=== PATIENT | female | born 1945 | race Caucasian/White ===

== ENCOUNTER 2021-08-30 09:32 | Inpatient (IN) ==
--- NOTE | 2021-08-30 10:15 | XRay Report ---
XR chest 2V PA/lateral CLINICAL HISTORY: Atypical chest pain. COMPARISON STUDY: No previous studies for comparison. FINDINGS: Bibasilar consolidation is noted with small bilateral pleural effusions. Air bronchograms w ithin the left lower lobe are noted. There is no pneumothorax. Cardiac size is normal. There is no ev idence for pulmonary edema. IMPRESSION: 1. Bibasilar consolidation which favors pneumonia. Radiographic follow-up to ensure resolution is rec ommended. 2. Small bilateral pleural effusions. ACT 112: Negative or not required by law. Electronically signed by: Ciro Hamilton M.D. 08/30/2021 10:14 AM
[2021-08-30 10:31] LABS: Basophils # (auto) 0.03 K/uL (0-0.2); Basophils % (auto) 0.3 %; Eosinophils # (auto) 0.12 K/uL (0-0.5); Eosinophils % (auto) 1.2 %; Hematocrit (blood only) 40.7 % (37-47); Hemoglobin 14.1 g/dL (12.0-16.0); Immature Granulocytes # (auto) 0.05 K/uL (0.00-0.02); Immature Granulocytes % (auto) 0.5 %; Lymphocytes # (auto) 1.11 K/uL (1.2-3.4); Lymphocytes % (auto) 11.2 %; Mean Corpuscular Hemoglobin 29.9 pg (25-34); Mean Corpuscular Hgb Conc 34.6 g/dL (32-36); Mean Corpuscular Volume 86.2 fL (80-100); Mean Platelet Volume 8.9 fL (7.4-10.4); Monocytes % (auto) 8.1 %; Neutrophils # (auto) 7.78 K/uL (1.4-6.5); Neutrophils % (auto) 78.7 %; Platelet Count 378 K/uL (130-400); RDW Coefficient of Variation 13.7 % (11.5-14.5); RDW Standard Deviation 43.4 fL (36.4-46.3); Red Blood Count 4.72 M/uL (4.2-5.4); White Blood Count 9.89 K/uL (4.8-10.8)
[2021-08-30 10:42] LABS: INR 1.1 (0.9-1.1); Partial Thromboplastin Ratio 1.1; Partial Thromboplastin Time 29.9 Seconds (21.0-31.0); Prothrombin Time 10.8 Seconds (9.0-12.0)
[2021-08-30 10:58] LABS: Alanine Aminotransferase 29 U/L (12-78); Albumin Globulin Ratio 0.5 (0.9-2); Albumin Level 2.7 gm/dl (3.4-5.0); Alkaline Phosphatase 163 U/L (45-117); BUN Creatinine Ratio 25.5 (10-20); Bilirubin,Total 1.3 mg/dl (0.2-1); Blood Urea Nitrogen 12 mg/dl (7-18); Calcium 9.6 mg/dl (8.5-10.1); Carbon Dioxide 25 mmol/L (21-32); Chloride 94 mmol/L (98-107); Est GFR (Non-African American) 96.6 ml/min; Globulin 5.1 gm/dl (2.5-4.0); Glucose 124 mg/dl (70-99); Sodium 126 mmol/L (136-145); Total Protein 7.8 gm/dl (6.4-8.2); Troponin I < 0.015 ng/ml (0-0.045)
[2021-08-30] MEDS ORDERED: SODIUM CHLORIDE 0.9% 1000ML 1,000 ML IV ONE (11:03)
[2021-08-30] MEDS ORDERED: MAGNESIUM SULFATE / D5W 1 GM/100 ML BAG IV STA (11:04)
--- NOTE | 2021-08-30 11:09 | Emergency Department Note ---
Impression & Plan Atrial fibrillation with rapid ventricular response, Pneumonia, Acute hyponatremia ED Provider Note NAME: BAILEY OWENS AGE: 75 SEX: F : 1945 ARRIVES VIA: Walk-In INFORMANT: Patient, ED PROVIDER(S): Trip Aldana DO CHIEF COMPLAINT: Palpitations HPI: The patient is a 75-year-old female who presented to the emergency dep artment with family for an evaluation palpitations and shortness of breath. The patient has had ongoing symptoms for the last few weeks. She became consistently worse over the last 48 hours. She notices shortness of breath as well as cough. She denies having any fever. He is also noticed that her heart rate has been fast. She has a history of atrial fibrillation. She does not take any oral anticoagulation but does take a blood pressure medication. She states that she has been compliant with all of her usual outpatient medications. She denies having any recent trauma. She denies having any fever or exposure to COVID-19. The patient denies having any lower extremity swelling or pain. ROS: See above HPI for pertinent positives & negatives. A total of 10 systems reviewed and were otherwise negative. PAST MEDICAL HISTORY: See Below PAST SURGICAL HISTORY: See Below FAMILY HISTORY: See Below SOCIAL HISTORY: See Below HOME MEDICATIONS: See Below ALLERGIES: See Below VITALS: See Below PHYSICAL EXAMINATION: GENERAL: Patient is awake alert in no acute distress patient is resting comfortably and showing no signs of anxiety EYES: The conjunctivae are clear. The pupils are round and reactive. EARS, NOSE, MOUTH AND THROAT: The nose is without any evidence of any deformity. Mucous membranes are moist. Tongue is midline. NECK: The neck is nontender and supple. RESPIRATORY: Diminished breath sounds are noted at both bases. There were rales noted in the lower lung gaines. Mild conversational dyspnea was noted. CARDIOVASCULAR: Regular rate and rhythm noted there no murmurs rubs or gallops normal S1 normal S2. GASTROINTESTINAL: The abdomen is soft. Abdomen is nontender. MUSCULOSKELETAL/EXTREMITIES: There is no evidence of gross deformity full range of motion is noted in the hips and shoulders. SKIN: Skin is warm and dry. There is no pedal edema. There was a small area of healing cellulitis noted in the left lower leg. There is no lymphangitic streaking. NEUROLOGIC: Patient is awake alert and oriented x3. MEDICAL DECISION MAKING: The patient is a 75-year-old female who presented to the emergency department for an evaluation of difficulty breathing and palpitations. The patient was found to be in rapid atrial fibrillation. She was treated with fluid in the emergency department. Her pulse rate did improve and her symptoms improved as well. She continues have significant shortness of breath. She was found no signs of bilateral pneumonia. I discussed the patient's laboratory and r adiographic studies with her. She was started on IV antibiotics in the emergency department. She was also given IV heparin. She was also given IV magnesium. [facility] They have agreed to evaluate the patient in the emergency department for further management and disposition. Triage Nursing notes reviewed. Prior medical records reviewed Vital Signs: reviewed and remarkable for tachycardia and hypertension. Differential diagnosis: Premature contractions, electrolyte abnormality, cardiac dysrhythmia, thyroid dysfunction, pulmonary embolism, infection, gastrointestinal, as well as other pathologies. ER treatment provided: See below Diagnostics interpreted by me: ECG: EKG was obtained in the emergency department. My interpretation is atrial flutter at 94 bpm. There were no PVCs noted. Nonspecific T wave abnormalities were noted. No previous tracing was available. Cardiac Monitoring: An order was placed for continuous cardiac monitoring. The monitor shows a rate of 98 bpm with sinus rhythm. Laboratory studies: As stated above and show below. Imaging studies: See below Consultation(s): I discussed the case with Esther who [facility] She will evaluate the patient in the emergency department. ED COURSE: Procedures: none PDMP:reviewed and no issues Critical Care: I have personally spent greater than 55 minutes of critical care time in the direct management of this patient. This includes bedside care, interpretation of diagnostic studies, and testing, discussion with consultants, patient, and family members, and other required patient management activities. This 55 minutes is in excess of all separately billable procedures. Past Med/Surg History Medical History Atrial fibrillation Hypertension Surgical History H/O section Family History Other Cancer Coronary heart disease Social History (Updated 08/30/21 @ 13:53 by Etta Rodriguez PA-C) Smoking Status: Never smoker Hx Alcohol Use: No Hx Substance Use: No Current Living Situation: Family Feels Safe at Home: Yes Allergies Allergies Allergy/AdvReac Type Severity Reaction Status Date / Time No Known Allergies Allergy Unverified 08/30/21 13:07 Home Meds Home Medications Medication Instructions Recorded Confirmed Blood Pressure Medication 1 tab PO DAILY 08/30/21 08/30/21 aspirin 81 mg tablet,delayed 81 mg PO DAILY 08/30/21 08/30/21 release (Aspirin Low Dose) garlic 1,000 mg PO PC 08/30/21 08/30/21 metoprolol tartrate 50 mg PO DAILY 08/30/21 08/30/21 Results & Data (ED) Vital Signs Vital Signs - 24 hr 08/30/21 09:39 08/30/21 11:03 08/30/21 13:00 Temperature 36.9 C Temperature Source Temporal Artery Scan Pulse Rate 122 H Pulse Rate [Apical] 95 H 85 Pulse Rhythm Regular Pulse Rhythm [Apical] Regular Irregular Pulse Strength [Apical] Normal Normal Respiratory Rate 16 16 18 Respiratory Effort / Characteristics Non-Labored Spontaneous Non-Labored Spontaneous Non-Labored Respiratory Depth Normal Normal Normal Respiratory Pattern Regular Blood Pressure 151/86 H Blood Pressure [Right Arm] 174/82 H 174/82 H Blood Pressure Mean 107 Blood Pressure Mean [Right Arm] 112 112 Blood Pressure Position [Right Arm] Sitting Lying Pulse Oximetry 93 92 93 Oxygen Delivery Method Room Air Room Air Room Air Sepsis Recent Fever Within 48 Hours No Sepsis New/Unexplained Change in Mental Status No Sepsis Action Taken by Nursing No Action Required 08/30/21 13:28 Temperature Temperature Source Pulse Rate Pulse Rate [Apical] 98 H Pulse Rhythm Pulse Rhythm [Apical] Regular Pulse Strength [Apical] Respiratory Rate 18 Respiratory Effort / Characteristics Non-Labored Respiratory Depth Normal Respiratory Pattern Blood Pressure Blood Pressure [Right Arm] 182/87 H Blood Pressure Mean Blood Pressure Mean [Right Arm] 118 Blood Pressure Position [Right Arm] Lying Pulse Oximetry 94 Oxygen Delivery Method Room Air Sepsis Recent Fever Within 48 Hours Sepsis New/Unexplained Change in Mental Status Sepsis Action Taken by Long-Term Medications Current Medication List: was personally reviewed by me Laboratory Data Attestation: I reviewed the patient's lab results. Result diagrams: 08/30/21 10:23 08/30/21 12:07 Lab Results 08/30/21 08/30/21 08/30/21 Range/Units 10:23 10:23 10:23 WBC 9.89 (4.8-10.8) K/uL RBC 4.72 (4.2-5.4) M/uL Hgb 14.1 (12.0-16.0) g/dL Hct 40.7 (37-47) % MCV 86.2 (80-100) fL MCH 29.9 (25-34) pg MCHC 34.6 (32-36) g/dL RDW Std Deviation 43.4 (36.4-46.3) fL RDW Coeff of Wallace 13.7 (11.5-14.5) % Plt Count 378 (130-400) K/uL MPV 8.9 (7.4-10.4) fL Immature Gran % (Auto) 0.5 % Neut % (Auto) 78.7 % Lymph % (Auto) 11.2 % [place] % (Auto) 8.1 % Eos % (Auto) 1.2 % Baso % (Auto) 0.3 % Neut # (Auto) 7.78 H (1.4-6.5) K/uL Lymph # (Auto) 1.11 L (1.2-3.4) K/uL [place] # (Auto) 0.80 H (0.11-0.59) K/uL Eos # (Auto) 0.12 (0-0.5) K/uL Baso # (Auto) 0.03 (0-0.2) K/uL Immature Gran # (Auto) 0.05 H (0.00-0.02) K/uL Peripher Smr Path Cons PT 10.8 (9.0-12.0) Seconds INR 1.1 (0.9-1.1) APTT 29.9 (21.0-31.0) Seconds PTT Ratio 1.1 D-Dimer 740 H* (0-500) ug/L FEU Sodium 126 L (136-145) mmol/L Potassium TNP Chloride 94 L (98-107) mmol/L Carbon Dioxide 25 (21-32) mmol/L Anion Gap 7.0 (3-11) BUN 12 (7-18) mg/dl Creatinine 0.47 L (0.6-1.2) mg/dl Est Cr Clr Drug Dosing Not Reportable Est GFR ( Amer) 112.0 ml/min Est GFR (Non-Af Amer) 96.6 ml/min BUN/Creatinine Ratio 25.5 H (10-20) Glucose 124 H (70-99) mg/dl Osmolality (280-300) mOsm/kg Lactate (0.4-2.0) mmol/L Calcium 9.6 (8.5-10.1) mg/dl Magnesium (1.8-2.4) mg/dl Total Bilirubin 1.3 H (0.2-1) mg/dl AST (15-37) U/L ALT 29 (12-78) U/L Alkaline Phosphatase 163 H (45-117) U/L Troponin I < 0.015 (0-0.045) ng/ml NT-Pro-B Natriuret Pep (0-900) pg/ml Total Protein 7.8 (6.4-8.2) gm/dl Albumin 2.7 L (3.4-5.0) gm/dl Globulin 5.1 H (2.5-4.0) gm/dl Albumin/Globulin Ratio 0.5 L (0.9-2) Procalcitonin (0-0.5) ng/ml TSH (0.300-4.500) uIu/ml Ur Random Sodium mmol/L Anaplasma Smear Lyme Disease IgG Ab (Negative) Lyme Disease IgM Ab (Negative) SARS-CoV-2 (PCR) (Negative) 08/30/21 08/30/21 08/30/21 Range/Units 10:23 10:23 10:23 WBC (4.8-10.8) K/uL RBC (4.2-5.4) M/uL Hgb (12.0-16.0) g/dL Hct (37-47) % MCV (80-100) fL MCH (25-34) pg MCHC (32-36) g/dL RDW Std Deviation (36.4-46.3) fL RDW Coeff of Wallace (11.5-14.5) % Plt Count (130-400) K/uL MPV (7.4-10.4) fL Immature Gran % (Auto) % Neut % (Auto) % Lymph % (Auto) % [place] % (Auto) % Eos % (Auto) % Baso % (Auto) % Neut # (Auto) (1.4-6.5) K/uL Lymph # (Auto) (1.2-3.4) K/uL [place] # (Auto) (0.11-0.59) K/uL Eos # (Auto) (0-0.5) K/uL Baso # (Auto) (0-0.2) K/uL Immature Gran # (Auto) (0.00-0.02) K/uL Peripher Smr Path Cons Cancelled PT (9.0-12.0) Seconds INR (0.9-1.1) APTT (21.0-31.0) Seconds PTT Ratio D-Dimer Cancelled (0-500) ug/L FEU Sodium (136-145) mmol/L Potassium Chloride (98-107) mmol/L Carbon Dioxide (21-32) mmol/L Anion Gap (3-11) BUN (7-18) mg/dl Creatinine (0.6-1.2) mg/dl Est Cr Clr Drug Dosing Est GFR ( Amer) ml/min Est GFR (Non-Af Amer) ml/min BUN/Creatinine Ratio (10-20) Glucose (70-99) mg/dl Osmolality (280-300) mOsm/kg Lactate (0.4-2.0) mmol/L Calcium (8.5-10.1) mg/dl Magnesium (1.8-2.4) mg/dl Total Bilirubin (0.2-1) mg/dl AST (15-37) U/L ALT (12-78) U/L Alkaline Phosphatase (45-117) U/L Troponin I (0-0.045) ng/ml NT-Pro-B Natriuret Pep (0-900) pg/ml Total Protein (6.4-8.2) gm/dl Albumin (3.4-5.0) gm/dl Globulin (2.5-4.0) gm/dl Albumin/Globulin Ratio (0.9-2) Procalcitonin (0-0.5) ng/ml TSH (0.300-4.500) uIu/ml Ur Random Sodium mmol/L Anaplasma Smear See Comment Lyme Disease IgG Ab (Negative) Lyme Disease IgM Ab (Negative) SARS-CoV-2 (PCR) (Negative) 08/30/21 08/30/21 08/30/21 Range/Units 11:52 12:07 12:07 WBC (4.8-10.8) K/uL RBC (4.2-5.4) M/uL Hgb (12.0-16.0) g/dL Hct (37-47) % MCV (80-100) fL MCH (25-34) pg MCHC (32-36) g/dL RDW Std Deviation (36.4-46.3) fL RDW Coeff of Wallace (11.5-14.5) % Plt Count (130-400) K/uL MPV (7.4-10.4) fL Immature Gran % (Auto) % Neut % (Auto) % Lymph % (Auto) % [place] % (Auto) % Eos % (Auto) % Baso % (Auto) % Neut # (Auto) (1.4-6.5) K/uL Lymph # (Auto) (1.2-3.4) K/uL [place] # (Auto) (0.11-0.59) K/uL Eos # (Auto) (0-0.5) K/uL Baso # (Auto) (0-0.2) K/uL Immature Gran # (Auto) (0.00-0.02) K/uL Peripher Smr Path Cons PT (9.0-12.0) Seconds INR (0.9-1.1) APTT (21.0-31.0) Seconds PTT Ratio D-Dimer (0-500) ug/L FEU Sodium (136-145) mmol/L Potassium 4.0 Chloride (98-107) mmol/L Carbon Dioxide (21-32) mmol/L Anion Gap (3-11) BUN (7-18) mg/dl Creatinine (0.6-1.2) mg/dl Est Cr Clr Drug Dosing Est GFR ( Amer) ml/min Est GFR (Non-Af Amer) ml/min BUN/Creatinine Ratio (10-20) Glucose (70-99) mg/dl Osmolality 269 L (280-300) mOsm/kg Lactate (0.4-2.0) mmol/L Calcium (8.5-10.1) mg/dl Magnesium 2.6 H (1.8-2.4) mg/dl Total Bilirubin (0.2-1) mg/dl AST 27 (15-37) U/L ALT (12-78) U/L Alkaline Phosphatase (45-117) U/L Troponin I (0-0.045) ng/ml NT-Pro-B Natriuret Pep 862 (0-900) pg/ml Total Protein (6.4-8.2) gm/dl Albumin (3.4-5.0) gm/dl Globulin (2.5-4.0) gm/dl Albumin/Globulin Ratio (0.9-2) Procalcitonin (0-0.5) ng/ml TSH 1.070 (0.300-4.500) uIu/ml Ur Random Sodium 39 mmol/L Anaplasma Smear Lyme Disease IgG Ab (Negative) Lyme Disease IgM Ab (Negative) SARS-CoV-2 (PCR) (Negative) 08/30/21 08/30/21 08/30/21 Range/Units 12:07 12:17 13:16 WBC (4.8-10.8) K/uL RBC (4.2-5.4) M/uL Hgb (12.0-16.0) g/dL Hct (37-47) % MCV (80-100) fL MCH (25-34) pg MCHC (32-36) g/dL RDW Std Deviation (36.4-46.3) fL RDW Coeff of Wallace (11.5-14.5) % Plt Count (130-400) K/uL MPV (7.4-10.4) fL Immature Gran % (Auto) % Neut % (Auto) % Lymph % (Auto) % [place] % (Auto) % Eos % (Auto) % Baso % (Auto) % Neut # (Auto) (1.4-6.5) K/uL Lymph # (Auto) (1.2-3.4) K/uL [place] # (Auto) (0.11-0.59) K/uL Eos # (Auto) (0-0.5) K/uL Baso # (Auto) (0-0.2) K/uL Immature Gran # (Auto) (0.00-0.02) K/uL Peripher Smr Path Cons PT (9.0-12.0) Seconds INR (0.9-1.1) APTT (21.0-31.0) Seconds PTT Ratio D-Dimer (0-500) ug/L FEU Sodium (136-145) mmol/L Potassium Chloride (98-107) mmol/L Carbon Dioxide (21-32) mmol/L Anion Gap (3-11) BUN (7-18) mg/dl Creatinine (0.6-1.2) mg/dl Est Cr Clr Drug Dosing Est GFR ( Amer) ml/min Est GFR (Non-Af Amer) ml/min BUN/Creatinine Ratio (10-20) Glucose (70-99) mg/dl Osmolality (280-300) mOsm/kg Lactate 1.0 (0.4-2.0) mmol/L Calcium (8.5-10.1) mg/dl Magnesium (1.8-2.4) mg/dl Total Bilirubin (0.2-1) mg/dl AST (15-37) U/L ALT (12-78) U/L Alkaline Phosphatase (45-117) U/L Troponin I (0-0.045) ng/ml NT-Pro-B Natriuret Pep (0-900) pg/ml Total Protein (6.4-8.2) gm/dl Albumin (3.4-5.0) gm/dl Globulin (2.5-4.0) gm/dl Albumin/Globulin Ratio (0.9-2) Procalcitonin 0.10 (0-0.5) ng/ml TSH (0.300-4.500) uIu/ml Ur Random Sodium mmol/L Anaplasma Smear Lyme Disease IgG Ab Negative (Negative) Lyme Disease IgM Ab Negative (Negative) SARS-CoV-2 (PCR) NEGATIVE (Negative) Administered Medications Heparin Sodium/Dextrose (Heparin Iv Adult Wt-Based Standard *No* Bolus Protocol) 1 ea IV Q15M [facility]; Protocol Stop: 08/30/21 15:16 Last Admin: 08/30/21 14:40 Dose: 1 ea Documented by: [id number] Discontinued Medications Heparin Sodium/Dextrose (Heparin 10683 Unit/500 Ml D5w) Confirm Administered Dose 25,000 units IV .[facility] Stop: 08/30/21 14:35 Last Admin: 08/30/21 14:39 Dose: 1,100 units Documented by: [id number] Cosigned by: [id number] Sodium Chloride (Nss 1000ml) 1,000 mls @ 999 mls/hr IV .Q1H1M ONE Stop: 08/30/21 12:03 Last Admin: 08/30/21 11:36 Dose: Not Given Documented by: [id number] Magnesium Sulfate/Dextrose (Magnesium Sulfate / D5w) 1 gm in 100 mls @ 100 mls/hr IV NOW STA Stop: 08/30/21 12:03 Last Infusion: 08/30/21 12:19 Dose: 0 mls/hr Documented by: [id number] Admin: 08/30/21 11:19 Dose: 100 mls/hr Documented by: [id number] Ceftriaxone Sodium (Rocephin) 1,000 mg in 50 mls @ 100 mls/hr IV NOW STA Stop: 08/30/21 12:27 Last Infusion: 08/30/21 13:14 Dose: 0 mls/hr Documented by: [id number] Admin: 08/30/21 12:44 Dose: 100 mls/hr Documented by: [id number] Imaging Data Radiologist's Impression: Chest X-Ray 08/30/21 09:43 XR chest 2V PA/lateral CLINICAL HISTORY: Atypical chest pain. COMPARISON STUDY: No previous studies for comparison. FINDINGS: Bibasilar consolidation is noted with small bilateral pleural e ffusions. Air bronchograms within the left lower lobe are noted. There is no pneumothorax. Cardiac size is normal. There is no evidence for pulmonary edema. IMPRESSION: 1. Bibasilar consolidation which favors pneumonia. Radiographic follow-up to ensure resolution is recommended. 2. Small bilateral pleural effusions. ACT 112: Negative or not required by law. Electronically signed by: Ciro Hamilton M.D. 08/30/2021 10:14 AM Discharge Plan Visit Data Chief Complaint: Tachycardia Stated Complaint: COUGH,HEADACHE,SORETHROAT,TACHYCARDIA ED Provider: Trip Aldana Discharge Problem: Atrial fibrillation with rapid ventricular response, Pneumonia, Acute hyponatremia Patient Disposition: Being Evaluated by Hospitalist Forms Stand Alone Forms: My [facility] Prescriptions Prescriptions: No Action aspirin [Aspirin Low Dose] 81 mg Tablet,Delayed Release (Dr/Ec) 81 mg PO DAILY RF: 0 garlic Tablet 1,000 mg PO PC RF: 0 Blood Pressure Medication 1 tab PO DAILY RF: 0 metoprolol tartrate 50 mg 50 mg PO DAILY RF: 0 Referrals Referrals: PCP,NO [Primary Care Provider] -
[2021-08-30] MEDS ORDERED: cefTRIAXone SODIUM 1,000 MG/50 ML BAG IV STA (11:58)
--- NOTE | 2021-08-30 12:36 | History & Physical Report ---
Date of Service August 30, 2021 Assessment & Plan (1) Pneumonia: Plan: This is a 75-year-old female with PMH of atrial fibrillation not on anticoagulation and hypertension who presents with malaise, cough and palpitations over the past few weeks and was found to have pneumonia and A flutter. Two weeks of viral symptoms, recently developed wet cough and SOB Afebrile, no leukocytosis, lactate and procal WNL. Covid PCR negative CXR with bibasilar consolidation which favors pneumonia D-dimer elevated and tachycardic, will obtain CTA chest to evaluate for PE Started on Rocephin and Azithromycin for CAP, Xopenex nebs Q6HR (2) Atrial flutter: Plan: Remote history of A fib diagnosed 20 years ago, not anticoagulated or receiving regular medical care Taking metoprolol tartrate 50mg daily, last took this morning EKG with A flutter at 96 bpm Potassium and Mag wnl, TSH wnl Discussed with Dr. Lanier, starting IV heparin for anticoagulation Lopressor PRN for HR >110 (3) Hyponatremia: Plan: Hypotonic hyponatremia in setting of infection, poor PO intake Awaiting urine osm Continue gentle IV fluids, monitor with daily BMP (4) Hypertension: Plan: Continue Lopressor DVT Ppx: IV heparin Code status: FULL PCP: no PCP Dispo: Admitted to PCU Patient seen in collaboration with Dr. Borja. Please see addendum. History of Present Illness Chief Complaint: Malaise, cough, shortness of breath, tachycardia Primary Care Provider: NO PCP This is a 75-year-old female with PMH of atrial fibrillation not on anticoagulation and hypertension who presents with malaise, cough and palpitations over the past few weeks. Patient began to feel poorly approximately 2 weeks ago with sore throat and headache as well as low-grade fever of 99 F. Continue to feel tired with wet productive cough and decreased appetite as well as developing shortness of breath over the past few days. Has felt generally weak and unable to perform work duties as usual. Has had intermittent palpitations of the past 2 weeks but have been persistent for the past 24 hours. Also felt lightheaded this morning and near syncopal, further prompting presentation to ED. Does endorse remote history of atrial fibrillation diagnosis 20 years ago when she lived in [place]. Patient is [employer] and does not receive routine medical care. However she does intermittently follow-up with a primary care doctor in [place] named Dr. Singer. He prescribes her 1 medication for blood pressure/atrial fibrillation that she believes is metoprolol. Dose unknown. Daughter is calling shared communal phone to try to confirm medication name and dose. Was initially on anticoagulation 20 years ago for a few months before she was instructed to discontinue. Takes a baby aspirin. Denies any known history of coronary artery disease, blood clots or diabetes. Children who live with patient were sick a few weeks ago. No known Covid although family and community members unvaccinated. Patient denies current fever, chills, headache, chest pain, hemoptysis, nausea, vomiting, abdominal pain, dysuria, diarrhea or constipation. Does have increased urinary urgency over the past week. Allergies Allergy/AdvReac Type Severity Reaction Status Date / Time No Known Allergies Allergy Unverified 08/30/21 13:07 Home Medications Medication Instructions Recorded Confirmed Type Blood Pressure Medication 1 tab PO DAILY 08/30/21 08/30/21 History aspirin 81 mg tablet,delayed 81 mg PO DAILY 08/30/21 08/30/21 History release (Aspirin Low Dose) garlic 1,000 mg PO PC 08/30/21 08/30/21 History metoprolol tartrate 50 mg PO DAILY 08/30/21 08/30/21 History Past Med/Surg History Medical History Atrial fibrillation Hypertension Surgical History H/O section Family History Other Cancer Coronary heart disease Social History (Updated 08/30/21 @ 13:53 by Etta Rodriguez PA-C) Smoking Status: Never smoker Hx Alcohol Use: No Hx Substance Use: No Current Living Situation: Family Feels Safe at Home: Yes Review of Systems Review of Systems: At least ten systems reviewed and negative except as noted in the HPI. Physical Exam Physical Exam: General Appearance: WD/WN, vitals as above, NAD, lying in bed, pleasant, conversing easily Head: normocephalic, atraumatic Eyes: normal inspection, PERRL, conjunctivae normal, anicteric sclerae ENT: external ear and nose normal, dry mucous membranes oropharynx Neck: normal visual inspection, trachea midline, no thyromegaly Respiratory: normal respiratory effort, bibasilar rales, scattered rhonchi throughout, no wheezing. No accessory muscle use Cardiovascular: tachycardic rate, regular rhythm, no murmur appreciated, normal peripheral pulses, no BLE edema. Vessels: no JVD Chest: normal inspection of chest Abdomen/GI: normal bowel sounds, soft, nontender, no hepatosplenomegaly Extremities/Musculoskeletal: no cyanosis or clubbing, extremities motor strength 5/5 Neurologic: PERRL, EOMI, accommodation nl, no face palsy, no dysarthria, CN's II-XI intact bilaterally and moves all extremities Psychiatric: A+Ox3, euthymic affect Skin: Small area of erythema LLE on anterior aspect of ankle, non-tender and no drainage. Normal color, warm/dry Results & Data Results & Data ([facility]) Vital Signs (Past 12 Hours) Vital Signs Temp Pulse Pulse Resp BP BP Pulse Ox 08/30/21 11:03 95 H 16 174/82 H 92 08/30/21 09:39 36.9 C 122 H 16 151/86 H 93 Laboratory Results Short CBC 08/30/21 Range/Units 10:23 WBC 9.89 (4.8-10.8) K/uL Hgb 14.1 (12.0-16.0) g/dL Hct 40.7 (37-47) % Plt Count 378 (130-400) K/uL BMP 08/30/21 08/30/21 10:23 12:07 Sodium 126 L Potassium TNP 4.0 Chloride 94 L Carbon Dioxide 25 BUN 12 Creatinine 0.47 L Glucose 124 H Calcium 9.6 Cardiac Enzymes 08/30/21 Range/Units 10:23 Troponin I < 0.015 (0-0.045) ng/ml Liver Function 08/30/21 08/30/21 Range/Units 10:23 12:07 Total Bilirubin 1.3 H (0.2-1) mg/dl AST 27 (15-37) U/L ALT 29 (12-78) U/L Alkaline Phosphatase 163 H (45-117) U/L Albumin 2.7 L (3.4-5.0) gm/dl Diagnostic Findings Chest X-Ray 08/30/21 09:43 XR chest 2V PA/lateral CLINICAL HISTORY: Atypical chest pain. COMPARISON STUDY: No previous studies for comparison. FINDINGS: Bibasilar consolidation is noted with small bilateral pleural effusions. Air bronchograms within the left lower lobe are noted. There is no pneumothorax. Cardiac size is normal. There is no evidence for pulmonary edema. IMPRESSION: 1. Bibasilar consolidation which favors pneumonia. Radiographic follow-up to ensure resolution is recommended. 2. Small bilateral pleural effusions. ACT 112: Negative or not required by law. Electronically signed by: Ciro Hamilton M.D. 08/30/2021 10:14 AM ECG Additional Comments: A flutter Code Status & VTE Plan VTE Prophylaxis Plan VTE Prophylaxis will be ordered: Yes Supervising Physician Co-Signing Physician Notes 75-year-old female with PMH of atrial fibrillation not on anticoagulation (was earlier on coumadin, stopped by doctor per Pt) and hypertension who presents 08/30 with malaise, cough and palpitations over the past few weeks [employer]. She is being managed for the following: #. CAP: CXR- bibasilar pna w/ b/l small pl. Eff. Zithro + Rocephin; continue to monitor pl. Eff. #. Afib/flutter: Card; Echo; Heparin drip, not in RVR, Telemetry #. LLE cellulitis: on ATB per PNA #. Hyponatremia: TSH nl, Urine and Serum Osm; increase protein intake; monitor daily. Consider Nephro if worsening #. HTN: resume home meds if available, prn meds. Upon Exam GENERAL: Alert and oriented x3. NAD, on RA. HEENT: No pallor, no icterus. Pupils equal, round and reactive to light. Oral mucosa moist. NECK: No JVD, no neck masses. HEART: S1 and S2 heard. Regular rate and rhythm. No murmur, no gallop. RESPIRATORY SYSTEM: Normal AP diameter. No accessory muscle use. No wheezing, no crackles. Increased breath sounds bibasal, wet cough at bedside. ABDOMEN: Soft, bowel sounds present, nontender, no distention. CENTRAL NERVOUS SYSTEM: Alert and oriented x3. No facial droop. Speech is clear. Obeys simple commands. Moves extremities. EXTREMITIES: No edema, no erythema elsewhere seen. LLE anterior to ankle - 5x7 cm erythema, tenderness and induration noted. I have seen and examined the patient and have discussed the case with the provider above. I agree with the assessment and plan as stated.
[2021-08-30 13:05] LABS: D Dimer 740 ug/L FEU (0-500)
[2021-08-30 13:07] LABS: Magnesium 2.6 mg/dl (1.8-2.4); Thyroid Stimulating Hormone 1.07 uIu/ml (0.300-4.500)
[2021-08-30 13:30] LABS: Lyme Ab IgG w/WB Rflx Negative (Negative); Lyme Ab IgM w/WB Rflx Negative (Negative)
[2021-08-30] MEDS ORDERED: cefTRIAXone SODIUM 1,000 MG/50 ML BAG IV ONE (14:30)
[2021-08-30] MEDS ORDERED: HEPARIN 25000 UNIT/500 ML D5W IV ONE (14:34)
[2021-08-30] MEDS: Heparin IV Adult Wt-Based Standard *NO* Bolus Protocol IV SCH ×5 (14:40→19:02)
--- NOTE | 2021-08-30 15:06 | CT Scan Report ---
CT angio chest PE protocol CLINICAL HISTORY: Tachycardia and shortness of breath. Evaluate for pulmonary embolus. Findings suspicious for pneumonia. COMPARISON STUDY: Portable chest from 08/30/2021 CT DOSE: 256.18 mGy.cm TECHNIQUE: CT Angio of the chest was performed.followed by image post processing with coronal, and s agittal MIP reformats. Contrast Volume: Optiray 320, 100 ml FINDINGS: Vasculature: There is homogeneous perfusion of the pulmonary vasculature bilaterally. No intraluminal filling defects or evidence for pulmonary embolus is seen. Airway: The airway is clear. No endobronchial lesion is identified. Lungs: There is evidence for postobstructive atelectasis/collapse of the right lower lobe with eviden ce for inferior right hilar adenopathy obstructing the airway. No air bronchograms are present to carlo pect pneumonia. Additionally, there is evidence for a confluent alveolar opacity in the left lower lobe with air bron chograms. This is most characteristic of pneumonia. The upper lungs are clear bilaterally. No focal p ulmonary nodules are identified. Pleura: There is no evidence for pleural effusion. There is no evidence for pneumothorax. Mediastinum: There is evidence for AP window adenopathy measuring 1.8 x 1.3 cm. There is subcarinal a denopathy present measuring approximately 2.9 x 1.8 cm. There is right hilar adenopathy present measu ring 3.0 x 2.9 cm and inferior right hilar adenopathy/mass present measuring 2.6 x 2.6 cm. This enlar ged lymph node is what is producing the atelectasis/collapse of the right lower lobe. Small calcified lymph nodes are also present. The heart size is within normal limits. The thoracic aorta is within normal limits. There is no evide nce for pericardial effusion. Upper abdomen:The right adrenal gland is within normal limits. Left adrenal gland was not included on this study. Osseous structures: There is no acute osseous pathology. Impression: 1. No CTA evidence for pulmonary embolus. 2. Evidence for inferior right hilar mass with postobstructive atelectasis/collapse involving the rig ht lower lobe. 3. AP window, subcarinal and additional right hilar adenopathy characteristic of metastatic disease. 4. Confluent alveolar opacity within the left lower lobe with air bronchograms most characteristic of the presence of pneumonia. 5. Follow-up PET/CT would be the study of choice for further evaluation. ACT 112: Negative or not required by law. Electronically signed by: Alden George M.D. 08/30/2021 3:05 PM
[2021-08-30 16:38] LABS: Appearance Urine Clear (Clear); Bilirubin Urine Negative (Negative); Blood Urine Negative (Negative); Color Urine Yellow; Glucose Urine UA Negative (Negative); Ketones Urine Trace (Negative); Leukocyte Esterase Urine Negative (Negative); Nitrite Urine Negative (Negative); Protein Urine Negative (Negative); Specific Gravity Urine 1.009 (1.000-1.030); Urobilinogen Urine Negative (Negative); pH Urine 6.5 (4.5-7.5)
[2021-08-30] MEDS ORDERED: amLODIPine BESYLATE 5 MG TAB PO ONE (16:45)
[2021-08-30] MEDS ORDERED: POLYETHYLENE (MIRALAX) 17 GM PACK PO PRN (17:11)
[2021-08-30] MEDS ORDERED: METOPROLOL TARTRATE 1 MG/ML VIAL IV PRN (17:11)
[2021-08-30] MEDS ORDERED: ACETAMINOPHEN 325 MG TAB PO PRN (17:11)
[2021-08-30] MEDS: HEPARIN SODIUM/DEXTROSE 25,000 UNITS/500 ML BAG IV SCH ×2 (17:53→19:09)
[2021-08-30] MEDS: AZITHROMYCIN 500 MG in DEXTROSE 5% 250 ML IV SCH (17:59)
[2021-08-30] MEDS ORDERED: ENOXAPARIN INJ 40 MG/0.4 ML SYR SQ SCH (18:00)
[2021-08-30] MEDS: LEVALBUTEROL HCL 0.63 MG/3 ML NEB NEB SCH (20:32)
[2021-08-30 21:08] LABS: Partial Thromboplastin Ratio 1.5; Partial Thromboplastin Time 38.7 Seconds (21.0-31.0)
[2021-08-30 22:06] LABS: Partial Thromboplastin Ratio 1.7; Partial Thromboplastin Time 44.1 Seconds (21.0-31.0)
[2021-08-31] MEDS: LEVALBUTEROL HCL 0.63 MG/3 ML NEB NEB SCH ×4 (01:53→19:43)
[2021-08-31 05:19] LABS: Hematocrit (blood only) 37.1 % (37-47); Hemoglobin 12.6 g/dL (12.0-16.0); Mean Corpuscular Hemoglobin 29.4 pg (25-34); Mean Corpuscular Volume 86.7 fL (80-100); Mean Platelet Volume 9.1 fL (7.4-10.4); Platelet Count 346 K/uL (130-400); RDW Coefficient of Variation 13.8 % (11.5-14.5); RDW Standard Deviation 43.4 fL (36.4-46.3); Red Blood Count 4.28 M/uL (4.2-5.4)
[2021-08-31 05:38] LABS: BUN Creatinine Ratio 19.1 (10-20); Calcium 8.9 mg/dl (8.5-10.1); Creatinine Clr Calc Pharmacy 104.7 ml/min; Est GFR (African American) 116.2 ml/min; Est GFR (Non-African American) 100.3 ml/min; Magnesium 2.1 mg/dl (1.8-2.4)
[2021-08-31 05:52] LABS: Partial Thromboplastin Time 51.4 Seconds (21.0-31.0)
[2021-08-31] MEDS ORDERED: METOPROLOL TARTRATE 50 MG TAB PO SCH (09:00)
--- NOTE | 2021-08-31 10:03 | Cardiology Consultation ---
Date of Consultation August 31, 2021 Assessment & Plan (1) Pneumonia: (2) Atrial fibrillation/flutter: (3) Acute hyponatremia: (4) Hypertension: Pneumonia. Hyponatremia. Cellulitis. As per Hospitalist Symptomatic atrial fibrillation/flutter with a rapid ventricular response. Duration unknown. Classification (i.e. paroxysmal, persistent, long-standing, permanent) unknown at this point. [id number] Score is at least 5 points given her age of 75 or greater, female, hypertension history, and observed aortic plaque. Recommend titration of metoprolol for additional heart rate as well as blood pressure control. Continue heparin with transition to Coumadin anticoagulation with an INR goal of 2.0 to 3.0 unless a DOAC such as apixaban can be utilized. Hypertension. See above. Further recommendations to come (echocardiogram pending). An ACEI/ARB would likely be the next antihypertensive agent. Supervising Physician Co-Signing Physician Notes Patient seen and examined with Panda Demarco PA-C. Agree with findings and assessment as above. Symptomatic atrial fibrillation/flutter with rapid ventricular response in the setting of hyponatremia, cellulitis and pneumonia. Metoprolol dose should be titrated for heart rates less than 90 and heparin will be continued as a bridge until her INR is therapeutic in the range of 2-3. History of Present Illness Reason for Consultation: Atrial fibrillation not on anticoagulation Requesting Physician: Jonh Attending Physician: oJnh History of Present Illness Alix Jain is a very pleasant 75-year-old [facility] female who is originally from [place], [place], moving to [place], [place] approximately 8 years ago. She continues to follow-up with Dr. Singer in [place] for her medical care. She has not had local medical care. Ms. Jain has a history of atrial fibrillation dating back approximately 20 years. She notes that it has been kept under control with metoprolol. She describes being on Coumadin anticoagulation for a short while 20 years ago. She is chronically prescribed aspirin 81 mg/day. The patient presented to the [facility] Emergency Room on August 30, 2021 with complaints of worsening palpitations, shortness of breath, and a wet cough. Symptoms started a couple of weeks ago with a headache and sore throat, becoming worse over the last two days. She describes on quest ioning yellow mucus production, mild intermittent fevers, intermittent night sweats, and recurrent left lower extremity cellulitis (remote injury at the age of 10, chronic varicose veins), malaise, and weakness. She notes sick contacts at home. Evaluation thus far has revealed bilateral community-acquired pneumonia, left lower extremity cellulitis, hyponatremia, and atrial fibrillation/flutter with a rapid ventricular response. Cardiology was consulted due to the atrial fibrillation/flutter with a rapid ventricular response. It is unknown if the patient's atrial fibrillation is paroxysmal, persistent, or chronic. The patient describes having chronic palpitations that would come and go for a couple hours at a time, primarily at rest, not particularly when doing her housework. She denies history of myocardial infarction, congestive heart failure, heart murmur, rheumatic fever, or scarlet fever. Past Medical and Surgical History Atrial fibrillation, unspecified Hypertension Recurrent left lower extremity cellulitis Prediabetes section Family History: Positive for CAD. Social History: Nonsmoker. No alcohol. No substance abuse. [facility]. Lives in [place], originally from [place], [place]. Complete Review of Systems: Constitutional: Weight loss. + Intermittent fevers. Intermittent night sweats. No rigors. HEENT: Glasses. No amaurosis fugax. No recent change in hearing. No epistaxis. Pulmonary: Denies history of asthma, COPD, emphysema, or PE. Cardiac: See above. GI/Abd: No dysphagia. No melana or hematochezia. Denies liver or kidney problems. Vascular: Denies history of claudication, AAA, or carotid artery disease. Hematologic: No coagulation disorder, anemia, or abnormal bleeding. Musculoskeletal: Left leg fracture at the age of 10. Skin: Recurrent left lower extremity cellulitis. Neurologic: Denies history of TIA or CVA. Denies history of seizure. Female : cesaren section. Endocrine: Prediabetic. Denies thyroid problems. Complete Review of Systems is as stated above, negative, or noncontributory. Allergies Allergy/AdvReac Type Severity Reaction Status Date / Time No Known Allergies Allergy Unverified 08/30/21 13:07 Home Medications Medication Instructions Recorded Confirmed Type Blood Pressure Medication 1 tab PO DAILY 08/30/21 08/30/21 History aspirin 81 mg tablet,delayed 81 mg PO DAILY 11/22/21 11/22/21 History release (Aspirin Low Dose) garlic 1,000 mg PO PC 08/30/21 08/30/21 History metoprolol tartrate 50 mg PO DAILY 08/30/21 08/30/21 History Patient History Medical History Atrial fibrillation Hypertension Surgical History H/O section Family History Other Cancer Coronary heart disease Social History Smoking Status: Never smoker Hx Alcohol Use: No Hx Substance Use: No Communication Ability: Effective Beliefs That Will Affect Care: Congregational marital status: Current Living Situation: Family How many Children do You have: 8 Other Information That Helps Us Care for You: No Feels Safe at Home: Yes Safety Concerns: Feels Safe At This Time Assistive Devices: Oxygen - Continuous Physical Exam Physical Exam: General: A&Ox3. NAD. HENT: Normocephalic. Atraumatic. Eyes: PER. Conjunctiva pink, sclera clear. Neck: No carotid bruits. No JVD. No HJR. Heart: Irregular around 120 bpm. No murmur. PMI is nondisplaced. Lungs: Diminished. Decreased. Scattered rhonchi. No wheeze. Abdomen: +BS. Soft. Nontender. No masses or organomegaly. Extremities: Varicosities left lower extremity. Mild erythema. No clubbing. No cyanosis. Pulses: radial=2/4, posterior tibial=2/4. Limited neurological examination is without focal deficit. Results & Data ([facility]) Vital Signs (Past 12 Hours) Vital Signs Temp Pulse Pulse Resp BP Pulse Ox 08/31/21 07:36 36.7 C 129 H 18 144/77 H 91 08/31/21 03:34 37.2 C 128 H 144/74 H 90 08/31/21 01:29 124 H 08/30/21 22:33 36.8 C 125 H 18 154/84 H 93 Laboratory Results Laboratory Results - last 24 hr 08/30/21 08/30/21 08/30/21 10:23 10:23 10:23 WBC 9.89 RBC 4.72 Hgb 14.1 Hct 40.7 MCV 86.2 MCH 29.9 MCHC 34.6 RDW Std Deviation 43.4 RDW Coeff of Wallace 13.7 Plt Count 378 MPV 8.9 Immature Gran % (Auto) 0.5 Neut % (Auto) 78.7 Lymph % (Auto) 11.2 [place] % (Auto) 8.1 Eos % (Auto) 1.2 Baso % (Auto) 0.3 Neut # (Auto) 7.78 H Lymph # (Auto) 1.11 L [place] # (Auto) 0.80 H Eos # (Auto) 0.12 Baso # (Auto) 0.03 Immature Gran # (Auto) 0.05 H Peripher Smr Path Cons PT 10.8 INR 1.1 APTT 29.9 PTT Ratio 1.1 D-Dimer 740 H* Sodium 126 L Potassium TNP Chloride 94 L Carbon Dioxide 25 Anion Gap 7.0 BUN 12 Creatinine 0.47 L Est Cr Clr Drug Dosing Not Reportable Est GFR ( Amer) 112.0 Est GFR (Non-Af Amer) 96.6 BUN/Creatinine Ratio 25.5 H Glucose 124 H Osmolality Lactate Calcium 9.6 Magnesium Total Bilirubin 1.3 H AST ALT 29 Alkaline Phosphatase 163 H Troponin I < 0.015 NT-Pro-B Natriuret Pep Total Protein 7.8 Albumin 2.7 L Globulin 5.1 H Albumin/Globulin Ratio 0.5 L Procalcitonin TSH Urine Color Urine Appearance Urine pH Ur Specific [place] Urine Protein Urine Glucose (UA) Urine Ketones Urine Blood Urine Nitrite Urine Bilirubin Urine Urobilinogen Ur Leukocyte Esterase Urine Osmolality Ur Random Sodium Anaplasma Smear A. phagocytophilum DNA Lyme Disease IgG Ab Lyme Disease IgM Ab SARS-CoV-2 (PCR) 08/30/21 08/30/21 08/30/21 10:23 10:23 10:23 WBC RBC Hgb Hct MCV MCH MCHC RDW Std Deviation RDW Coeff of Wallace Plt Count MPV Immature Gran % (Auto) Neut % (Auto) Lymph % (Auto) [place] % (Auto) Eos % (Auto) Baso % (Auto) Neut # (Auto) Lymph # (Auto) [place] # (Auto) Eos # (Auto) Baso # (Auto) Immature Gran # (Auto) Peripher Smr Path Cons Cancelled PT INR APTT PTT Ratio D-Dimer Cancelled Sodium Potassium Chloride Carbon Dioxide Anion Gap BUN Creatinine Est Cr Clr Drug Dosing Est GFR ( Amer) Est GFR (Non-Af Amer) BUN/Creatinine Ratio Glucose Osmolality Lactate Calcium Magnesium Total Bilirubin AST ALT Alkaline Phosphatase Troponin I NT-Pro-B Natriuret Pep Total Protein Albumin Globulin Albumin/Globulin Ratio Procalcitonin TSH Urine Color Urine Appearance Urine pH Ur Specific [place] Urine Protein Urine Glucose (UA) Urine Ketones Urine Blood Urine Nitrite Urine Bilirubin Urine Urobilinogen Ur Leukocyte Esterase Urine Osmolality Ur Random Sodium Anaplasma Smear A. phagocytophilum DNA Pending Lyme Disease IgG Ab Lyme Disease IgM Ab SARS-CoV-2 (PCR) 08/30/21 08/30/21 08/30/21 10:23 11:52 11:52 WBC RBC Hgb Hct MCV MCH MCHC RDW Std Deviation RDW Coeff of Wallace Plt Count MPV Immature Gran % (Auto) Neut % (Auto) Lymph % (Auto) [place] % (Auto) Eos % (Auto) Baso % (Auto) Neut # (Auto) Lymph # (Auto) [place] # (Auto) Eos # (Auto) Baso # (Auto) Immature Gran # (Auto) Peripher Smr Path Cons PT INR APTT PTT Ratio D-Dimer Sodium Potassium Chloride Carbon Dioxide Anion Gap BUN Creatinine Est Cr Clr Drug Dosing Est GFR ( Amer) Est GFR (Non-Af Amer) BUN/Creatinine Ratio Glucose Osmolality Lactate Calcium Magnesium Total Bilirubin AST ALT Alkaline Phosphatase Troponin I NT-Pro-B Natriuret Pep Total Protein Albumin Globulin Albumin/Globulin Ratio Procalcitonin TSH Urine Color Yellow Urine Appearance Clear Urine pH 6.5 Ur Specific [place] 1.009 Urine Protein Negative Urine Glucose (UA) Negative Urine Ketones Trace H Urine Blood Negative Urine Nitrite Negative Urine Bilirubin Negative Urine Urobilinogen Negative Ur Leukocyte Esterase Negative Urine Osmolality Ur Random Sodium 39 Anaplasma Smear See Comment A. phagocytophilum DNA Lyme Disease IgG Ab Lyme Disease IgM Ab SARS-CoV-2 (PCR) 08/30/21 08/30/21 08/30/21 11:52 12:07 12:07 WBC RBC Hgb Hct MCV MCH MCHC RDW Std Deviation RDW Coeff of Wallace Plt Count MPV Immature Gran % (Auto) Neut % (Auto) Lymph % (Auto) [place] % (Auto) Eos % (Auto) Baso % (Auto) Neut # (Auto) Lymph # (Auto) [place] # (Auto) Eos # (Auto) Baso # (Auto) Immature Gran # (Auto) Peripher Smr Path Cons PT INR APTT PTT Ratio D-Dimer Sodium Potassium 4.0 Chloride Carbon Dioxide Anion Gap BUN Creatinine Est Cr Clr Drug Dosing Est GFR ( Amer) Est GFR (Non-Af Amer) BUN/Creatinine Ratio Glucose Osmolality 269 L Lactate Calcium Magnesium 2.6 H Total Bilirubin AST 27 ALT Alkaline Phosphatase Troponin I NT-Pro-B Natriuret Pep 862 Total Protein Albumin Globulin Albumin/Globulin Ratio Procalcitonin TSH 1.070 Urine Color Urine Appearance Urine pH Ur Specific [place] Urine Protein Urine Glucose (UA) Urine Ketones Urine Blood Urine Nitrite Urine Bilirubin Urine Urobilinogen Ur Leukocyte Esterase Urine Osmolality 266 L Ur Random Sodium Anaplasma Smear A. phagocytophilum DNA Lyme Disease IgG Ab Lyme Disease IgM Ab SARS-CoV-2 (PCR) 08/30/21 08/30/21 08/30/21 12:07 12:17 13:16 WBC RBC Hgb Hct MCV MCH MCHC RDW Std Deviation RDW Coeff of Wallace Plt Count MPV Immature Gran % (Auto) Neut % (Auto) Lymph % (Auto) [place] % (Auto) Eos % (Auto) Baso % (Auto) Neut # (Auto) Lymph # (Auto) [place] # (Auto) Eos # (Auto) Baso # (Auto) Immature Gran # (Auto) Peripher Smr Path Cons PT INR APTT PTT Ratio D-Dimer Sodium Potassium Chloride Carbon Dioxide Anion Gap BUN Creatinine Est Cr Clr Drug Dosing Est GFR ( Amer) Est GFR (Non-Af Amer) BUN/Creatinine Ratio Glucose Osmolality Lactate 1.0 Calcium Magnesium Total Bilirubin AST ALT Alkaline Phosphatase Troponin I NT-Pro-B Natriuret Pep Total Protein Albumin Globulin Albumin/Globulin Ratio Procalcitonin 0.10 TSH Urine Color Urine Appearance Urine pH Ur Specific [place] Urine Protein Urine Glucose (UA) Urine Ketones Urine Blood Urine Nitrite Urine Bilirubin Urine Urobilinogen Ur Leukocyte Esterase Urine Osmolality Ur Random Sodium Anaplasma Smear A. phagocytophilum DNA Lyme Disease IgG Ab Negative Lyme Disease IgM Ab Negative SARS-CoV-2 (PCR) NEGATIVE 08/30/21 08/30/21 08/31/21 20:33 21:46 04:51 WBC 8.40 RBC 4.28 Hgb 12.6 Hct 37.1 MCV 86.7 MCH 29.4 MCHC 34.0 RDW Std Deviation 43.4 RDW Coeff of Wallace 13.8 Plt Count 346 MPV 9.1 Immature Gran % (Auto) Neut % (Auto) Lymph % (Auto) [place] % (Auto) Eos % (Auto) Baso % (Auto) Neut # (Auto) Lymph # (Auto) [place] # (Auto) Eos # (Auto) Baso # (Auto) Immature Gran # (Auto) Peripher Smr Path Cons PT INR APTT 38.7 H 44.1 H PTT Ratio 1.5 1.7 D-Dimer Sodium Potassium Chloride Carbon Dioxide Anion Gap BUN Creatinine Est Cr Clr Drug Dosing Est GFR ( Amer) Est GFR (Non-Af Amer) BUN/Creatinine Ratio Glucose Osmolality Lactate Calcium Magnesium Total Bilirubin AST ALT Alkaline Phosphatase Troponin I NT-Pro-B Natriuret Pep Total Protein Albumin Globulin Albumin/Globulin Ratio Procalcitonin TSH Urine Color Urine Appearance Urine pH Ur Specific [place] Urine Protein Urine Glucose (UA) Urine Ketones Urine Blood Urine Nitrite Urine Bilirubin Urine Urobilinogen Ur Leukocyte Esterase Urine Osmolality Ur Random Sodium Anaplasma Smear A. phagocytophilum DNA Lyme Disease IgG Ab Lyme Disease IgM Ab SARS-CoV-2 (PCR) 08/31/21 08/31/21 04:51 04:51 WBC RBC Hgb Hct MCV MCH MCHC RDW Std Deviation RDW Coeff of Wallace Plt Count MPV Immature Gran % (Auto) Neut % (Auto) Lymph % (Auto) [place] % (Auto) Eos % (Auto) Baso % (Auto) Neut # (Auto) Lymph # (Auto) [place] # (Auto) Eos # (Auto) Baso # (Auto) Immature Gran # (Auto) Peripher Smr Path Cons PT INR APTT 51.4 H* PTT Ratio 2.0 D-Dimer Sodium 131 L Potassium 4.0 Chloride 98 Carbon Dioxide 28 Anion Gap 5.0 BUN 8 Creatinine 0.42 L Est Cr Clr Drug Dosing 104.7 Est GFR ( Amer) 116.2 Est GFR (Non-Af Amer) 100.3 BUN/Creatinine Ratio 19.1 Glucose 115 H Osmolality Lactate Calcium 8.9 Magnesium 2.1 Total Bilirubin AST ALT Alkaline Phosphatase Troponin I NT-Pro-B Natriuret Pep Total Protein Albumin Globulin Albumin/Globulin Ratio Procalcitonin TSH Urine Color Urine Appearance Urine pH Ur Specific [place] Urine Protein Urine Glucose (UA) Urine Ketones Urine Blood Urine Nitrite Urine Bilirubin Urine Urobilinogen Ur Leukocyte Esterase Urine Osmolality Ur Random Sodium Anaplasma Smear A. phagocytophilum DNA Lyme Disease IgG Ab Lyme Disease IgM Ab SARS-CoV-2 (PCR) Diagnostic Findings EKG on presentation revealed atrial flutter with variable AV block, ventricular rate 94 bpm. Peaked T waves noted laterally. Nonspecific ST abnormality. EKG from August 30, 2021 at 11:26:18 reveals atrial flutter with variable AV block, ventricular rate 96 bpm. EKG on August 31, 2021 at 05:41:54 revealed atrial flutter with 2-1 conduction, ventricular rate of 129 bpm. Review of telemetry reveals atrial fibrillation/flutter ranging from 80 bpm to 130 bpm. No bradycardia or pauses. Duration unknown. (1) Pneumonia Laterality: bilateral Lung location: lower lobe of lung Pneumonia type: due to unspecified organism Qualified Code(s): J18.9 - Pneumonia, unspecified organism
[2021-08-31] MEDS: HEPARIN SODIUM/DEXTROSE 25,000 UNITS/500 ML BAG IV SCH (14:14)
[2021-08-31] MEDS: cefTRIAXone SODIUM 2,000 MG in DEXTROSE 5% 50 ML IV SCH (14:16)
[2021-08-31] MEDS: AZITHROMYCIN 500 MG in DEXTROSE 5% 250 ML IV SCH (15:25)
--- NOTE | 2021-08-31 19:29 | Hospitalist Progress Note ---
Date of Service August 31, 2021 Assessment & Plan (1) Atrial fibrillation/flutter: (2) Pneumonia: Plan: 75-year-old female with PMH of atrial fibrillation not on anticoagulation (was earlier on coumadin, stopped by doctor per Pt) and hypertension who presents 08/30 with malaise, cough and palpitations over the past few weeks [employer]. She is being managed for the following: #. CAP: Admitting CXR- bibasilar pna w/ b/l small pl. Eff. Continue with 08/31 Zithro + Rocephin; continue to monitor pl. Eff. clinically and as needed radiologically Patient reporting improvement in her cough Will need repeat chest x-ray in 4 to 6 weeks to document resolution of pneumo nahed. Continue with supportive management/nebulization. #. Afib/flutter: History of A. fib on Coumadin, discontinued Coumadin many years ago per patient On heparin drip, cardiology evaluated the patient: Titrating her metoprolol dose for rate control, agrees with heparin drip, plan to transition to warfarin with a goal of 2.0-3.0. 08/31 echo: Normal LV systolic function with EF of 60 to 65% Continue telemetry monitoring. As needed meds for rate control. #. LLE cellulitis: on ATB per PNA, improving #. Hyponatremia: TSH nl, improving; increase protein intake; monitor daily. Delete that #. HTN: Continue with home meds, use as needed meds when appropriate. Full code On heparin drip Admission and Anticipated Discharge Date Admission Date: August 30, 2021 Subjective Patient was lying in bed, on room air, NAD, patient looking better. Patient reports improvement in her cough. Patient reports that she is able to deep breathe without coughing today. Patient denies any headache/chills/chest pain/palpitation/other review of symptoms. Physical Exam Physical Exam: GENERAL: Alert and oriented x3. NAD, on RA. HEENT: No pallor, no icterus. Pupils equal, round and reactive to light. Oral mucosa moist. NECK: No JVD, no neck masses. HEART: S1 and S2 heard. Regular rate and rhythm. No murmur, no gallop. RESPIRATORY SYSTEM: Normal AP diameter. No accessory muscle use. No wheezing, no crackles. Increased breath sounds bibasal, no cough noted at bedside today. ABDOMEN: Soft, bowel sounds present, nontender, no distention. CENTRAL NERVOUS SYSTEM: Alert and oriented x3. No facial droop. Speech is clear. Obeys simple commands. Moves extremities. EXTREMITIES: No edema, no erythema elsewhere seen. LLE anterior to ankle - 5x7 cm erythema---> improving, no tenderness Results & Data Results & Data ([facility]) Vital Signs (Past 12 Hours) Vital Signs Temp Pulse Pulse Resp BP Pulse Ox 08/31/21 16:23 37.0 C 123 H 17 145/78 H 92 08/31/21 11:15 37.3 C 89 18 144/72 H 92 08/31/21 08:00 106 H 08/31/21 07:36 36.7 C 129 H 18 144/77 H 91 (1) Pneumonia Laterality: bilateral Lung location: lower lobe of lung Pneumonia type: due to unspecified organism Qualified Code(s): J18.9 - Pneumonia, unspecified organism
[2021-08-31] MEDS: METOPROLOL TARTRATE 50 MG TAB PO SCH (20:01)
[2021-09-01] MEDS: LEVALBUTEROL HCL 0.63 MG/3 ML NEB NEB SCH ×4 (00:30→19:43)
--- NOTE | 2021-09-01 06:21 | Electrocardiogram Report ---
Test Reason : Blood Pressure : / mmHG Vent. Rate : 094 BPM Atrial Rate : 242 BPM P-R Int : 000 ms QRS Dur : 092 ms QT Int : 362 ms P-R-T Axes : 000 086 063 degrees QTc Int : 452 ms Atrial flutter with variable A-V block Nonspecific ST abnormality Abnormal ECG No previous ECGs available Confirmed by Alfonso Koenig ([id number]) on 09/01/2021 6:21:20 AM Referred By: Confirmed By:Alfonso Koenig
[2021-09-01 06:25] LABS: Hematocrit (blood only) 38.8 % (37-47); Hemoglobin 13.2 g/dL (12.0-16.0); Mean Corpuscular Hemoglobin 29.7 pg (25-34); Mean Corpuscular Volume 87.2 fL (80-100); Mean Platelet Volume 9.1 fL (7.4-10.4); Platelet Count 374 K/uL (130-400); RDW Coefficient of Variation 13.9 % (11.5-14.5); RDW Standard Deviation 44.8 fL (36.4-46.3); Red Blood Count 4.45 M/uL (4.2-5.4)
--- NOTE | 2021-09-01 06:31 | Electrocardiogram Report ---
Test Reason : Blood Pressure : / mmHG Vent. Rate : 096 BPM Atrial Rate : 242 BPM P-R Int : 000 ms QRS Dur : 090 ms QT Int : 360 ms P-R-T Axes : 092 082 065 degrees QTc Int : 455 ms Atrial flutter with variable A-V block Nonspecific ST abnormality Abnormal ECG When compared with ECG of 30-AUG-2021 09:51, No significant change Confirmed by Alfonso Koenig ([id number]) on 09/01/2021 6:30:55 AM Referred By: Confirmed By:Alfonso Koenig
[2021-09-01 06:34] LABS: Partial Thromboplastin Ratio 2.2
[2021-09-01 06:38] LABS: Partial Thromboplastin Time 57.1 Seconds (21.0-31.0)
[2021-09-01 06:52] LABS: BUN Creatinine Ratio 23.6 (10-20); Calcium 9.3 mg/dl (8.5-10.1); Creatinine Clr Calc Pharmacy 114.5 ml/min; Est GFR (African American) 121.2 ml/min; Est GFR (Non-African American) 104.5 ml/min; Magnesium 2.1 mg/dl (1.8-2.4); Potassium 4.2 mmol/L (3.5-5.1)
[2021-09-01 06:53] LABS: Phosphorus 3.4 mg/dl (2.5-4.9)
--- NOTE | 2021-09-01 07:05 | Electrocardiogram Report ---
Test Reason : Blood Pressure : / mmHG Vent. Rate : 129 BPM Atrial Rate : 258 BPM P-R Int : 000 ms QRS Dur : 090 ms QT Int : 280 ms P-R-T Axes : 091 090 -26 degrees QTc Int : 410 ms Suspect arm lead reversal, interpretation assumes no reversal Atrial flutter with 2:1 A-V conduction Rightward axis Abnormal ECG When compared with ECG of 30-AUG-2021 11:26, Criteria for Anterior infarct are no longer Present Confirmed by Alfonso Koenig ([id number]) on 09/01/2021 7:04:59 AM Referred By: REFERRED SELF Confirmed By:Alfonso Koenig
[2021-09-01] MEDS: METOPROLOL TARTRATE 50 MG TAB PO SCH ×3 (09:16→20:25)
--- NOTE | 2021-09-01 09:37 | Cardiology Progress Note ---
Date of Service September 01, 2021 Assessment & Plan (1) Pneumonia: (2) Atrial fibrillation/flutter: (3) Acute hyponatremia: (4) Hypertension: (5) Abnormal chest CT: Plan: 1. Left upper lobe pneumonia. As per Hospitalist. 2. Hyponatremia. Improved. As per hospitalist 3. Cellulitis. Improved. As per hospitalist. 4. Inferior right hilar mass with postobstructive atelectasis/collapse involving the right lower lobe, subcarinal and additional right hilar adenopathy. ~50 pound weight loss reported. Recommend further evaluation as per Hospitalist. 5. Symptomatic atrial fibrillation/flutter with a rapid ventricular response. Duration unknown. Classification (i.e. paroxysmal, persistent, long-standing, permanent) unknown. [id number] Score is at least 5 points given her age of 75 or greater, female, hypertension history, and observed aortic plaque. Recommend further titration of metoprolol for additional heart rate as well as blood pressure control. Continue heparin. Hold off on starting Coumadin anticoagulation for now (? further evaluation/intervention of the above). 6. Hypertension. See above. Admission and Anticipated Discharge Date Admission Date: August 30, 2021 Supervising Physician Co-Signing Physician Notes Patient seen and examined with Panda Demarco PA-C. Agree with findings and assessment as above. Symptomatic atrial fibrillation/flutter with rapid ventricular response in the setting of hyponatremia, cellulitis and pneumonia. Metoprolol dose should be titrated for heart rates less than 90 and heparin will be continued as a bridge until her INR is therapeutic in the range of 2-3. Subjective Patient seen and evaluated. Chart, medications, and telemetry reviewed. Required supplemental oxygen last night and this morning. Coughing fit this morning. + Palpitations. Breathing OK. No pain. No chest pain. No orthopnea, PND, or lower extremity peripheral edema. No dizziness, near syncope, or syncope. August 31, 2021 TTE Interpretation Summary ([facility], Dr. Lanier): No previoius studies available for comparison. Normal LV chamber size and wall thickness. Normal LV systolic function, EF 60-65%. No segmental LV WMA's. Mild aortic valve sclerosis, without significant aortic valvular stenosis. Mildly thickened mitral valve leaflets with mild mitral regurgitation. The interatrial septum bows towards the right atrium, consistent with elevated left atrial pressure. Telemetry: Atrial fibrillation/flutter ranging from 80 bpm to 130 bpm. Physical Exam Physical Exam: General: A&Ox3. NAD. HENT: Normocephalic. Atraumatic. Eyes: PER. Conjunctiva pink, sclera clear. Neck: No carotid bruits. No JVD. No HJR. Heart: Irregular around 110 bpm. No murmur. PMI is nondisplaced. Lungs: Diminished. Decreased. Absent breath sounds at the bases. Left sided rhonchi. No wheeze. Abdomen: +BS. Soft. Nontender. No masses or organomegaly. Extremities: Varicosities left lower extremity. Erythema has improved compared to yesterday. No clubbing. No cyanosis. Pulses: radial=2/4, posterior tibial=2/4. Limited neurological examination is without focal deficit. Results & Data ([facility]) Vital Signs (Past 12 Hours) Vital Signs Temp Pulse Pulse Resp BP BP Pulse Ox 09/01/21 06:52 36.3 C L 117 H 18 143/84 H 95 09/01/21 04:54 124 H 154/90 H 09/01/21 03:19 37.0 C 120 H 18 154/90 H 94 08/31/21 23:25 82 08/31/21 22:51 37.2 C 111 H 16 144/76 H 86 L Laboratory Results Laboratory Results - last 24 hr 09/01/21 09/01/21 09/01/21 05:51 05:51 05:51 WBC 6.50 RBC 4.45 Hgb 13.2 Hct 38.8 MCV 87.2 MCH 29.7 MCHC 34.0 RDW Std Deviation 44.8 RDW Coeff of Wallace 13.9 Plt Count 374 MPV 9.1 APTT 57.1 H* PTT Ratio 2.2 Sodium 135 L Potassium 4.2 Chloride 102 Carbon Dioxide 25 Anion Gap 8.0 BUN 9 Creatinine 0.37 L Est Cr Clr Drug Dosing 114.5 Est GFR ( Amer) 121.2 Est GFR (Non-Af Amer) 104.5 BUN/Creatinine Ratio 23.6 H Glucose 114 H Calcium 9.3 Phosphorus 3.4 Magnesium 2.1 (1) Pneumonia Laterality: bilateral Lung location: lower lobe of lung Pneumonia type: due to unspecified organism Qualified Code(s): J18.9 - Pneumonia, unspecified organism
--- NOTE | 2021-09-01 10:47 | XRay Report ---
XR chest 2V PA/lateral CLINICAL HISTORY: pneumonia. abnormal chest ct. requiring oxygen. COMPARISON STUDY: Previous chest radiograph from 08/30/2021 and CTA chest from 08/30/2021 TECHNIQUE: 2 views of the chest FINDINGS: Frontal and lateral radiographs of the chest demonstrate the cardiomediastinal silhouette to be withi n normal limits. Compared to the previous examinations, prominent alveolar opacities again seen at th e right lung base which represented collapsed lung on CT. Additional confluent alveolar opacity is ag ain seen at left lung base as well which represented pneumonia on CT. There is no evidence for effusi on bilaterally. There is no evidence for vascular congestion. There is no acute osseous pathology. IMPRESSION: Compared to the previous examination, there is no significant interval change. Right lowe r lobe alveolar opacity is again characteristic of collapsed lung again seen. Left lower lobe alveola r opacity characteristic of pneumonia is also again seen. These findings were well delineated on the patient's CT. ACT 112: Negative or not required by law. Electronically signed by: Alden George M.D. 09/01/2021 10:45 AM
[2021-09-01] MEDS: HEPARIN SODIUM/DEXTROSE 25,000 UNITS/500 ML BAG IV SCH (12:15)
[2021-09-01] MEDS: cefTRIAXone SODIUM 2,000 MG in DEXTROSE 5% 50 ML IV SCH (15:35)
[2021-09-01] MEDS: AZITHROMYCIN 500 MG in DEXTROSE 5% 250 ML IV SCH (16:23)
--- NOTE | 2021-09-01 18:18 | Hospitalist Progress Note ---
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 Eff. Continue with 08/31 Zithro + Rocephin; continue to monitor pl. Eff. clinically and as needed radiologically Patient reporting improvement in her cough Will need repeat chest x-ray in 4 to 6 weeks to document resolution of pneumonia. Continue with supportive management/nebulization. On chest CT, there is significant adenopathy, also possible mass Discussed with pulmonary medicine, given probable mass, there is postobstructive pneumonia Recommend MRI brain with contrast, and outpatient PET scan Outpatient EBUS in a week or so Patient is Taoism and moved from [facility] -we will need to establish care here, and will need to discuss financial feasibility of all the testing Afib/flutter: History of A. fib on Coumadin, discontinued Coumadin many years ago per patient On heparin drip, cardiology evaluated the patient: Titrating her metoprolol dose for rate control, agrees with heparin drip, plan to transition to warfarin with a goal of 2.0-3.0. Start Coumadin today (09/01) 08/31 echo: Normal LV systolic function with EF of 60 to 65% Continue telemetry monitoring. As needed meds for rate control. #. LLE cellulitis: on ATB per PNA, improving #. Hyponatremia: TSH nl, improving; increase protein intake; monitor daily. #. HTN: Continue with home meds, use as needed meds when appropriate. Full code On heparin drip Admission and Anticipated Discharge Date Admission Date: August 30, 2021 Subjective Patient seen in follow-up of pneumonia, A. fib/a flutter, with RVR, lung mass/adenopathy Currently patient is lying in bed, in no acute distress, breathing comfortably on room air Daughter at the bedside She is on IV heparin Currently reports somewhat improvement in cough, denies chest pain shortness of breath Denies fevers, chills, abdominal pain, nausea vomiting Reports slightly better Discussed starting Coumadin for anticoagulation Also discussed lung mass, and further follow-up and work-up Lung adenopathy/lung mass discussed with pulmonary medicine, recommend EBUS as outpatient, also recommend brain MRI, will discuss with CM, family given patient is Taoism/financial feasibility Patient is from [facility], now plans to reside here. Will need to establish care. Review of Systems Review of Systems: All systems reviewed & are unremarkable except as noted in Subjective Physical Exam Physical Exam: GENERAL: Alert and oriented x3. NAD, on RA. HEENT: NC/AT. EOMI/ PERRL. No pallor, no icterus.Oral mucosa moist. NECK: No JVD, no neck masses. HEART: S1 and S2 heard. Regular rate and rhythm. No murmur, no gallop. RESPIRATORY: Normal AP diameter. No accessory muscle use. No wheezing, no crackles. some rhonchi ABDOMEN: Soft, bowel sounds present, nontender, no distention. NEURO: Alert and oriented x3. No facial droop. Speech is clear. Moves extremities. EXTREMITIES: No edema, no erythema elsewhere seen. LLE anterior to ankle - 5x7 cm erythema---> improving, no tenderness Results & Data Results & Data ([facility]) Vital Signs (Past 12 Hours) Vital Signs Temp Pulse Pulse Resp BP Pulse Ox 09/01/21 16:08 36.8 C 87 17 137/69 94 09/01/21 13:33 61 22 94 09/01/21 11:42 37.0 C 62 17 135/75 95 09/01/21 06:52 36.3 C L 117 H 18 143/84 H 95 Laboratory Results 09/01/21 09/01/21 09/01/21 Range/Units 05:51 05:51 05:51 WBC 6.50 (4.8-10.8) K/uL RBC 4.45 (4.2-5.4) M/uL Hgb 13.2 (12.0-16.0) g/dL Hct 38.8 (37-47) % MCV 87.2 (80-100) fL MCH 29.7 (25-34) pg MCHC 34.0 (32-36) g/dL RDW Std Deviation 44.8 (36.4-46.3) fL RDW Coeff of Wallace 13.9 (11.5-14.5) % Plt Count 374 (130-400) K/uL MPV 9.1 (7.4-10.4) fL APTT 57.1 H* (21.0-31.0) Seconds PTT Ratio 2.2 Sodium 135 L (136-145) mmol/L Potassium 4.2 (3.5-5.1) mmol/L Chloride 102 (98-107) mmol/L Carbon Dioxide 25 (21-32) mmol/L Anion Gap 8.0 (3-11) BUN 9 (7-18) mg/dl Creatinine 0.37 L (0.6-1.2) mg/dl Est Cr Clr Drug Dosing 114.5 ml/min Est GFR ( Amer) 121.2 ml/min Est GFR (Non-Af Amer) 104.5 ml/min BUN/Creatinine Ratio 23.6 H (10-20) Glucose 114 H (70-99) mg/dl Calcium 9.3 (8.5-10.1) mg/dl Phosphorus 3.4 (2.5-4.9) mg/dl Magnesium 2.1 (1.8-2.4) mg/dl Medications Administered Current Inpatient Medications Acetaminophen (Acetaminophen 325 Mg Tab) 650 mg PO Q4H PRN PRN Reason: Pain or Fever Stop: 09/29/21 17:10 Heparin Sodium/Dextrose (Heparin Sodium/Dextrose) 25,000 units in 500 mls @ 23 mls/hr IV .[id number] [facility]; Protocol Stop: 09/29/21 14:14 Last Admin: 09/01/21 12:15 Dose: 1,150 units/hr, 23 mls/hr Documented by: Azithromycin 500 mg/ Dextrose 255 mls @ 125 mls/hr IV Q24H [facility]; Protocol Stop: 09/04/21 13:59 Last Admin: 09/01/21 16:23 Dose: 120 mls/hr Documented by: Ceftriaxone Sodium 2,000 mg/ (Dextrose) 70 mls @ 100 mls/hr IV Q24H [facility]; Protocol Stop: 09/05/21 14:41 Last Infusion: 09/01/21 16:24 Dose: Infused Documented by: Levalbuterol HCl (Levalbuterol Hcl 0.63 Mg/3 Ml Neb) 0.63 mg NEB Q6R [facility] Stop: 09/29/21 18:59 Last Admin: 09/01/21 13:31 Dose: 0.63 mg Documented by: Metoprolol Tartrate (Metoprolol Tartrate 1 Mg/Ml Vial) 2.5 mg IV Q6 PRN PRN Reason: HR >110 Stop: 09/29/21 17:10 Last Admin: 09/01/21 04:54 Dose: 2.5 mg Documented by: Metoprolol Tartrate (Metoprolol Tartrate 50 Mg Tab) 50 mg PO TID [facility] Stop: 10/01/21 13:59 Last Admin: 09/01/21 15:40 Dose: 50 mg Documented by: Polyethylene Glycol (Polyethylene (Miralax) 17 Gm Pack) 17 gm PO DAILY PRN PRN Reason: Constipation Stop: 09/29/21 17:10 (1) Pneumonia Laterality: bilateral Lung location: lower lobe of lung Pneumonia type: due to unspecified organism Qualified Code(s): J18.9 - Pneumonia, unspecified organism
[2021-09-01 19:31] LABS: INR 1.1 (0.9-1.1); Prothrombin Time 11.4 Seconds (9.0-12.0)
[2021-09-01] MEDS: WARFARIN SOD 5 MG TAB PO SCH (19:56)
[2021-09-01] MEDS: guaiFENesin 600 MG TABCR PO SCH (20:25)
[2021-09-02] MEDS: LEVALBUTEROL HCL 0.63 MG/3 ML NEB NEB SCH ×4 (01:04→19:46)
[2021-09-02 07:14] LABS: Partial Thromboplastin Ratio 2.4
[2021-09-02 07:25] LABS: Partial Thromboplastin Time 62.9 Seconds (21.0-31.0)
[2021-09-02] MEDS: METOPROLOL TARTRATE 50 MG TAB PO SCH ×3 (07:34→20:31)
[2021-09-02] MEDS: guaiFENesin 600 MG TABCR PO SCH ×2 (07:34→20:31)
[2021-09-02] MEDS: HEPARIN SODIUM/DEXTROSE 25,000 UNITS/500 ML BAG IV SCH (09:05)
--- NOTE | 2021-09-02 09:12 | Hospitalist Progress Note ---
Date of Service September 02, 2021 Assessment & Plan (1) Atrial fibrillation/flutter: (2) Pneumonia: Plan: 75 yo F w. 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 Eff. Continue with 08/31 Zithro + Rocephin; continue to monitor pl. Eff. clinically and as needed radiologically Patient reporting improvement in her cough Guaifenesin, flutter valve Will need repeat chest x-ray in 4 to 6 weeks to document resolution of pneumonia. Continue with supportive management/nebulization. On chest CT, there is significant adenopathy, also possible mass (concern for poss. malignancy, such as small cell lung ca) Discussed with pulmonary medicine, given probable mass, there is postobstructive pneumonia Recommend MRI brain with contrast, and outpatient PET scan Outpatient EBUS in a week or so Patient is [place] and moved from [facility] -we will need to establish care here, and will need to discuss financial feasibility of all the testing Pt's family aware of recommended tests- will discuss at home and will let me know tmrw Afib/flutter: History of A. fib on Coumadin, discontinued Coumadin many years ago per patient On heparin drip, cardiology evaluated the patient: Titrating her metoprolol dose for rate control, however pt still tachycardic - starting amiodarone Cont. IV heparin drip, transition to warfarin with a goal of 2.0-3.0. Started Coumadin today (09/01) 08/31 echo: Normal LV systolic function with EF of 60 to 65% Continue telemetry monitoring. As needed meds for rate control. #. LLE cellulitis: on ATB per PNA, improving #. Hyponatremia: TSH nl, improving; increase protein intake; monitor daily. #. HTN: Continue with home meds, use as needed meds when appropriate. Full code On heparin drip Admission and Anticipated Discharge Date Admission Date: August 30, 2021 Subjective Patient seen in follow-up of pneumonia, A. fib/a flutter, with RVR, lung mass/adenopathy Currently patient is lying in bed, in no acute distress, breathing comfortably on room air Daughter at the bedside She is on IV heparin Currently reports somewhat improvement in cough, denies chest pain shortness of breath Denies fevers, chills, abdominal pain, nausea vomiting Reports feeling slightly better Tachycardic this AM - started on amiodarone by cardiology Lung adenopathy/lung mass discussed with pulmonary medicine, recommend MRI brain, EBUS and PET scan as outpatient - this AM pt tells me that she does not want MRI or any other test. Met w/ pt's daughter this PM and daughter tells me that they will discuss this w/ family and she will let me know tomorrow. Patient is from [facility], now plans to reside here. Will need to establish care. Pt is from [facility]. Review of Systems Review of Systems: All systems reviewed & are unremarkable except as noted in Subjective Physical Exam Physical Exam: GENERAL: Alert and oriented x3. NAD, on RA. HEENT: NC/AT. EOMI/ PERRL. No pallor, no icterus.Oral mucosa moist. NECK: No JVD, no neck masses. HEART: irregular, No murmur, no gallop. RESPIRATORY: Normal AP diameter. No accessory muscle use. No wheezing, no crackles. some rhonchi ABDOMEN: Soft, bowel sounds present, nontender, no distention. NEURO: Alert and oriented x3. No facial droop. Speech is clear. Moves extremities. EXTREMITIES: No edema, no erythema elsewhere seen. LLE anterior to ankle - 5x7 cm erythema---> improving, no tenderness Results & Data Results & Data ([facility]) Vital Signs (Past 12 Hours) Vital Signs Temp Pulse Pulse Pulse Resp BP Pulse Ox 09/02/21 09:08 87 09/02/21 08:00 126 H 09/02/21 07:00 36.9 C 123 H 18 155/89 H 92 09/02/21 06:42 126 H 20 93 09/02/21 03:53 37.1 C 107 H 16 118/74 93 09/01/21 23:35 81 09/01/21 23:12 36.3 C L 94 H 16 149/80 H 90 Laboratory Results 09/02/21 09/02/21 09/02/21 Range/Units 09:19 09:19 06:28 WBC 6.10 (4.8-10.8) K/uL RBC 4.26 (4.2-5.4) M/uL Hgb 12.6 (12.0-16.0) g/dL Hct 37.0 (37-47) % MCV 86.9 (80-100) fL MCH 29.6 (25-34) pg MCHC 34.1 (32-36) g/dL RDW Std Deviation 43.8 (36.4-46.3) fL RDW Coeff of Wallace 13.9 (11.5-14.5) % Plt Count 361 (130-400) K/uL MPV 8.9 (7.4-10.4) fL PT (9.0-12.0) Seconds INR (0.9-1.1) APTT 62.9 H* (21.0-31.0) Seconds PTT Ratio 2.4 Sodium 129 L (136-145) mmol/L Potassium 3.8 (3.5-5.1) mmol/L Chloride 96 L (98-107) mmol/L Carbon Dioxide 30 (21-32) mmol/L Anion Gap 3.0 (3-11) BUN 12 (7-18) mg/dl Creatinine 0.53 L (0.6-1.2) mg/dl Est Cr Clr Drug Dosing 79.1 ml/min Est GFR ( Amer) 107.6 ml/min Est GFR (Non-Af Amer) 92.9 ml/min BUN/Creatinine Ratio 22.4 H (10-20) Glucose 154 H (70-99) mg/dl Calcium 9.4 (8.5-10.1) mg/dl Phosphorus 3.1 (2.5-4.9) mg/dl Magnesium 2.0 (1.8-2.4) mg/dl 09/01/21 Range/Units 18:54 WBC (4.8-10.8) K/uL RBC (4.2-5.4) M/uL Hgb (12.0-16.0) g/dL Hct (37-47) % MCV (80-100) fL MCH (25-34) pg MCHC (32-36) g/dL RDW Std Deviation (36.4-46.3) fL RDW Coeff of Wallace (11.5-14.5) % Plt Count (130-400) K/uL MPV (7.4-10.4) fL PT 11.4 (9.0-12.0) Seconds INR 1.1 (0.9-1.1) APTT (21.0-31.0) Seconds PTT Ratio Sodium (136-145) mmol/L Potassium (3.5-5.1) mmol/L Chloride (98-107) mmol/L Carbon Dioxide (21-32) mmol/L Anion Gap (3-11) BUN (7-18) mg/dl Creatinine (0.6-1.2) mg/dl Est Cr Clr Drug Dosing ml/min Est GFR ( Amer) ml/min Est GFR (Non-Af Amer) ml/min BUN/Creatinine Ratio (10-20) Glucose (70-99) mg/dl Calcium (8.5-10.1) mg/dl Phosphorus (2.5-4.9) mg/dl Magnesium (1.8-2.4) mg/dl Medications Administered Current Inpatient Medications Acetaminophen (Acetaminophen 325 Mg Tab) 650 mg PO Q4H PRN PRN Reason: Pain or Fever Stop: 09/29/21 17:10 Guaifenesin (Guaifenesin 600 Mg Tabcr) 600 mg PO Q12 [facility] Stop: 10/01/21 20:59 Last Admin: 09/02/21 07:34 Dose: 600 mg Documented by: Heparin Sodium/Dextrose (Heparin Sodium/Dextrose) 25,000 units in 500 mls @ 23 mls/hr IV .[id number] [facility]; Protocol Stop: 09/29/21 14:14 Last Admin: 09/02/21 09:05 Dose: 1,150 units/hr, 23 mls/hr Documented by: Azithromycin 500 mg/ Dextrose 255 mls @ 125 mls/hr IV Q24H [facility]; Protocol Stop: 09/04/21 13:59 Last Infusion: 09/01/21 18:50 Dose: Infused Documented by: Ceftriaxone Sodium 2,000 mg/ (Dextrose) 70 mls @ 100 mls/hr IV Q24H [facility]; Protocol Stop: 09/05/21 14:41 Last Infusion: 09/01/21 16:24 Dose: Infused Documented by: Levalbuterol HCl (Levalbuterol Hcl 0.63 Mg/3 Ml Neb) 0.63 mg NEB Q6R [facility] Stop: 09/29/21 18:59 Last Admin: 09/02/21 06:42 Dose: Not Given Documented by: Metoprolol Tartrate (Metoprolol Tartrate 1 Mg/Ml Vial) 2.5 mg IV Q6 PRN PRN Reason: HR >110 Stop: 09/29/21 17:10 Last Admin: 09/01/21 04:54 Dose: 2.5 mg Documented by: Metoprolol Tartrate (Metoprolol Tartrate 50 Mg Tab) 50 mg PO TID [facility] Stop: 10/01/21 13:59 Last Admin: 09/02/21 07:34 Dose: 50 mg Documented by: Polyethylene Glycol (Polyethylene (Miralax) 17 Gm Pack) 17 gm PO DAILY PRN PRN Reason: Constipation Stop: 09/29/21 17:10 Warfarin Sodium (Warfarin Sod 5 Mg Tab) 5 mg PO DAILY@1600 [facility] Stop: 10/01/21 18:19 Last Admin: 09/01/21 19:56 Dose: 5 mg Documented by: (1) Pneumonia Laterality: bilateral Lung location: lower lobe of lung Pneumonia type: due to unspecified organism Qualified Code(s): J18.9 - Pneumonia, unspecified organism
[2021-09-02 09:39] LABS: Hemoglobin 12.6 g/dL (12.0-16.0); Mean Corpuscular Hemoglobin 29.6 pg (25-34); Mean Corpuscular Hgb Conc 34.1 g/dL (32-36); Mean Corpuscular Volume 86.9 fL (80-100); Mean Platelet Volume 8.9 fL (7.4-10.4); Platelet Count 361 K/uL (130-400); RDW Coefficient of Variation 13.9 % (11.5-14.5); RDW Standard Deviation 43.8 fL (36.4-46.3); Red Blood Count 4.26 M/uL (4.2-5.4)
[2021-09-02 10:03] LABS: BUN Creatinine Ratio 22.4 (10-20); Calcium 9.4 mg/dl (8.5-10.1); Creatinine Clr Calc Pharmacy 79.1 ml/min; Est GFR (African American) 107.6 ml/min; Est GFR (Non-African American) 92.9 ml/min; Phosphorus 3.1 mg/dl (2.5-4.9); Potassium 3.8 mmol/L (3.5-5.1)
--- NOTE | 2021-09-02 12:12 | Cardiology Progress Note ---
Date of Service September 02, 2021 Assessment & Plan (1) Pneumonia: (2) Atrial fibrillation/flutter: (3) Acute hyponatremia: (4) Hypertension: (5) Abnormal chest CT: Plan: The patient's heart rates are not controlled and I think the best way to proceed is to start her on amiodarone which I added today. She was only recently started on warfarin and she should be therapeutic on warfarin before she is discharged. 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 Admission and Anticipated Discharge Date Admission Date: August 30, 2021 Subjective The patient is comfortable eating lunch with no new complaints. Review of Systems Review of Systems: Review of Systems: See HPI for pertinent positives. All other 10 point review of systems are negative. Physical Exam Physical Exam: General: no acute distress and stated age Head: normocephalic, no masses, lesions, tenderness or abnormalities Eyes: conjunctiva are pink and non-injected, sclera clear Neck: supple, no adenopathy, no bruits, normal jugular venous pulse, no hepatojugular reflux Chest: normal shape and normal respiratory effort Lungs: clear to auscultation and percussion Cardiac Exam: - irregular rate & rhythm, no murmurs gallops or rubs - normal S1, normal S2 Pulses: 2(+) throughout Abdomen: abdomen soft, non-tender, no abnormal masses and no hepatosplenomegaly Musculoskeletal: no gait disturbance, no joint inflammation, no deforming arthritis Extremities: no edema and no cyanosis Neuro: grossly normal exam Results & Data ([facility]) Vital Signs (Past 12 Hours) Vital Signs Temp Pulse Pulse Pulse Resp BP Pulse Ox 09/02/21 11:34 37.1 C 81 18 136/71 94 09/02/21 09:08 87 09/02/21 08:00 126 H 09/02/21 07:00 36.9 C 123 H 18 155/89 H 92 09/02/21 06:42 126 H 20 93 09/02/21 03:53 37.1 C 107 H 16 118/74 93 Laboratory Results Laboratory Results - last 24 hr 09/01/21 09/02/21 09/02/21 18:54 06:28 09:19 WBC 6.10 RBC 4.26 Hgb 12.6 Hct 37.0 MCV 86.9 MCH 29.6 MCHC 34.1 RDW Std Deviation 43.8 RDW Coeff of Wallace 13.9 Plt Count 361 MPV 8.9 PT 11.4 INR 1.1 APTT 62.9 H* PTT Ratio 2.4 Sodium Potassium Chloride Carbon Dioxide Anion Gap BUN Creatinine Est Cr Clr Drug Dosing Est GFR ( Amer) Est GFR (Non-Af Amer) BUN/Creatinine Ratio Glucose Calcium Phosphorus Magnesium 09/02/21 09:19 WBC RBC Hgb Hct MCV MCH MCHC RDW Std Deviation RDW Coeff of Wallace Plt Count MPV PT INR APTT PTT Ratio Sodium 129 L Potassium 3.8 Chloride 96 L Carbon Dioxide 30 Anion Gap 3.0 BUN 12 Creatinine 0.53 L Est Cr Clr Drug Dosing 79.1 Est GFR ( Amer) 107.6 Est GFR (Non-Af Amer) 92.9 BUN/Creatinine Ratio 22.4 H Glucose 154 H Calcium 9.4 Phosphorus 3.1 Magnesium 2.0 Diagnostic Findings The patient is in a rapid atrial flutter heart rates of 100 2230 consistently. Medications Administered Current Inpatient Medications Acetaminophen (Acetaminophen 325 Mg Tab) 650 mg PO Q4H PRN PRN Reason: Pain or Fever Stop: 09/29/21 17:10 Amiodarone HCl (Amiodarone 200 Mg Tab) 200 mg PO TIDM [facility] Stop: 10/02/21 16:59 Guaifenesin (Guaifenesin 600 Mg Tabcr) 600 mg PO Q12 [facility] Stop: 10/01/21 20:59 Last Admin: 09/02/21 07:34 Dose: 600 mg Documented by: Heparin Sodium/Dextrose (Heparin Sodium/Dextrose) 25,000 units in 500 mls @ 23 mls/hr IV .[id number] [facility]; Protocol Stop: 09/29/21 14:14 Last Admin: 09/02/21 09:05 Dose: 1,150 units/hr, 23 mls/hr Documented by: Azithromycin 500 mg/ Dextrose 255 mls @ 125 mls/hr IV Q24H [facility]; Protocol Stop: 09/04/21 13:59 Last Infusion: 09/01/21 18:50 Dose: Infused Documented by: Ceftriaxone Sodium 2,000 mg/ (Dextrose) 70 mls @ 100 mls/hr IV Q24H [facility]; Protocol Stop: 09/05/21 14:41 Last Infusion: 09/01/21 16:24 Dose: Infused Documented by: Levalbuterol HCl (Levalbuterol Hcl 0.63 Mg/3 Ml Neb) 0.63 mg NEB Q6R [facility] Stop: 09/29/21 18:59 Last Admin: 09/02/21 06:42 Dose: Not Given Documented by: Metoprolol Tartrate (Metoprolol Tartrate 1 Mg/Ml Vial) 2.5 mg IV Q6 PRN PRN Reason: HR >110 Stop: 09/29/21 17:10 Last Admin: 09/01/21 04:54 Dose: 2.5 mg Documented by: Metoprolol Tartrate (Metoprolol Tartrate 50 Mg Tab) 50 mg PO TID [facility] Stop: 10/01/21 13:59 Last Admin: 09/02/21 07:34 Dose: 50 mg Documented by: Polyethylene Glycol (Polyethylene (Miralax) 17 Gm Pack) 17 gm PO DAILY PRN PRN Reason: Constipation Stop: 09/29/21 17:10 Warfarin Sodium (Warfarin Sod 5 Mg Tab) 5 mg PO DAILY@1600 [facility] Stop: 10/01/21 18:19 Last Admin: 09/01/21 19:56 Dose: 5 mg Documented by: (1) Pneumonia Laterality: bilateral Lung location: lower lobe of lung Pneumonia type: due to unspecified organism Qualified Code(s): J18.9 - Pneumonia, unspecified organism
[2021-09-02 12:32] LABS: INR 1.1 (0.9-1.1); Prothrombin Time 11.4 Seconds (9.0-12.0)
[2021-09-02] MEDS: cefTRIAXone SODIUM 2,000 MG in DEXTROSE 5% 50 ML IV SCH (13:09)
[2021-09-02] MEDS: AZITHROMYCIN 500 MG in DEXTROSE 5% 250 ML IV SCH (13:43)
[2021-09-02] MEDS: WARFARIN SOD 5 MG TAB PO SCH (16:57)
[2021-09-02] MEDS: AMIODARONE 200 MG TAB PO SCH (16:57)
[2021-09-03] MEDS: LEVALBUTEROL HCL 0.63 MG/3 ML NEB NEB SCH ×2 (01:29→08:40)
[2021-09-03] MEDS: HEPARIN SODIUM/DEXTROSE 25,000 UNITS/500 ML BAG IV SCH (06:22)
--- NOTE | 2021-09-03 07:27 | Hospitalist Progress Note ---
Date of Service September 03, 2021 Assessment & Plan (1) Atrial fibrillation/flutter: (2) Pneumonia: Plan: 75 yo F w/ hx of atrial fibrillation not on anticoagulation (was earlier on coumadin, stopped by doctor per Pt) and hypertension who presents on 08/30 with malaise, cough and palpitations over the past few weeks [employer] TECH[employer]IC[employer]. She is being managed for the following: CAP: Admitting CXR- bibasilar pna w/ b/l small pl. Eff. Continue with 08/31 Zithro + Rocephin; continue to monitor pl. Eff. clinically and as needed radiologically Patient reporting improvement in her cough Guaifenesin, flutter valve Will need repeat chest x-ray in 4 to 6 weeks to document resolution of pneumonia. Continue with supportive management/nebulization. On chest CT, there is significant adenopathy, also possible mass (concern for poss. malignancy, such as small cell lung ca) Discussed with pulmonary medicine, given probable mass, there is postobstructive pneumonia Recommend MRI brain with contrast, and outpatient PET scan Outpatient EBUS in a week or so Patient is [place] and moved from [facility] -we will need to establish care here Pt and her family aware of recommended tests- at this time want to wait and not proceed w/ any further work-up of the lung mass Afib/flutter: History of A. fib on Coumadin, discontinued Coumadin many years ago per patient On heparin drip, cardiology evaluated the patient: Titrating her metoprolol dose for rate control, however pt still tachycardic - started amiodarone Cont. IV heparin drip, transition to warfarin with a goal of 2.0-3.0. Started Coumadin today (09/01) INR subtherapeutic 08/31 echo: Normal LV systolic function with EF of 60 to 65% Continue telemetry monitoring. As needed meds for rate control. #. LLE cellulitis: on ATB per PNA, improving #. Hyponatremia: TSH nl, improving; increase protein intake; monitor daily. #. HTN: Continue with home meds, use as needed meds when appropriate. Full code On heparin drip Admission and Anticipated Discharge Date Admission Date: August 30, 2021 Subjective Patient seen in follow-up of pneumonia, A. fib/a flutter, with RVR, lung mass/adenopathy Currently patient is lying in bed, in no acute distress, breathing comfortably on room air Daughter and at the bedside She is on IV heparin, coumadin started, INR subtherapeutic Currently reports improvement of cough, denies chest pain shortness of breath Denies fevers, chills, abdominal pain, nausea vomiting Started on amiodarone by cardiology - HR improved Lung adenopathy/lung mass discussed with pulmonary medicine, recommend MRI brain, EBUS and PET scan as outpatient - Pt and family want to wait and not to proceed with any testing at this time Patient is from [facility], now plans to reside here. Will need to establish care. Pt is from [facility]. Review of Systems Review of Systems: All systems reviewed & are unremarkable except as noted in Subjective Physical Exam Physical Exam: GENERAL: Alert and oriented x3. NAD, on RA. HEENT: NC/AT. EOMI/ PERRL. No pallor, no icterus.Oral mucosa moist. NECK: No JVD, no neck masses. HEART: irregular, No murmur, no gallop. RESPIRATORY: Normal AP diameter. No accessory muscle use. No wheezing, no crackles. some rhonchi ABDOMEN: Soft, bowel sounds present, nontender, no distention. NEURO: Alert and oriented x3. No facial droop. Speech is clear. Moves extremities. EXTREMITIES: No edema, no erythema elsewhere seen. LLE anterior to ankle - 5x7 cm erythema---> improving, no tenderness Results & Data Results & Data ([facility]) Vital Signs (Past 12 Hours) Vital Signs Temp Pulse Pulse Resp BP Pulse Ox 09/03/21 03:00 36.7 C 89 17 137/80 91 09/02/21 23:31 36.8 C 63 18 136/67 93 09/02/21 23:03 58 L 09/02/21 19:51 36.9 C 75 18 134/74 95 09/02/21 19:46 80 16 93 Laboratory Results 09/03/21 09/03/21 09/03/21 Range/Units 14:10 06:46 06:46 WBC (4.8-10.8) K/uL RBC (4.2-5.4) M/uL Hgb (12.0-16.0) g/dL Hct (37-47) % MCV (80-100) fL MCH (25-34) pg MCHC (32-36) g/dL RDW Std Deviation (36.4-46.3) fL RDW Coeff of Wallace (11.5-14.5) % Plt Count (130-400) K/uL MPV (7.4-10.4) fL PT 11.6 (9.0-12.0) Seconds INR 1.2 H (0.9-1.1) APTT 58.9 H* 66.6 H* (21.0-31.0) Seconds PTT Ratio 2.2 2.6 Sodium 133 L (136-145) mmol/L Potassium 4.0 (3.5-5.1) mmol/L Chloride 99 (98-107) mmol/L Carbon Dioxide 24 (21-32) mmol/L Anion Gap 10.0 (3-11) BUN 10 (7-18) mg/dl Creatinine 0.44 L (0.6-1.2) mg/dl Est Cr Clr Drug Dosing 95.2 ml/min Est GFR ( Amer) 114.4 ml/min Est GFR (Non-Af Amer) 98.7 ml/min BUN/Creatinine Ratio 23.1 H (10-20) Glucose 108 H (70-99) mg/dl Calcium 9.4 (8.5-10.1) mg/dl Phosphorus 3.5 (2.5-4.9) mg/dl Magnesium 2.1 (1.8-2.4) mg/dl 09/03/21 Range/Units 06:46 WBC 6.17 (4.8-10.8) K/uL RBC 4.49 (4.2-5.4) M/uL Hgb 13.3 (12.0-16.0) g/dL Hct 39.2 (37-47) % MCV 87.3 (80-100) fL MCH 29.6 (25-34) pg MCHC 33.9 (32-36) g/dL RDW Std Deviation 44.3 (36.4-46.3) fL RDW Coeff of Wallace 14.0 (11.5-14.5) % Plt Count 366 (130-400) K/uL MPV 9.5 (7.4-10.4) fL PT (9.0-12.0) Seconds INR (0.9-1.1) APTT (21.0-31.0) Seconds PTT Ratio Sodium (136-145) mmol/L Potassium (3.5-5.1) mmol/L Chloride (98-107) mmol/L Carbon Dioxide (21-32) mmol/L Anion Gap (3-11) BUN (7-18) mg/dl Creatinine (0.6-1.2) mg/dl Est Cr Clr Drug Dosing ml/min Est GFR ( Amer) ml/min Est GFR (Non-Af Amer) ml/min BUN/Creatinine Ratio (10-20) Glucose (70-99) mg/dl Calcium (8.5-10.1) mg/dl Phosphorus (2.5-4.9) mg/dl Magnesium (1.8-2.4) mg/dl Medications Administered Current Inpatient Medications Acetaminophen (Acetaminophen 325 Mg Tab) 650 mg PO Q4H PRN PRN Reason: Pain or Fever Stop: 09/29/21 17:10 Amiodarone HCl (Amiodarone 200 Mg Tab) 200 mg PO TIDM [facility] Stop: 10/02/21 16:59 Last Admin: 09/02/21 16:57 Dose: 200 mg Documented by: Azithromycin (Azithromycin 250 Mg Tab) 250 mg PO QAM [facility] Stop: 09/10/21 08:59 Guaifenesin (Guaifenesin 600 Mg Tabcr) 600 mg PO Q12 [facility] Stop: 10/01/21 20:59 Last Admin: 09/02/21 20:31 Dose: 600 mg Documented by: Heparin Sodium/Dextrose (Heparin Sodium/Dextrose) 25,000 units in 500 mls @ 23 mls/hr IV .[id number] [facility]; Protocol Stop: 09/29/21 14:14 Last Admin: 09/03/21 06:22 Dose: 1,150 units/hr, 23 mls/hr Documented by: Ceftriaxone Sodium 2,000 mg/ (Dextrose) 70 mls @ 100 mls/hr IV Q24H [facility]; Protocol Stop: 09/05/21 14:41 Last Infusion: 09/02/21 13:52 Dose: Infused Documented by: Levalbuterol HCl (Levalbuterol Hcl 0.63 Mg/3 Ml Neb) 0.63 mg NEB Q6R [facility] Stop: 09/29/21 18:59 Last Admin: 09/03/21 01:29 Dose: Not Given Documented by: Metoprolol Tartrate (Metoprolol Tartrate 1 Mg/Ml Vial) 2.5 mg IV Q6 PRN PRN Reason: HR >110 Stop: 09/29/21 17:10 Last Admin: 09/01/21 04:54 Dose: 2.5 mg Documented by: Metoprolol Tartrate (Metoprolol Tartrate 50 Mg Tab) 50 mg PO TID [facility] Stop: 10/01/21 13:59 Last Admin: 09/02/21 20:31 Dose: 50 mg Documented by: Polyethylene Glycol (Polyethylene (Miralax) 17 Gm Pack) 17 gm PO DAILY PRN PRN Reason: Constipation Stop: 09/29/21 17:10 Warfarin Sodium (Warfarin Sod 5 Mg Tab) 5 mg PO DAILY@1600 [facility] Stop: 10/01/21 18:19 Last Admin: 09/02/21 16:57 Dose: 5 mg Documented by: (1) Pneumonia Laterality: bilateral Lung location: lower lobe of lung Pneumonia type: due to unspecified organism Qualified Code(s): J18.9 - Pneumonia, unspecified organism
[2021-09-03 07:57] LABS: Hematocrit (blood only) 39.2 % (37-47); Hemoglobin 13.3 g/dL (12.0-16.0); Mean Corpuscular Hemoglobin 29.6 pg (25-34); Mean Corpuscular Hgb Conc 33.9 g/dL (32-36); Mean Corpuscular Volume 87.3 fL (80-100); Mean Platelet Volume 9.5 fL (7.4-10.4); Platelet Count 366 K/uL (130-400); RDW Standard Deviation 44.3 fL (36.4-46.3); Red Blood Count 4.49 M/uL (4.2-5.4); White Blood Count 6.17 K/uL (4.8-10.8)
[2021-09-03 08:00] LABS: INR 1.2 (0.9-1.1); Partial Thromboplastin Ratio 2.6; Prothrombin Time 11.6 Seconds (9.0-12.0)
[2021-09-03 08:01] LABS: Partial Thromboplastin Time 66.6 Seconds (21.0-31.0)
[2021-09-03] MEDS: AMIODARONE 200 MG TAB PO SCH ×3 (08:25→17:26)
[2021-09-03] MEDS: guaiFENesin 600 MG TABCR PO SCH ×2 (08:25→21:17)
[2021-09-03] MEDS: METOPROLOL TARTRATE 50 MG TAB PO SCH (08:26)
[2021-09-03 08:29] LABS: BUN Creatinine Ratio 23.1 (10-20); Calcium 9.4 mg/dl (8.5-10.1); Creatinine Clr Calc Pharmacy 95.2 ml/min; Est GFR (African American) 114.4 ml/min; Est GFR (Non-African American) 98.7 ml/min; Magnesium 2.1 mg/dl (1.8-2.4)
[2021-09-03 08:30] LABS: Phosphorus 3.5 mg/dl (2.5-4.9)
[2021-09-03] MEDS ORDERED: AZITHROMYCIN 250 MG TAB PO SCH (09:00)
[2021-09-03] MEDS ORDERED: LEVALBUTEROL HCL 0.63 MG/3 ML NEB NEB PRN (10:05)
--- NOTE | 2021-09-03 11:00 | Cardiology Progress Note ---
Date of Service September 03, 2021 Assessment & Plan (1) Pneumonia: (2) Atrial fibrillation/flutter: (3) Acute hyponatremia: (4) Hypertension: (5) Abnormal chest CT: Plan: 1. Symptomatic atrial fibrillation/flutter with a rapid ventricular response. Duration unknown. Classification (i.e. paroxysmal, persistent, long-standing, permanent) unknown. [id number] Score is at least 5 points given her age of 75 or greater, female, hypertension history, and observed aortic plaque. Increase metoprolol to 100 mg twice a day. Continue amiodarone as prescribed by Dr. Jackson. Discontinue azithromycin. Check an EKG. Heparin to Coumadin anticoagulation; INR goal of 2.0 to 3.0. Needs to establish care locally; [facility] would be closest placed to obtain PT/INR. 2. Left upper lobe pneumonia. As per Hospitalist. 3. Hyponatremia. Improved. As per hospitalist 4. Cellulitis. Improved. As per hospitalist. 5. Inferior right hilar mass with postobstructive atelectasis/collapse involving the right lower lobe, subcarinal and additional right hilar adenopathy. ~50 pound weight loss and intermittent night sweats over the last 6 months. Recommend further evaluation. 6. Hypertension. See above. Admission and Anticipated Discharge Date Admission Date: August 30, 2021 Supervising Physician Co-Signing Physician Notes I have seen and examined the patient. I discussed the case with Mr. Demarco and reviewed the medical record. Her heart rates have improved dramatically with the addition of amiodarone however, she remains in atrial flutter. Subjective Patient seen and examined. Chart, medications, and telemetry reviewed. Heart rates are under acceptable control at night, uncontrolled throughout the day. Oral amiodarone prescribed by Dr. Jackson on September 02, 2021. TSH was normal on August 30, 2021 at 1.070 uIU/ml. LFTs on August 30, 2021 were as follows: AST 27. ALT 29. Alk phos mildly elevated at 163. Patient notably concurrently prescribed azithromycin. Notes sleeping well last night, cough seemed to have improved though was worse again this morning, productive of greenish-yellow sputum. No subjective fever. No chills. Breathing okay. No chest pain. No orthopnea or PND. No lower extremity peripheral edema. No dizziness or near syncope. Telemetry: Currently in atrial flutter with ventricular rates in the 120s and 130 range. Heart rates into the 70s intermittently overnight. No significant bradycardia or pauses. August 31, 2021 TTE Interpretation Summary ([facility], Dr. Lanier): No previoius studies available for comparison. Normal LV chamber size and wall thickness. Normal LV systolic function, EF 60-65%. No segmental LV WMA's. Mild aortic valve sclerosis, without significant aortic valvular stenosis. Mildly thickened mitral valve leaflets with mild mitral regurgitation. The interatrial septum bows towards the right atrium, consistent with elevated left atrial pressure. Review of Systems Review of Systems: Review of Systems: See HPI for pertinent positives. All other 10 point review of systems are negative. Physical Exam Physical Exam: General: A&Ox3. NAD. HENT: Normocephalic. Atraumatic. Eyes: PER. Conjunctiva pink, sclera clear. Neck: No carotid bruits. No JVD. No HJR. Heart: Irregular around 120 bpm. No murmur. PMI is nondisplaced. Lungs: Diminished. Decreased. Scattered rhonchi that improve post cough. Absent breath at the left base. No wheeze. Abdomen: +BS. Soft. Nontender. No masses or organomegaly. Extremities: Varicosities left lower extremity. No clubbing. No cyanosis. No significant edema. Pulses: radial=2/4, posterior tibial=2/4. Limited neurological examination is without focal deficit. Results & Data ([facility]) Vital Signs (Past 12 Hours) Vital Signs Temp Pulse Pulse Resp BP Pulse Ox 09/03/21 08:41 120 H 16 94 09/03/21 08:00 79 09/03/21 07:55 37.0 C 82 17 139/73 92 09/03/21 03:00 36.7 C 89 17 137/80 91 09/02/21 23:31 36.8 C 63 18 136/67 93 09/02/21 23:03 58 L Laboratory Results Laboratory Results - last 24 hr 09/02/21 09/03/21 09/03/21 12:05 06:46 06:46 WBC 6.17 RBC 4.49 Hgb 13.3 Hct 39.2 MCV 87.3 MCH 29.6 MCHC 33.9 RDW Std Deviation 44.3 RDW Coeff of Wallace 14.0 Plt Count 366 MPV 9.5 PT 11.4 INR 1.1 APTT PTT Ratio Sodium 133 L Potassium 4.0 Chloride 99 Carbon Dioxide 24 Anion Gap 10.0 BUN 10 Creatinine 0.44 L Est Cr Clr Drug Dosing 95.2 Est GFR ( Amer) 114.4 Est GFR (Non-Af Amer) 98.7 BUN/Creatinine Ratio 23.1 H Glucose 108 H Calcium 9.4 Phosphorus 3.5 Magnesium 2.1 09/03/21 06:46 WBC RBC Hgb Hct MCV MCH MCHC RDW Std Deviation RDW Coeff of Wallace Plt Count MPV PT 11.6 INR 1.2 H APTT 66.6 H* PTT Ratio 2.6 Sodium Potassium Chloride Carbon Dioxide Anion Gap BUN Creatinine Est Cr Clr Drug Dosing Est GFR ( Amer) Est GFR (Non-Af Amer) BUN/Creatinine Ratio Glucose Calcium Phosphorus Magnesium (1) Pneumonia Laterality: bilateral Lung location: lower lobe of lung Pneumonia type: due to unspecified organism Qualified Code(s): J18.9 - Pneumonia, unspecified organism
[2021-09-03] MEDS: DOXYCYCLINE HYCLATE 100 MG CAP PO SCH ×2 (11:22→21:17)
[2021-09-03] MEDS: cefTRIAXone SODIUM 2,000 MG in DEXTROSE 5% 50 ML IV SCH (14:27)
[2021-09-03 14:38] LABS: Partial Thromboplastin Ratio 2.2
[2021-09-03 14:46] LABS: Partial Thromboplastin Time 58.9 Seconds (21.0-31.0)
[2021-09-03] MEDS ORDERED: WARFARIN SOD 7.5 MG TAB PO STA (16:27)
[2021-09-03] MEDS: WARFARIN SOD 5 MG TAB PO SCH (17:04)
[2021-09-03] MEDS: METOPROLOL TARTRATE 100 MG TAB PO SCH (21:17)
[2021-09-04] MEDS: HEPARIN SODIUM/DEXTROSE 25,000 UNITS/500 ML BAG IV SCH (03:08)
[2021-09-04 07:23] LABS: Hematocrit (blood only) 37.8 % (37-47); Hemoglobin 12.7 g/dL (12.0-16.0); Mean Corpuscular Hemoglobin 29.5 pg (25-34); Mean Corpuscular Hgb Conc 33.6 g/dL (32-36); Mean Corpuscular Volume 87.7 fL (80-100); Mean Platelet Volume 9.1 fL (7.4-10.4); Platelet Count 366 K/uL (130-400); RDW Coefficient of Variation 14.3 % (11.5-14.5); RDW Standard Deviation 45.8 fL (36.4-46.3); Red Blood Count 4.31 M/uL (4.2-5.4); White Blood Count 5.38 K/uL (4.8-10.8)
[2021-09-04] MEDS: AMIODARONE 200 MG TAB PO SCH ×2 (07:33→16:24)
[2021-09-04] MEDS: guaiFENesin 600 MG TABCR PO SCH ×2 (07:33→21:09)
[2021-09-04] MEDS: METOPROLOL TARTRATE 100 MG TAB PO SCH ×2 (07:33→21:09)
[2021-09-04 07:40] LABS: Partial Thromboplastin Ratio 2.9
[2021-09-04 07:44] LABS: BUN Creatinine Ratio 21.7 (10-20); Calcium 9.8 mg/dl (8.5-10.1); Creatinine Clr Calc Pharmacy 81.8 ml/min; Est GFR (African American) 106.3 ml/min; Est GFR (Non-African American) 91.8 ml/min; Magnesium 2.1 mg/dl (1.8-2.4); Phosphorus 3.4 mg/dl (2.5-4.9)
[2021-09-04 07:52] LABS: Partial Thromboplastin Time 77.2 Seconds (21.0-31.0)
--- NOTE | 2021-09-04 08:17 | Hospitalist Progress Note ---
Date of Service September 04, 2021 Assessment & Plan (1) Atrial fibrillation/flutter: (2) Pneumonia: Plan: 75 yo F w/ hx of atrial fibrillation not on anticoagulation (was earlier on coumadin, stopped by doctor per Pt) and hypertension who presents on 08/30 with malaise, cough and palpitations over the past few weeks [employer]. She is being managed for the following: CAP: Admitting CXR- bibasilar pna w/ b/l small pl. Eff. Continue with 08/31 Zithro + Rocephin; continue to monitor pl. Eff. clinically and as needed radiologically Patient reporting improvement in her cough Guaifenesin, flutter valve Will need repeat chest x-ray in 4 to 6 weeks to document resolution of pneumonia. Continue with supportive management/nebulization. On chest CT, there is significant adenopathy, also possible mass (concern for poss. malignancy, such as small cell lung ca) Discussed with pulmonary medicine, given probable mass, there is postobstructive pneumonia Recommend MRI brain with contrast, and outpatient PET scan Outpatient EBUS in a week or so Patient is [place] and moved from [facility] -we will need to establish care here Pt and her family aware of recommended tests - at this time want to wait and not proceed w/ any further work-up of the lung mass Afib/flutter: History of A. fib on Coumadin, discontinued Coumadin many years ago per patient On heparin drip, cardiology evaluated the patient: Titrating her metoprolol dose for rate control, however pt still tachycardic - started amiodarone Cont. IV heparin drip, transition to warfarin with a goal of 2.0-3.0. Started Coumadin today (09/01) INR subtherapeutic 08/31 echo: Normal LV systolic function with EF of 60 to 65% Continue telemetry monitoring. As needed meds for rate control. #. LLE cellulitis: on ATB per PNA, improving #. Hyponatremia: TSH nl, improving; increase protein intake; monitor daily. #. HTN: Continue with home meds, use as needed meds when appropriate. Full code On heparin drip Admission and Anticipated Discharge Date Admission Date: August 30, 2021 Subjective Patient seen in follow-up of pneumonia, A. fib/a flutter, with RVR, lung mass/adenopathy Currently patient is lying in bed, in no acute distress, breathing comfortably on room air Daughter at the bedside She is on IV heparin, coumadin started, INR subtherapeutic Currently reports improvement of cough, denies chest pain shortness of breath Denies fevers, chills, abdominal pain, nausea vomiting Started on amiodarone by cardiology - HR improved Lung adenopathy/lung mass discussed with pulmonary medicine, recommend MRI brain, EBUS and PET scan as outpatient - Pt and family want to wait and not to proceed with any testing at this time Patient is from [facility], now plans to reside here. Will need to establish care. Pt is from [facility]. Review of Systems Review of Systems: All systems reviewed & are unremarkable except as noted in Subjective Physical Exam Physical Exam: GENERAL: Alert and oriented x3. NAD, on RA. HEENT: NC/AT. EOMI/ PERRL. No pallor, no icterus.Oral mucosa moist. NECK: No JVD, no neck masses. HEART: irregular, No murmur, no gallop. RESPIRATORY: Normal AP diameter. No accessory muscle use. No wheezing, no crackles. some rhonchi ABDOMEN: Soft, bowel sounds present, nontender, no distention. NEURO: Alert and oriented x3. No facial droop. Speech is clear. Moves extremities. EXTREMITIES: No edema, no erythema elsewhere seen. LLE anterior to ankle - 5x7 cm erythema (improving, no tenderness) Results & Data Results & Data ([facility]) Vital Signs (Past 12 Hours) Vital Signs Temp Pulse Pulse Resp BP BP Pulse Ox 09/04/21 07:54 37.0 C 63 18 146/75 H 94 09/04/21 04:54 36.9 C 68 16 128/73 94 09/03/21 23:28 58 L 09/03/21 23:04 36.6 C 55 L 16 131/72 94 Laboratory Results 09/04/21 09/04/21 09/04/21 Range/Units 06:40 06:40 06:40 WBC 5.38 (4.8-10.8) K/uL RBC 4.31 (4.2-5.4) M/uL Hgb 12.7 (12.0-16.0) g/dL Hct 37.8 (37-47) % MCV 87.7 (80-100) fL MCH 29.5 (25-34) pg MCHC 33.6 (32-36) g/dL RDW Std Deviation 45.8 (36.4-46.3) fL RDW Coeff of Wallace 14.3 (11.5-14.5) % Plt Count 366 (130-400) K/uL MPV 9.1 (7.4-10.4) fL PT 13.5 H (9.0-12.0) Seconds INR 1.4 H (0.9-1.1) APTT 77.2 H* (21.0-31.0) Seconds PTT Ratio 2.9 Sodium 132 L (136-145) mmol/L Potassium 4.0 (3.5-5.1) mmol/L Chloride 99 (98-107) mmol/L Carbon Dioxide 27 (21-32) mmol/L Anion Gap 6.0 (3-11) BUN 12 (7-18) mg/dl Creatinine 0.55 L (0.6-1.2) mg/dl Est Cr Clr Drug Dosing 81.8 ml/min Est GFR ( Amer) 106.3 ml/min Est GFR (Non-Af Amer) 91.8 ml/min BUN/Creatinine Ratio 21.7 H (10-20) Glucose 108 H (70-99) mg/dl Calcium 9.8 (8.5-10.1) mg/dl Phosphorus 3.4 (2.5-4.9) mg/dl Magnesium 2.1 (1.8-2.4) mg/dl A. phagocytophilum DNA (Negative) 09/03/21 08/30/21 Range/Units 14:10 10:23 WBC (4.8-10.8) K/uL RBC (4.2-5.4) M/uL Hgb (12.0-16.0) g/dL Hct (37-47) % MCV (80-100) fL MCH (25-34) pg MCHC (32-36) g/dL RDW Std Deviation (36.4-46.3) fL RDW Coeff of Wallace (11.5-14.5) % Plt Count (130-400) K/uL MPV (7.4-10.4) fL PT (9.0-12.0) Seconds INR (0.9-1.1) APTT 58.9 H* (21.0-31.0) Seconds PTT Ratio 2.2 Sodium (136-145) mmol/L Potassium (3.5-5.1) mmol/L Chloride (98-107) mmol/L Carbon Dioxide (21-32) mmol/L Anion Gap (3-11) BUN (7-18) mg/dl Creatinine (0.6-1.2) mg/dl Est Cr Clr Drug Dosing ml/min Est GFR ( Amer) ml/min Est GFR (Non-Af Amer) ml/min BUN/Creatinine Ratio (10-20) Glucose (70-99) mg/dl Calcium (8.5-10.1) mg/dl Phosphorus (2.5-4.9) mg/dl Magnesium (1.8-2.4) mg/dl A. phagocytophilum DNA Negative (Negative) Medications Administered Current Inpatient Medications Acetaminophen (Acetaminophen 325 Mg Tab) 650 mg PO Q4H PRN PRN Reason: Pain or Fever Stop: 09/29/21 17:10 Amiodarone HCl (Amiodarone 200 Mg Tab) 200 mg PO TIDM [facility] Stop: 10/02/21 16:59 Last Admin: 09/04/21 07:33 Dose: 200 mg Documented by: Doxycycline Hyclate (Doxycycline Hyclate 100 Mg Cap) 100 mg PO BID@1000,2200 [facility] Stop: 09/10/21 09:59 Last Admin: 09/03/21 21:17 Dose: 100 mg Documented by: Guaifenesin (Guaifenesin 600 Mg Tabcr) 600 mg PO Q12 [facility] Stop: 10/01/21 20:59 Last Admin: 09/04/21 07:33 Dose: 600 mg Documented by: Heparin Sodium/Dextrose (Heparin Sodium/Dextrose) 25,000 units in 500 mls @ 21 mls/hr IV .[id number] [facility]; Protocol Stop: 09/29/21 14:14 Last Titration: 09/04/21 08:00 Dose: 1,050 units/hr, 21 mls/hr Documented by: Ceftriaxone Sodium 2,000 mg/ (Dextrose) 70 mls @ 100 mls/hr IV Q24H [facility]; Protocol Stop: 09/05/21 14:41 Last Infusion: 09/03/21 15:08 Dose: Infused Documented by: Levalbuterol HCl (Levalbuterol Hcl 0.63 Mg/3 Ml Neb) 0.63 mg NEB Q6R PRN PRN Reason: Shortness Of Breath Or Wheezing Stop: 09/29/21 18:59 Metoprolol Tartrate (Metoprolol Tartrate 1 Mg/Ml Vial) 2.5 mg IV Q6 PRN PRN Reason: HR >110 Stop: 09/29/21 17:10 Last Admin: 09/01/21 04:54 Dose: 2.5 mg Documented by: Metoprolol Tartrate (Metoprolol Tartrate 100 Mg Tab) 100 mg PO BID [facility] Stop: 10/03/21 20:59 Last Admin: 09/04/21 07:33 Dose: 100 mg Documented by: Polyethylene Glycol (Polyethylene (Miralax) 17 Gm Pack) 17 gm PO DAILY PRN PRN Reason: Constipation Stop: 09/29/21 17:10 (1) Pneumonia Laterality: bilateral Lung location: lower lobe of lung Pneumonia type: due to unspecified organism Qualified Code(s): J18.9 - Pneumonia, unspecified organism
[2021-09-04 08:38] LABS: INR 1.4 (0.9-1.1); Prothrombin Time 13.5 Seconds (9.0-12.0)
[2021-09-04] MEDS: DOXYCYCLINE HYCLATE 100 MG CAP PO SCH ×2 (09:32→21:09)
[2021-09-04] MEDS: cefTRIAXone SODIUM 2,000 MG in DEXTROSE 5% 50 ML IV SCH (13:51)
--- NOTE | 2021-09-04 13:51 | Cardiology Progress Note ---
Date of Service September 04, 2021 Assessment & Plan (1) Pneumonia: (2) Atrial fibrillation/flutter: (3) Acute hyponatremia: (4) Hypertension: (5) Abnormal chest CT: Plan: By tomorrow the patient's INR should be therapeutic and the heparin can be stopped. The patient wants to go home and speak with her family and community regarding any further work-up regarding her lung pathology. I think that is appropriate. I would send her home on her current medications however, I would reduce the amiodarone to 200 mg daily before discharge. We can follow-up on the atrial flutter as an outpatient at which time we will consider the option of an elective cardioversion if the patient is willing. Admission and Anticipated Discharge Date Admission Date: August 30, 2021 Subjective The patient actually feels better today and has no new complaints. Review of Systems Review of Systems: Review of Systems: See HPI for pertinent positives. All other 10 point review of systems are negative. Physical Exam Physical Exam: General: no acute distress and stated age Head: normocephalic, no masses, lesions, tenderness or abnormalities Eyes: conjunctiva are pink and non-injected, sclera clear Neck: supple, no adenopathy, no bruits, normal jugular venous pulse, no hepatojugular reflux Chest: normal shape and normal respiratory effort Lungs: clear to auscultation and percussion Cardiac Exam: - irregular rate & rhythm, no murmurs gallops or rubs - normal S1, normal S2 Pulses: 2(+) throughout Abdomen: abdomen soft, non-tender, no abnormal masses and no hepatosplenomegaly Musculoskeletal: no gait disturbance, no joint inflammation, no deforming arthritis Extremities: no edema and no cyanosis Neuro: grossly normal exam Results & Data ([facility]) Vital Signs (Past 12 Hours) Vital Signs Temp Pulse Resp BP BP Pulse Ox 09/04/21 11:57 36.7 C 56 L 20 138/70 95 09/04/21 07:54 37.0 C 63 18 146/75 H 94 09/04/21 04:54 36.9 C 68 16 128/73 94 Laboratory Results Laboratory Results - last 24 hr 08/30/21 09/03/21 09/04/21 10:23 14:10 06:40 WBC RBC Hgb Hct MCV MCH MCHC RDW Std Deviation RDW Coeff of Wallace Plt Count MPV PT 13.5 H INR 1.4 H APTT 58.9 H* 77.2 H* PTT Ratio 2.2 2.9 Sodium Potassium Chloride Carbon Dioxide Anion Gap BUN Creatinine Est Cr Clr Drug Dosing Est GFR ( Amer) Est GFR (Non-Af Amer) BUN/Creatinine Ratio Glucose Calcium Phosphorus Magnesium A. phagocytophilum DNA Negative 09/04/21 09/04/21 06:40 06:40 WBC 5.38 RBC 4.31 Hgb 12.7 Hct 37.8 MCV 87.7 MCH 29.5 MCHC 33.6 RDW Std Deviation 45.8 RDW Coeff of Wallace 14.3 Plt Count 366 MPV 9.1 PT INR APTT PTT Ratio Sodium 132 L Potassium 4.0 Chloride 99 Carbon Dioxide 27 Anion Gap 6.0 BUN 12 Creatinine 0.55 L Est Cr Clr Drug Dosing 81.8 Est GFR ( Amer) 106.3 Est GFR (Non-Af Amer) 91.8 BUN/Creatinine Ratio 21.7 H Glucose 108 H Calcium 9.8 Phosphorus 3.4 Magnesium 2.1 A. phagocytophilum DNA Medications Administered Current Inpatient Medications Acetaminophen (Acetaminophen 325 Mg Tab) 650 mg PO Q4H PRN PRN Reason: Pain or Fever Stop: 09/29/21 17:10 Amiodarone HCl (Amiodarone 200 Mg Tab) 200 mg PO BIDM [facility] Stop: 10/04/21 16:59 Doxycycline Hyclate (Doxycycline Hyclate 100 Mg Cap) 100 mg PO BID@1000,2200 [facility] Stop: 09/10/21 09:59 Last Admin: 09/04/21 09:32 Dose: 100 mg Documented by: Guaifenesin (Guaifenesin 600 Mg Tabcr) 600 mg PO Q12 [facility] Stop: 10/01/21 20:59 Last Admin: 09/04/21 07:33 Dose: 600 mg Documented by: Heparin Sodium/Dextrose (Heparin Sodium/Dextrose) 25,000 units in 500 mls @ 21 mls/hr IV .[id number] [facility]; Protocol Stop: 09/29/21 14:14 Last Titration: 09/04/21 08:00 Dose: 1,050 units/hr, 21 mls/hr Documented by: Ceftriaxone Sodium 2,000 mg/ (Dextrose) 70 mls @ 100 mls/hr IV Q24H [facility]; Protocol Stop: 09/05/21 14:41 Last Infusion: 09/03/21 15:08 Dose: Infused Documented by: Levalbuterol HCl (Levalbuterol Hcl 0.63 Mg/3 Ml Neb) 0.63 mg NEB Q6R PRN PRN Reason: Shortness Of Breath Or Wheezing Stop: 09/29/21 18:59 Metoprolol Tartrate (Metoprolol Tartrate 1 Mg/Ml Vial) 2.5 mg IV Q6 PRN PRN Reason: HR >110 Stop: 09/29/21 17:10 Last Admin: 09/01/21 04:54 Dose: 2.5 mg Documented by: Metoprolol Tartrate (Metoprolol Tartrate 100 Mg Tab) 100 mg PO BID [facility] Stop: 10/03/21 20:59 Last Admin: 09/04/21 07:33 Dose: 100 mg Documented by: Polyethylene Glycol (Polyethylene (Miralax) 17 Gm Pack) 17 gm PO DAILY PRN PRN Reason: Constipation Stop: 09/29/21 17:10 (1) Pneumonia Laterality: bilateral Lung location: lower lobe of lung Pneumonia type: due to unspecified organism Qualified Code(s): J18.9 - Pneumonia, unspecified organism
[2021-09-04 14:34] LABS: Partial Thromboplastin Ratio 2.5
[2021-09-04 15:00] LABS: Partial Thromboplastin Time 65.9 Seconds (21.0-31.0)
[2021-09-04] MEDS: ADVANCED PROBIOTIC 1250 MG CAPSULE PO SCH (15:37)
[2021-09-05] MEDS: HEPARIN SODIUM/DEXTROSE 25,000 UNITS/500 ML BAG IV SCH (04:09)
--- NOTE | 2021-09-05 05:54 | Hospitalist Progress Note ---
Date of Service September 05, 2021 Assessment & Plan (1) Atrial fibrillation/flutter: (2) Pneumonia: Plan: 75 yo F w/ hx of atrial fibrillation not on anticoagulation (was earlier on coumadin, stopped by doctor per Pt) and hypertension who presents on 08/30 with malaise, cough and palpitations over the past few weeks EP[employer] DIRECT[employer]. She is being managed for the following: CAP: Admitting CXR- bibasilar pna w/ b/l small pl. Eff. Continue with 08/31 Zithro + Rocephin; continue to monitor pl. Eff. clinically and as needed radiologically Patient reporting improvement in her cough Guaifenesin, flutter valve Will need repeat chest x-ray in 4 to 6 weeks to document resolution of pneumonia. Continue with supportive management/nebulization. On chest CT, there is significant adenopathy, also possible mass (concern for poss. malignancy, such as small cell lung ca) Discussed with pulmonary medicine, given probable mass, there is postobstructive pneumonia Recommend MRI brain with contrast, and outpatient PET scan Outpatient [facility] in a week or so Patient is [place] and moved from [facility] -we will need to establish care here Pt and her family aware of recommended tests - at this time want to wait and not proceed w/ any further work-up of the lung mass Afib/flutter: History of A. fib on Coumadin, discontinued Coumadin many years ago per patient On heparin drip, cardiology evaluated the patient: Titrating her metoprolol dose for rate control, however pt still tachycardic - started amiodarone Cont. IV heparin drip, transition to warfarin with a goal of 2.0-3.0. Started Coumadin (on 09/01) INR subtherapeutic 08/31 echo: Normal LV systolic function with EF of 60 to 65% Continue telemetry monitoring. As needed meds for rate control. LLE cellulitis: on ATB per PNA, improving Hyponatremia: TSH nl, improving; increase protein intake; monitor daily. HTN: Continue with home meds, use as needed meds when appropriate. Full code On heparin drip Admission and Anticipated Discharge Date Admission Date: August 30, 2021 Subjective Patient seen in follow-up of pneumonia, A. fib/a flutter, with RVR, lung mass/adenopathy Currently patient is lying in bed, in no acute distress, breathing comfortably on room air HR now down to 50s, remains in A flutter (now on amiodarone and metoprolol) She is on IV heparin, coumadin started, INR subtherapeutic Currently reports improvement of cough, denies chest pain shortness of breath Denies fevers, chills, abdominal pain, nausea vomiting Review of Systems Review of Systems: All systems reviewed & are unremarkable except as noted in Subjective Physical Exam Physical Exam: GENERAL: Alert and oriented x3. NAD, on RA. HEENT: NC/AT. EOMI/ PERRL. No pallor, no icterus.Oral mucosa moist. NECK: No JVD, no neck masses. HEART: irregular, No murmur, no gallop. RESPIRATORY: Normal AP diameter. No accessory muscle use. No wheezing, no crackles. some rhonchi ABDOMEN: Soft, bowel sounds present, nontender, no distention. NEURO: Alert and oriented x3. No facial droop. Speech is clear. Moves extremities. EXTREMITIES: No edema, no erythema elsewhere seen. LLE anterior to ankle - 5x7 cm erythema (improved, no tenderness) Results & Data Results & Data ([facility]) Vital Signs (Past 12 Hours) Vital Signs Temp Pulse Pulse Resp BP Pulse Ox 09/05/21 05:11 36.6 C 56 L 16 158/72 H 95 09/05/21 00:05 36.7 C 52 L 16 138/71 97 09/04/21 23:42 54 L 09/04/21 19:51 36.5 C 84 16 132/56 L 90 Laboratory Results 09/05/21 09/05/21 09/05/21 Range/Units 07:10 07:10 07:10 WBC 5.45 (4.8-10.8) K/uL RBC 4.36 (4.2-5.4) M/uL Hgb 13.0 (12.0-16.0) g/dL Hct 38.4 (37-47) % MCV 88.1 (80-100) fL MCH 29.8 (25-34) pg MCHC 33.9 (32-36) g/dL RDW Std Deviation 45.6 (36.4-46.3) fL RDW Coeff of Wallace 14.3 (11.5-14.5) % Plt Count 326 (130-400) K/uL MPV 9.1 (7.4-10.4) fL PT 15.0 H (9.0-12.0) Seconds INR 1.5 H (0.9-1.1) APTT 63.2 H* (21.0-31.0) Seconds PTT Ratio 2.4 Sodium 134 L (136-145) mmol/L Potassium 4.1 (3.5-5.1) mmol/L Chloride 101 (98-107) mmol/L Carbon Dioxide 25 (21-32) mmol/L Anion Gap 9.0 (3-11) BUN 11 (7-18) mg/dl Creatinine 0.50 L (0.6-1.2) mg/dl Est Cr Clr Drug Dosing 90.5 ml/min Est GFR ( Amer) 109.7 ml/min Est GFR (Non-Af Amer) 94.7 ml/min BUN/Creatinine Ratio 22.5 H (10-20) Glucose 103 H (70-99) mg/dl Calcium 9.3 (8.5-10.1) mg/dl Phosphorus 3.5 (2.5-4.9) mg/dl Magnesium 1.9 (1.8-2.4) mg/dl A. phagocytophilum DNA (Negative) 09/04/21 08/30/21 Range/Units 14:05 10:23 WBC (4.8-10.8) K/uL RBC (4.2-5.4) M/uL Hgb (12.0-16.0) g/dL Hct (37-47) % MCV (80-100) fL MCH (25-34) pg MCHC (32-36) g/dL RDW Std Deviation (36.4-46.3) fL RDW Coeff of Wallace (11.5-14.5) % Plt Count (130-400) K/uL MPV (7.4-10.4) fL PT (9.0-12.0) Seconds INR (0.9-1.1) APTT 65.9 H* (21.0-31.0) Seconds PTT Ratio 2.5 Sodium (136-145) mmol/L Potassium (3.5-5.1) mmol/L Chloride (98-107) mmol/L Carbon Dioxide (21-32) mmol/L Anion Gap (3-11) BUN (7-18) mg/dl Creatinine (0.6-1.2) mg/dl Est Cr Clr Drug Dosing ml/min Est GFR ( Amer) ml/min Est GFR (Non-Af Amer) ml/min BUN/Creatinine Ratio (10-20) Glucose (70-99) mg/dl Calcium (8.5-10.1) mg/dl Phosphorus (2.5-4.9) mg/dl Magnesium (1.8-2.4) mg/dl A. phagocytophilum DNA Negative (Negative) Medications Administered Current Inpatient Medications Acetaminophen (Acetaminophen 325 Mg Tab) 650 mg PO Q4H PRN PRN Reason: Pain or Fever Stop: 09/29/21 17:10 Amiodarone HCl (Amiodarone 200 Mg Tab) 200 mg PO BIDM [facility] Stop: 10/04/21 16:59 Last Admin: 09/04/21 16:24 Dose: 200 mg Documented by: Doxycycline Hyclate (Doxycycline Hyclate 100 Mg Cap) 100 mg PO BID@1000,2200 [facility] Stop: 09/10/21 09:59 Last Admin: 09/04/21 21:09 Dose: 100 mg Documented by: Guaifenesin (Guaifenesin 600 Mg Tabcr) 600 mg PO Q12 [facility] Stop: 10/01/21 20:59 Last Admin: 09/04/21 21:09 Dose: 600 mg Documented by: Heparin Sodium/Dextrose (Heparin Sodium/Dextrose) 25,000 units in 500 mls @ 21 mls/hr IV .[id number] [facility]; Protocol Stop: 09/29/21 14:14 Last Admin: 09/05/21 04:09 Dose: 1,050 units/hr, 21 mls/hr Documented by: Ceftriaxone Sodium 2,000 mg/ (Dextrose) 70 mls @ 100 mls/hr IV Q24H [facility]; Protocol Stop: 09/05/21 14:41 Last Infusion: 09/04/21 14:38 Dose: Infused Documented by: Lactobacillus Acidoph/Casei/Rhamnos (Advanced Probiotic 1250 Mg Capsule) 2 cap PO DAILY [facility] Stop: 10/04/21 14:14 Last Admin: 09/04/21 15:37 Dose: 2 cap Documented by: Levalbuterol HCl (Levalbuterol Hcl 0.63 Mg/3 Ml Neb) 0.63 mg NEB Q6R PRN PRN Reason: Shortness Of Breath Or Wheezing Stop: 09/29/21 18:59 Metoprolol Tartrate (Metoprolol Tartrate 1 Mg/Ml Vial) 2.5 mg IV Q6 PRN PRN Reason: HR >110 Stop: 09/29/21 17:10 Last Admin: 09/01/21 04:54 Dose: 2.5 mg Documented by: Metoprolol Tartrate (Metoprolol Tartrate 100 Mg Tab) 100 mg PO BID [facility] Stop: 10/03/21 20:59 Last Admin: 09/04/21 21:09 Dose: 100 mg Documented by: Polyethylene Glycol (Polyethylene (Miralax) 17 Gm Pack) 17 gm PO DAILY PRN PRN Reason: Constipation Stop: 09/29/21 17:10 (1) Pneumonia Laterality: bilateral Lung location: lower lobe of lung Pneumonia type: due to unspecified organism Qualified Code(s): J18.9 - Pneumonia, unspecified organism
[2021-09-05 07:42] LABS: Hematocrit (blood only) 38.4 % (37-47); Mean Corpuscular Hemoglobin 29.8 pg (25-34); Mean Corpuscular Hgb Conc 33.9 g/dL (32-36); Mean Corpuscular Volume 88.1 fL (80-100); Mean Platelet Volume 9.1 fL (7.4-10.4); Platelet Count 326 K/uL (130-400); RDW Coefficient of Variation 14.3 % (11.5-14.5); RDW Standard Deviation 45.6 fL (36.4-46.3); Red Blood Count 4.36 M/uL (4.2-5.4); White Blood Count 5.45 K/uL (4.8-10.8)
[2021-09-05] MEDS: ADVANCED PROBIOTIC 1250 MG CAPSULE PO SCH (07:49)
[2021-09-05] MEDS: AMIODARONE 200 MG TAB PO SCH (07:50)
[2021-09-05] MEDS: METOPROLOL TARTRATE 100 MG TAB PO SCH (07:51)
[2021-09-05] MEDS: guaiFENesin 600 MG TABCR PO SCH (07:51)
[2021-09-05 08:00] LABS: BUN Creatinine Ratio 22.5 (10-20); Calcium 9.3 mg/dl (8.5-10.1); Creatinine Clr Calc Pharmacy 90.5 ml/min; Est GFR (African American) 109.7 ml/min; Est GFR (Non-African American) 94.7 ml/min; Magnesium 1.9 mg/dl (1.8-2.4); Potassium 4.1 mmol/L (3.5-5.1)
[2021-09-05 08:01] LABS: Phosphorus 3.5 mg/dl (2.5-4.9)
[2021-09-05 08:07] LABS: INR 1.5 (0.9-1.1); Partial Thromboplastin Ratio 2.4
[2021-09-05 08:10] LABS: Partial Thromboplastin Time 63.2 Seconds (21.0-31.0)
[2021-09-05] MEDS ORDERED: WARFARIN SOD 7.5 MG TAB PO SCH ×2 (09:00)
[2021-09-05] MEDS: DOXYCYCLINE HYCLATE 100 MG CAP PO SCH (10:07)
--- NOTE | 2021-09-05 13:25 | Cardiology Progress Note ---
Date of Service September 05, 2021 Assessment & Plan (1) Pneumonia: (2) Atrial fibrillation/flutter: (3) Hypertension: (4) Abnormal chest CT: Plan: The patient is in a controlled atrial flutter. I would continue the amiodarone at 200 mg daily. Her INR today is 1.5 and I think the IV heparin can be discontinued. The patient can be discharged per the hospitalist service. She lives close to [place] and has a choice between [facility], [facility] or [facility] for follow-up with a logistics supervisor. I think it is important that she have follow-up with a logistics supervisor after she is discharged for further care of her atrial arrhythmias. I discussed this with the patient and she assures me that she will speak with her family and make plans after discharge. Admission and Anticipated Discharge Date Admission Date: August 30, 2021 Subjective The patient had an uneventful night and has no new cardiac complaints today. Review of Systems Review of Systems: Review of Systems: See HPI for pertinent positives. All other 10 point review of systems are negative. Physical Exam Physical Exam: General: no acute distress and stated age Head: normocephalic, no masses, lesions, tenderness or abnormalities Eyes: conjunctiva are pink and non-injected, sclera clear Neck: supple, no adenopathy, no bruits, normal jugular venous pulse, no hepatojugular reflux Chest: normal shape and normal respiratory effort Lungs: clear to auscultation and percussion Cardiac Exam: - irregular rate & rhythm, no murmurs gallops or rubs - normal S1, normal S2 Pulses: 2(+) throughout Abdomen: abdomen soft, non-tender, no abnormal masses and no hepatosplenomegaly Musculoskeletal: no gait disturbance, no joint inflammation, no deforming arthritis Extremities: no edema and no cyanosis Neuro: grossly normal exam Results & Data ([facility]) Vital Signs (Past 12 Hours) Vital Signs Temp Pulse Resp BP BP Pulse Ox 09/05/21 11:54 36.8 C 57 L 18 119/53 L 92 09/05/21 08:20 36.6 C 58 L 18 130/71 93 09/05/21 05:11 36.6 C 56 L 16 158/72 H 95 Laboratory Results Laboratory Results - last 24 hr 09/04/21 09/05/21 09/05/21 14:05 07:10 07:10 WBC 5.45 RBC 4.36 Hgb 13.0 Hct 38.4 MCV 88.1 MCH 29.8 MCHC 33.9 RDW Std Deviation 45.6 RDW Coeff of Wallace 14.3 Plt Count 326 MPV 9.1 PT 15.0 H INR 1.5 H APTT 65.9 H* 63.2 H* PTT Ratio 2.5 2.4 Sodium Potassium Chloride Carbon Dioxide Anion Gap BUN Creatinine Est Cr Clr Drug Dosing Est GFR ( Amer) Est GFR (Non-Af Amer) BUN/Creatinine Ratio Glucose Calcium Phosphorus Magnesium 09/05/21 07:10 WBC RBC Hgb Hct MCV MCH MCHC RDW Std Deviation RDW Coeff of Wallace Plt Count MPV PT INR APTT PTT Ratio Sodium 134 L Potassium 4.1 Chloride 101 Carbon Dioxide 25 Anion Gap 9.0 BUN 11 Creatinine 0.50 L Est Cr Clr Drug Dosing 90.5 Est GFR ( Amer) 109.7 Est GFR (Non-Af Amer) 94.7 BUN/Creatinine Ratio 22.5 H Glucose 103 H Calcium 9.3 Phosphorus 3.5 Magnesium 1.9 Medications Administered Current Inpatient Medications Acetaminophen (Acetaminophen 325 Mg Tab) 650 mg PO Q4H PRN PRN Reason: Pain or Fever Stop: 09/29/21 17:10 Amiodarone HCl (Amiodarone 200 Mg Tab) 200 mg PO DAILY [facility] Stop: 10/06/21 08:59 Doxycycline Hyclate (Doxycycline Hyclate 100 Mg Cap) 100 mg PO BID@1000,2200 [facility] Stop: 09/10/21 09:59 Last Admin: 09/05/21 10:07 Dose: 100 mg Documented by: Guaifenesin (Guaifenesin 600 Mg Tabcr) 600 mg PO Q12 [facility] Stop: 10/01/21 20:59 Last Admin: 09/05/21 07:51 Dose: 600 mg Documented by: Ceftriaxone Sodium 2,000 mg/ (Dextrose) 70 mls @ 100 mls/hr IV Q24H [facility]; Protocol Stop: 09/05/21 14:41 Last Infusion: 09/04/21 14:38 Dose: Infused Documented by: Lactobacillus Acidoph/Casei/Rhamnos (Advanced Probiotic 1250 Mg Capsule) 2 cap PO DAILY [facility] Stop: 10/04/21 14:14 Last Admin: 09/05/21 07:49 Dose: 2 cap Documented by: Levalbuterol HCl (Levalbuterol Hcl 0.63 Mg/3 Ml Neb) 0.63 mg NEB Q6R PRN PRN Reason: Shortness Of Breath Or Wheezing Stop: 09/29/21 18:59 Metoprolol Tartrate (Metoprolol Tartrate 1 Mg/Ml Vial) 2.5 mg IV Q6 PRN PRN Reason: HR >110 Stop: 09/29/21 17:10 Last Admin: 09/01/21 04:54 Dose: 2.5 mg Documented by: Metoprolol Tartrate (Metoprolol Tartrate 100 Mg Tab) 100 mg PO BID [facility] Stop: 10/03/21 20:59 Last Admin: 09/05/21 07:51 Dose: 100 mg Documented by: Polyethylene Glycol (Polyethylene (Miralax) 17 Gm Pack) 17 gm PO DAILY PRN PRN Reason: Constipation Stop: 09/29/21 17:10 Warfarin Sodium (Warfarin Sod 7.5 Mg Tab) 7.5 mg PO DAILY@1600 [facility] Stop: 10/05/21 08:59 Last Admin: 09/05/21 10:03 Dose: 7.5 mg Documented by: (1) Pneumonia Laterality: bilateral Lung location: lower lobe of lung Pneumonia type: due to unspecified organism Qualified Code(s): J18.9 - Pneumonia, unspecified organism
[2021-09-05] MEDS: cefTRIAXone SODIUM 2,000 MG in DEXTROSE 5% 50 ML IV SCH (13:53)
--- NOTE | 2021-09-05 15:14 | Discharge Summary ---
Date of Service September 05, 2021 Admission HPI Per Admitting Provider This is a 75-year-old female with PMH of atrial fibrillation not on anticoagulation and hypertension who presents with malaise, cough and palpitations over the past few weeks. Patient began to feel poorly approximat bobby 2 weeks ago with sore throat and headache as well as low-grade fever of 99 F. Continue to feel tired with wet productive cough and decreased appetite as well as developing shortness of breath over the past few days. Has felt generally weak and unable to perform work duties as usual. Has had intermittent palpitations of the past 2 weeks but have been persistent for the past 24 hours. Also felt lightheaded this morning and near syncopal, further prompting presentation to ED. Does endorse remote history of atrial fibrillation diagnosis 20 years ago when she lived in [place]. Patient is [place] and does not receive routine medical care. However she does intermittently follow-up with a primary care doctor in [place] named Dr. Singer. He prescribes her 1 medication for blood pressure/atrial fibrillation that she believes is metoprolol. Dose unknown. Daughter is calling shared communal phone to try to confirm medication name and dose. Was initially on anticoagulation 20 years ago for a few months before she was instructed to discontinue. Takes a baby aspirin. Denies any known history of coronary artery disease, blood clots or diabetes. Children who live with patient were sick a few weeks ago. No known Covid although family and community members unvaccinated. Patient denies current fever, chills, headache, chest pain, hemoptysis, nausea, vomiting, abdominal pain, dysuria, diarrhea or constipation. Does have increased urinary urgency over the past week. Admission Exam Per Admitting Provider General Appearance:WD/WN, vitals as above, NAD, lying in bed, pleasant, conversing easily Head: normocephalic, atraumatic Eyes:normal inspection, PERRL, conjunctivae normal, anicteric sclerae ENT: external ear and nose normal, dry mucous membranes oropharynx Neck: normal visual inspection, trachea midline, no thyromegaly Respiratory:normal respiratory effort, bibasilar rales, scattered rhonchi throughout, no wheezing. No accessory muscle use Cardiovascular: tachycardic rate, regular rhythm, no murmur appreciated, normal peripheral pulses, no BLE edema. Vessels: no JVD Chest: normal inspection of chest Abdomen/GI: normal bowel sounds, soft, nontender, no hepatosplenomegaly Extremities/Musculoskeletal: no cyanosis or clubbing, extremities motor strength 5/5 Neurologic: PERRL, EOMI, accommodation nl, no face palsy, no dysarthria, CN's II-XI intact bilaterally and moves all extremities Psychiatric:A+Ox3, euthymic affect Skin: Small area of erythema LLE on anterior aspect of ankle, non-tender and no drainage. Normal color, warm/dry Principal Diagnosis Atrial flutter Pneumonia Hyponatremia Lung mass Discharge Exam GENERAL: Alert and oriented x3. NAD, on RA. HEENT: NC/AT. EOMI/ PERRL. No pallor, no icterus.Oral mucosa moist. NECK: No JVD, no neck masses. HEART: irregular, No murmur, no gallop. RESPIRATORY: Normal AP diameter. No accessory muscle use. No wheezing, no crackles. some rhonchi ABDOMEN: Soft, bowel sounds present, nontender, no distention. NEURO: Alert and oriented x3. No facial droop. Speech is clear. Moves extremities. EXTREMITIES: No edema, no erythema elsewhere seen. LLE anterior to ankle - 5x7 cm erythema (improved, no tenderness) Discharge Data Allergies Allergy/AdvReac Type Severity Reaction Status Date / Time No Known Allergies Allergy Unverified 08/30/21 13:07 Consultations 08/30/21 11:59 ED Decision to Admit Stat 08/31/21 09:06 Consult Cardiology Routine Ordered Studies 08/30/21 13:43 CT angio chest PE protocol Urgent Impression: 1. No CTA evidence for pulmonary embolus. 2. Evidence for inferior right hilar mass with postobstructive atelectasis/collapse involving the right lower lobe. 3. AP window, subcarinal and additional right hilar adenopathy characteristic of metastatic disease. 4. Confluent alveolar opacity within the left lower lobe with air bronchograms most characteristic of the presence of pneumonia. 5. Follow-up PET/CT would be the study of choice for further evaluation. Hospital Course (1) Atrial fibrillation/flutter: (2) Pneumonia: 75 yo F w/ hx of atrial fibrillation not on anticoagulation (was earlier on coumadin, stopped by doctor per Pt) and hypertension who presents on 08/30 with malaise, cough and palpitations over the past few weeks [employer]. She is being managed for the following: CAP: Admitting CXR- bibasilar pna w/ b/l small pl. Eff. Continue with 08/31 Zithro + Rocephin; continue to monitor pl. Eff. clinically and as needed radiologically Patient reporting improvement in her cough Guaifenesin, flutter valve Will need repeat chest x-ray in 4 to 6 weeks to document resolution of pneumonia. Continue with supportive management/nebulization. On chest CT, there is significant adenopathy, also possible mass (concern for poss. malignancy, such as small cell lung ca) Discussed with pulmonary medicine, given probable mass, there is postobstructive pneumonia Recommend MRI brain with contrast, and outpatient PET scan Outpatient EBUS in a week or so Patient is [place] and moved from [facility] -we will need to establish care here Pt and her family aware of recommended tests - at this time want to wait and not proceed w/ any further work-up of the lung mass Afib/flutter: History of A. fib on Coumadin, discontinued Coumadin many years ago per patient On heparin drip, cardiology evaluated the patient: Titrating her metoprolol dose for rate control, however pt still tachycardic - started amiodarone Cont. IV heparin drip, transition to warfarin with a goal of 2.0-3.0. Started Coumadin (on 09/01) INR subtherapeutic 08/31 echo: Normal LV systolic function with EF of 60 to 65% Continue telemetry monitoring. As needed meds for rate control. LLE cellulitis: on ATB per PNA (resolved) Hyponatremia: TSH nl, improving; increase protein intake; monitor daily. HTN: Continue with home meds, use as needed meds when appropriate. Total Time Total Time Spent Total Time Spent (In Minutes): 40 Discharge Plan Discharge Items Patient Disposition: Home - Self-Care Reason For Visit: A FLUTTER, PLNEUMONIA,, HYPONATREMIA Discharge Diagnosis: Atrial flutter Pneumonia Hyponatremia Lung mass Activity: Per Instructions section Non-emergency contact: Primary Care Provider and Market Research Specialist Call non-emergency contact if: you have any medication questions and your symptoms worsen Follow-up/Referrals: PCP,NO [Primary Care Provider] - Diet: Regular Addtl Attending Provider Instructions: You will need to follow-up with primary care doctor and event attendant. You will be contacted about the appointment. Take metoprolol 100 mg twice a day and amiodarone 200 mg daily. In addition, you were started on blood thinner, Coumadin, take 5 mg daily and follow-up closely with healthcare providers/anticoagulation clinic as your blood work/INR needs to be closely monitored. Recommend to take Mucinex for next 7 days and using of a flutter valve several times a day for next couple of days as well. Pending Studies at Discharge: No Stand-Alone Forms: [facility], Smoking Cessation Medications and DC Order Prescriptions: New metoprolol tartrate 100 mg Tablet 100 mg PO BID Qty: 60 RF: 0 amiodarone 200 mg Tablet 200 mg PO DAILY Qty: 30 RF: 0 guaifenesin [Mucinex] 600 mg Tablet Extended Release 12hr 600 mg PO Q12 Qty: 14 RF: 0 warfarin 5 mg tablet 5 mg PO DAILY Qty: 30 RF: 0 Continued aspirin [Aspirin Low Dose] 81 mg Tablet,Delayed Release (Dr/Ec) 81 mg PO DAILY RF: 0 garlic Tablet 1,000 mg PO PC RF: 0 Blood Pressure Medication 1 tab PO DAILY RF: 0 Changed metoprolol tartrate 50 mg 100 mg PO DAILY Qty: 0 RF: 0 Discharge Orders: Discharge Order (Routine); Ordered 09/05/21 Ordered By: Gilbert Han Admission Data Admit Date/Time: 08/30/21 12:35 Attending Provider: Gilbert Han Admit Provider: Roni Borja Primary Care Provider: PCP,NO Other Providers: Roni Borja ; Carlin Lanier
[2021-09-06] MEDS ORDERED: AMIODARONE 200 MG TAB PO SCH (09:00)
== END 2021-09-05 16:01 | disposition home or self-care (01) | DRG 194 ==
LOC: EDBD → ED 09:32 → SUATTDRO 12:35 → EDINP 12:35 → 2S 17:28

== ENCOUNTER 2023-07-16 15:19 | Inpatient (IN) ==
[2023-07-16] MEDS ORDERED: ASPIRIN CHEW 324 MG PO STA (15:28)
[2023-07-16] MEDS ORDERED: SODIUM CHLORIDE 0.9% 1,000 ML IV STA (15:28)
[2023-07-16] MEDS ORDERED: dilTIAZem HCl 5 MG/ML 5 ML VIAL IV ONE (15:39)
[2023-07-16 15:53] LABS: Basophils # (auto) 0.05 K/uL (0.00-0.20); Basophils % (auto) 0.6 %; Eosinophils # (auto) 0.02 K/uL (0.00-0.50); Eosinophils % (auto) 0.2 %; Hematocrit (blood only) 35.5 % (37.0-47.0); Hemoglobin 12.1 g/dl (12.0-16.0); Immature Granulocytes # (auto) 0.03 K/uL (0.01-0.20); Immature Granulocytes % (auto) 0.4 %; Lymphocytes # (auto) 0.56 K/uL (1.20-3.40); Lymphocytes % (auto) 6.6 %; Mean Corpuscular Hemoglobin 30.4 pg (25.0-34.0); Mean Corpuscular Hgb Conc 34.1 g/dL (32.0-36.0); Mean Corpuscular Volume 89.2 fL (80.0-100.0); Mean Platelet Volume 9.5 fL (9.4-12.4); Monocytes # (auto) 1.01 K/uL (0.11-0.59); Neutrophils # (auto) 6.76 K/uL (1.40-6.50); Neutrophils % (auto) 80.2 %; Platelet Count 152 K/uL (130-400); RDW Coefficient of Variation 13.6 % (11.5-14.5); RDW Standard Deviation 44.4 fL (36.4-46.3); Red Blood Count 3.98 M/uL (4.20-5.40); White Blood Count 8.43 K/ul (4.8-10.8)
[2023-07-16] MEDS ORDERED: dilTIAZem HCl 5 MG/ML 5 ML VIAL IV STA (15:55)
--- NOTE | 2023-07-16 16:05 | XRay Report ---
SINGLE VIEW CHEST CLINICAL HISTORY: Atypical chest pain FINDINGS: An AP, portable, upright chest radiograph is compared to study dated 09/01/2021 and correla daxa with chest CT dated 08/30/2021. The heart is enlarged and noting atherosclerotic calcification of the thoracic aorta. There is pulmonary vascular congestion. Airspace consolidation is seen at both l eduardo bases. No large pleural effusion or pneumothorax is seen. There are scattered calcified granuloma s. The skeletal structures are osteopenic. The bony thorax is grossly intact. IMPRESSION: 1. Cardiomegaly with pulmonary vascular congestion. 2. Bibasilar consolidation, left greater than right. Correlate clinically for evidence of pneumonia/a spiration pneumonitis. Radiographic follow-up to resolution is recommended. ACT 112: Negative or not required by law. Electronically signed by: Miguel Rivera M.D. 07/16/2023 4:03 PM
[2023-07-16 16:07] LABS: iSTAT Creatinine 0.4 mg/dl (0.6-1.3); iSTAT Hemoglobin 12.9 g/dl (12.0-16.0); iSTAT Ionized Calcium 1.19 mmol/l (1.12-1.32); iSTAT Potassium 4.1 mmol/L (3.3-5.0)
--- NOTE | 2023-07-16 16:09 | Emergency Department Note ---
History of Present Illness General Chief Complaint: Chest Pain Time Seen by Provider: 07/16/23 15:27 History of Present Illness Provider Complaint: chest pain Time: 12:00 Duration: improved Onset: during rest Pain Location: substernal Pain Radiation: neck Severity: moderate Maximum Pain Intensity: 6 Current Pain Intensity: 3 Quality: + aching, + heaviness and + dull Relieved By: + nitroglycerin Exacerbated By: + nothing Context: no recent illness, no recent surgery, no recent immobilization, no recent travel or no trauma/injury Associated symptoms: + dyspnea and + palpitations; no nausea, no diaphoresis, no syncope, no fever, no cough or no leg swelling Patient and family at bedside states that the patient has stopped taking all of her prescribed heart medications for over a year including her amiodarone and warfarin and states they have been doing "natural remedies". Home Medications Medication Instructions Recorded Confirmed Type Blood Pressure Medication 1 tab PO DAILY 08/30/21 08/30/21 History aspirin 81 mg tablet,delayed 81 mg PO DAILY 08/30/21 08/30/21 History release (Jules Low Dose Aspirin) garlic 1,000 mg PO PC 08/30/21 08/30/21 History amiodarone 200 mg tablet 200 mg PO DAILY #30 tabs 09/05/21 Rx guaifenesin 600 mg tablet, 600 mg PO Q12 #14 tabs 09/05/21 Rx extended release 12 hr (Mucinex) metoprolol tartrate 100 mg PO DAILY ##0 09/05/21 08/30/21 Rx metoprolol tartrate 100 mg tablet 100 mg PO BID #60 tabs 09/05/21 Rx warfarin 5 mg tablet 5 mg PO DAILY #30 tabs 09/05/21 Rx Allergies Allergy/AdvReac Type Severity Reaction Status Date / Time No Known Allergies Allergy Unverified 08/30/21 13:07 Past Med/Surg History Medical History Atrial fibrillation Hypertension Surgical History H/O section Family History Other Cancer Coronary heart disease Social History Smoking Status: Never smoker Hx Alcohol Use: No Hx Substance Use: No Preferred Language: Luxembourgish Communication Ability: Effective Beliefs That Will Affect Care: Caodaism marital status: Current Living Situation: Family How many Children do You have: 8 Feels Safe at Home: Yes Assistive Devices: Glasses Physical Exam Vital Signs Vital Signs - 24 hr 07/16/23 15:22 07/16/23 15:22 07/16/23 15:59 Temperature 36.7 C Temperature Source Temporal Artery Scan Pulse Rate 133 H 130 H Pulse Rate from SpO2 Sensor Respiratory Rate 22 Respiratory Effort / Characteristics Non-Labored Respiratory Depth Normal Blood Pressure 157/86 H Blood Pressure Mean 109 Pulse Oximetry 100 Oxygen Delivery Method Room Air Room Air Sepsis Recent Fever Within 48 Hours No Sepsis New/Unexplained Change in Mental Status No Sepsis Action Taken by Nursing Physician Notified Pulse Oximetry Post Tiitration 100 07/16/23 15:42 07/16/23 15:50 07/16/23 16:00 Temperature Temperature Source Pulse Rate 94 H 97 H 103 H Pulse Rate from SpO2 Sensor 105 H Respiratory Rate 19 23 22 Respiratory Effort / Characteristics Respiratory Depth Blood Pressure 130/83 145/81 H 141/96 H Blood Pressure Mean 98 102 111 Pulse Oximetry 95 94 95 Oxygen Delivery Method Room Air Room Air Room Air Sepsis Recent Fever Within 48 Hours Sepsis New/Unexplained Change in Mental Status Sepsis Action Taken by Nursing Pulse Oximetry Post Tiitration 07/16/23 16:18 07/16/23 16:30 Temperature Temperature Source Pulse Rate 90 83 Pulse Rate from SpO2 Sensor Respiratory Rate 19 18 Respiratory Effort / Characteristics Respiratory Depth Blood Pressure 149/82 H 150/88 H Blood Pressure Mean 104 108 Pulse Oximetry 95 95 Oxygen Delivery Method Room Air Room Air Sepsis Recent Fever Within 48 Hours Sepsis New/Unexplained Change in Mental Status Sepsis Action Taken by Nursing Pulse Oximetry Post Tiitration Physical Exam GENERAL: oriented to person, place, and time. appears well-developed and well- nourished. HENT: Exam performed. - Head: Normocephalic and atraumatic. EYES: Conjunctivae and EOM are normal. Right eye exhibits no discharge. Left eye exhibits no discharge. No scleral icterus. NECK: Normal range of motion. Neck supple. No JVD present. CV: Tachycardic rate, irregular rhythm, normal heart sounds and intact distal pulses. There is no peripheral edema. Palpable radial pulses bue. PULM/CHEST: Effort normal and breath sounds normal. No respiratory distress. No stridor. no wheezes. no rales. ABD: The abdomen is soft. There is no tenderness. NEURO: Motor and sensation grossly intact. SKIN: Skin is warm and dry. He is not diaphoretic. PSYCH: normal mood and affect. Behavior is normal. Judgment and thought content normal. Course Course 1527: The patient was evaluated in room C9. A complete history and physical exam was performed Cardiac monitoring: An order was placed for continuous cardiac monitoring. The monitor shows a rate of 110-130 with atrial fibrilation rhythm interpreted by me Patient found to be in atrial flutter with RVR. Large-bore IV access was ordered and IV fluids were started. Cardizem 10 mg IV push was given which improved the patient's ventricular rate. We will conduct cardiac panel as well as CT of the chest given that the patient has not been on any of her medications in over a year for her cardiac problems. 1713: Vital signs stable status post Cardizem bolus patient remains in atrial flutter rhythm however the ventricular rate is controlled. Labs are within normal limits with exception of a mild hyponatremia. Troponin negative. CTA of the chest negative for PE. Imaging does show cardiomegaly with cephalization. Patient is willing to be restarted on Western medications for her heart disease. Is thought that the patient would be better served to be admitted to the hospitalist service with cardiology on consult, echocardiogram given her cardiomegaly and cephalization, and have her sodium gently corrected rather than following up outpatient. Patient and family are in agreement with this plan. Patient will be admitted to the [facility] hospitalist team. Administered Medications Discontinued Medications Aspirin (Aspirin Chew 324 Mg) 324 mg PO NOW STA Stop: 07/16/23 15:29 Last Admin: 07/16/23 15:59 Dose: Not Given Documented By: MAYA Diltiazem HCl (Diltiazem Hcl 5 Mg/Ml 5 Ml Vial) Confirm Administered Dose 25 mg IV .STK-MED ONE Stop: 07/16/23 15:40 Last Increment: 07/16/23 15:41 Dose: 10 mg Documented By: MAYA Co-signed By: ORA Diltiazem HCl (Diltiazem Hcl 5 Mg/Ml 5 Ml Vial) 10 mg IV NOW STA Stop: 07/16/23 15:56 Last Admin: 07/16/23 15:58 Dose: Not Given Documented By: MAYA Sodium Chloride (Nss) 1,000 mls @ 999 mls/hr IV .Q1H1M STA Stop: 07/16/23 16:28 Last Admin: 07/16/23 15:52 Dose: 999 mls/hr Documented By: MAYA Ioversol (Optiray 320 500ml) 114 ml IV ONCE ONE Stop: 07/16/23 16:11 Last Admin: 07/16/23 16:10 Dose: 114 ml Documented By: PEGGY Medical Decision Making Laboratory Data Attestation: I reviewed the patient's lab results. 07/16/23 Unknown 07/16/23 Unknown Labs: Lab Results 07/16/23 07/16/23 07/16/23 Range/Units 15:36 16:15 Unknown WBC 8.43 (4.8-10.8) K/ul RBC 3.98 L (4.20-5.40) M/uL Hgb 12.1 (12.0-16.0) g/dl POC Hgb 12.9 (12.0-16.0) g/dl Hct 35.5 L (37.0-47.0) % POC Hct 38 (37-47) % MCV 89.2 (80.0-100.0) fL MCH 30.4 (25.0-34.0) pg MCHC 34.1 (32.0-36.0) g/dL RDW Std Deviation 44.4 (36.4-46.3) fL RDW Coeff of Wallace 13.6 (11.5-14.5) % Plt Count 152 (130-400) K/uL MPV 9.5 (9.4-12.4) fL Immature Gran % (Auto) 0.4 % Neut % (Auto) 80.2 % Lymph % (Auto) 6.6 % [place] % (Auto) 12.0 % Eos % (Auto) 0.2 % Baso % (Auto) 0.6 % Neut # (Auto) 6.76 H (1.40-6.50) K/uL Lymph # (Auto) 0.56 L (1.20-3.40) K/uL [place] # (Auto) 1.01 H (0.11-0.59) K/uL Eos # (Auto) 0.02 (0.00-0.50) K/uL Baso # (Auto) 0.05 (0.00-0.20) K/uL Immature Gran # (Auto) 0.03 (0.01-0.20) K/uL PT (9.0-12.0) Seconds INR (0.9-1.1) APTT (21.0-31.0) Seconds PTT Ratio POC Sodium 128 L (135-144) mmol/L Sodium (136-145) mmol/L POC Potassium 4.1 (3.3-5.0) mmol/L Potassium (3.5-5.1) mmol/L POC Chloride 93 L (101-112) mmol/L Chloride (98-107) mmol/L Carbon Dioxide (21-32) mmol/L POC Total CO2 25 (24-31) mmol/L Anion Gap (3-11) POC Anion Gap 15.0 L (16-25) mmol/L POC BUN 14 (7-18) mg/dl BUN (6-23) mg/dl Creatinine (0.6-1.2) mg/dl POC Creatinine 0.4 L (0.6-1.3) mg/dl Est Cr Clr Drug Dosing ml/min Est GFR ( Amer) ml/min Est GFR (Non-Af Amer) ml/min BUN/Creatinine Ratio (10-20) Glucose (70-99(Fasting)) mg/dl POC Glucose (other) 150 H (70-99) mg/dl Calcium (8.6-10.3) mg/dl POC Ioniz Calcium Nestor 1.19 (1.12-1.32) mmol/l Magnesium (1.7-2.4) mg/dl Troponin I High Sens (0-14) pg/ml Lipase (11-82) U/L SARS-CoV-2, RNA, NAAT NEGATIVE (NEGATIVE) 07/16/23 07/16/23 Range/Units Unknown Unknown WBC (4.8-10.8) K/ul RBC (4.20-5.40) M/uL Hgb (12.0-16.0) g/dl POC Hgb (12.0-16.0) g/dl Hct (37.0-47.0) % POC Hct (37-47) % MCV (80.0-100.0) fL MCH (25.0-34.0) pg MCHC (32.0-36.0) g/dL RDW Std Deviation (36.4-46.3) fL RDW Coeff of Wallace (11.5-14.5) % Plt Count (130-400) K/uL MPV (9.4-12.4) fL Immature Gran % (Auto) % Neut % (Auto) % Lymph % (Auto) % [place] % (Auto) % Eos % (Auto) % Baso % (Auto) % Neut # (Auto) (1.40-6.50) K/uL Lymph # (Auto) (1.20-3.40) K/uL [place] # (Auto) (0.11-0.59) K/uL Eos # (Auto) (0.00-0.50) K/uL Baso # (Auto) (0.00-0.20) K/uL Immature Gran # (Auto) (0.01-0.20) K/uL PT 11.1 (9.0-12.0) Seconds INR 1.0 (0.9-1.1) APTT 27.6 (21.0-31.0) Seconds PTT Ratio 1.0 POC Sodium (135-144) mmol/L Sodium 127 L (136-145) mmol/L POC Potassium (3.3-5.0) mmol/L Potassium 4.1 (3.5-5.1) mmol/L POC Chloride (101-112) mmol/L Chloride 96 L (98-107) mmol/L Carbon Dioxide 25 (21-32) mmol/L POC Total CO2 (24-31) mmol/L Anion Gap 6 (3-11) POC Anion Gap (16-25) mmol/L POC BUN (7-18) mg/dl BUN 16 (6-23) mg/dl Creatinine 0.43 L (0.6-1.2) mg/dl POC Creatinine (0.6-1.3) mg/dl Est Cr Clr Drug Dosing 106.5 ml/min Est GFR ( Amer) 113.7 ml/min Est GFR (Non-Af Amer) 98.1 ml/min BUN/Creatinine Ratio 37.2 H (10-20) Glucose 151 H (70-99(Fasting)) mg/dl POC Glucose (other) (70-99) mg/dl Calcium 8.8 (8.6-10.3) mg/dl POC Ioniz Calcium Nestor (1.12-1.32) mmol/l Magnesium 1.9 (1.7-2.4) mg/dl Troponin I High Sens 8.7 (0-14) pg/ml Lipase 10 L (11-82) U/L SARS-CoV-2, RNA, NAAT (NEGATIVE) Imaging Data Chest x-ray: Attestation: I personally reviewed and interpreted this imaging study as follows: My impression: Chest x-ray: Cardiomegaly with mild cephalization Radiologist's impression: SINGLE VIEW CHEST CLINICAL HISTORY: Atypical chest pain FINDINGS: An AP, portable, upright chest radiograph is compared to study dated 09/01/2021 and correlated with chest CT dated 08/30/2021. The heart is enlarged and noting atherosclerotic calcification of the thoracic aorta. There is pulmonary vascular congestion. Airspace consolidation is seen at both lung bases. No large pleural effusion or pneumothorax is seen. There are scattered calcified granulomas. The skeletal structures are osteopenic. The bony thorax is grossly intact. IMPRESSION: 1. Cardiomegaly with pulmonary vascular congestion. 2. Bibasilar consolidation, left greater than right. Correlate clinically for evidence of pneumonia/aspiration pneumonitis. Radiographic follow-up to resolution is recommended. ACT 112: Negative or not required by law. Electronically signed by: Miguel Rivera M.D. 07/16/2023 4:03 PM Dictated:07/16/23 1602 Transcribed: 07/16/[address] scan - chest: Radiologist's impression: CT ANGIOGRAM OF THE CHEST CLINICAL HISTORY: Atypical chest pain. Dyspnea. COMPARISON STUDY: Chest CT dated 08/30/2021. Chest x-ray dated 07/16/2023. TECHNIQUE: Following the IV administration of 114 cc of Optiray 320, CT angiogram of the chest was performed from the upper abdomen to the thoracic inlet utilizing the pulmonary embolus protocol. Images are reviewed in the axial, sagittal, and coronal planes. 3-D MIPS images are created and assessed. I V contrast was administered without complication. A dose lowering technique was utilized adhering to the principles of ALARA. CT DOSE: 387.72 mGy.cm FINDINGS: Thyroid: Normal in size and heterogeneous in attenuation. Thoracic aorta: There is atherosclerotic calcification of the thoracic aorta, which is normal in caliber and demonstrates standard 3-vessel arch anatomy. No dissection is seen. Pulmonary vasculature: The main pulmonary arteries are dilated suggesting pulmonary artery hypertension. There are no filling defects identified in main, lobar, or segmental pulmonary branches to suggest pulmonary embolus. Heart: The heart is enlarged and without pericardial effusion. The coronary arteries are densely calcified. Lungs and pleural spaces: There are small pleural effusions with dependent atelectasis. Intralobular septal thickening is seen at the lung bases. No airspace consolidation is seen typical for pneumonia. There are scattered calcified granulomas. The trachea and central airways appear clear. Mediastinum: An enlarged calcified subcarinal node is similar to previous. Additional calcified mediastinal lymph nodes are unchanged. [place]: There are calcified right hilar lymph nodes. No significant hilar lymphadenopathy is seen. Axillae: There is no axillary lymphadenopathy. Upper abdomen: Partially visualized upper abdominal viscera is within normal limits. Skeletal structures: The skeletal structures are markedly heterogeneous osteopenic. No clear destructive bony lesion is identified. Degenerative change is noted in the shoulders and spine. IMPRESSION: 1. There is no evidence of pulmonary embolus in the main, lobar, or segmental pulmonary arteries. 2. Cardiomegaly with evidence of fluid overload/congestive change. 3. Small pleural effusions with dependent atelectasis. 4. Additional findings as above. ACT 112: Negative or not required by law. Electronically signed by: Miguel Rivera M.D. 07/16/2023 4:57 PM Dictated: 07/16/231647 Transcribed: 07/16/231647 ECG Data Attestation: I personally reviewed and interpreted this ECG as follows: Additional Comments: EKG #1 at 1526: Atrial flutter with a ventricular rate of 108. QRS and QTc intervals within normal limits. No ST ovation or ST depression. EKG #2 at 1540: Atrial flutter with rate of 133. QRS [address] elevation or ST depression. EKG #3 at 1542 status post Cardizem 10 mg IV bolus: Atrial flutter with a rate of 99. QRS and QTc intervals within normal limits. No ST ovation or ST depression. [facility] Narrative 1527: The patient was evaluated in room C9. A complete history and physical exam was performed Cardiac monitoring: An order was placed for continuous cardiac monitoring. The monitor shows a rate of 110-130 with atrial fibrilation rhythm interpreted by me Patient found to be in atrial flutter with RVR. Large-bore IV access was ordered and IV fluids were started. Cardizem 10 mg IV push was given which improved the patient's ventricular rate. We will conduct cardiac panel as well as CT of the chest given that the patient has not been on any of her medications in over a year for her cardiac problems. 1713: Vital signs stable status post Cardizem bolus patient remains in atrial flutter rhythm however the ventricular rate is controlled. Labs are within normal limits with exception of a mild hyponatremia. Troponin negative. CTA of the chest negative for PE. Imaging does show cardiomegaly with cephalization. Patient is willing to be restarted on Western medications for her heart disease. Is thought that the patient would be better served to be admitted to the hospitalist service with cardiology on consult, echocardiogram given her cardiomegaly and cephalization, and have her sodium gently corrected rather than following up outpatient. Patient and family are in agreement with this plan. Patient will be admitted to the [facility] hospitalist team. Impression & Plan Atrial flutter with rapid ventricular response, Acute hyponatremia Critical Care Time Critical Care Time: Yes Total Critical Care Time: 51 I have personally spent greater than 51 minutes of critical care time in the direct management of this patient. This includes bedside care, interpretation of diagnostic studies, and testing, discussion with consultants, patient, and family members, and other required patient management activities. This 51 minutes is in excess of all separately billable procedures. Discharge Plan Visit Data Chief Complaint: Chest Pain ED Provider: Tung [place] Discharge Problem: Atrial flutter with rapid ventricular response, Acute hyponatremia Patient Disposition: Admitted As Inpatient Forms Stand Alone Forms: My [facility] Prescriptions Prescriptions: No Action aspirin [Jules Low Dose Aspirin] 81 mg Tablet,Delayed Release (Dr/Ec) 81 mg PO DAILY garlic Tablet 1,000 mg PO PC Blood Pressure Medication 1 tab PO DAILY Rx Instructions: Patient gets from a facility in [place]. She does not know the name of med. metoprolol tartrate 100 mg Tablet 100 mg PO BID Qty: 60 0RF amiodarone 200 mg Tablet 200 mg PO DAILY Qty: 30 0RF guaifenesin [Mucinex] 600 mg Tablet Extended Release 12hr 600 mg PO Q12 Qty: 14 0RF warfarin 5 mg tablet 5 mg PO DAILY Qty: 30 0RF metoprolol tartrate 50 mg 100 mg PO DAILY Qty: 0 0RF Referrals Referrals: PCP,NO [Primary Care Provider] -
[2023-07-16] MEDS ORDERED: OPTIRAY 320 500ml IV ONE (16:10)
[2023-07-16 16:14] LABS: BUN Creatinine Ratio 37.2 (10-20); Calcium 8.8 mg/dl (8.6-10.3); Creatinine Clr Calc Pharmacy 106.5 ml/min; Est GFR (African American) 113.7 ml/min; Est GFR (Non-African American) 98.1 ml/min; Magnesium 1.9 mg/dl (1.7-2.4); Potassium 4.1 mmol/L (3.5-5.1)
[2023-07-16 16:20] LABS: Troponin I High Sensitivity 8.7 pg/ml (0-14)
[2023-07-16 16:27] LABS: Partial Thromboplastin Time 27.6 Seconds (21.0-31.0); Prothrombin Time 11.1 Seconds (9.0-12.0)
--- NOTE | 2023-07-16 16:59 | CT Scan Report ---
CT ANGIOGRAM OF THE CHEST CLINICAL HISTORY: Atypical chest pain. Dyspnea. COMPARISON STUDY: Chest CT dated 08/30/2021. Chest x-ray dated 07/16/2023. TECHNIQUE: Following the IV administration of 114 cc of Optiray 320, CT angiogram of the chest was pe rformed from the upper abdomen to the thoracic inlet utilizing the pulmonary embolus protocol. Images are reviewed in the axial, sagittal, and coronal planes. 3-D MIPS images are created and assessed. I V contrast was administered without complication. A dose lowering technique was utilized adhering to the principles of ALARA. CT DOSE: 387.72 mGy.cm FINDINGS: Thyroid: Normal in size and heterogeneous in attenuation. Thoracic aorta: There is atherosclerotic calcification of the thoracic aorta, which is normal in elissa lesvia and demonstrates standard 3-vessel arch anatomy. No dissection is seen. Pulmonary vasculature: The main pulmonary arteries are dilated suggesting pulmonary artery hypertensi on. There are no filling defects identified in main, lobar, or segmental pulmonary branches to sugges t pulmonary embolus. Heart: The heart is enlarged and without pericardial effusion. The coronary arteries are densely calc ified. Lungs and pleural spaces: There are small pleural effusions with dependent atelectasis. Intralobular septal thickening is seen at the lung bases. No airspace consolidation is seen typical for pneumonia. There are scattered calcified granulomas. The trachea and central airways appear clear. Mediastinum: An enlarged calcified subcarinal node is similar to previous. Additional calcified media stinal lymph nodes are unchanged. [place]: There are calcified right hilar lymph nodes. No significant hilar lymphadenopathy is seen. Axillae: There is no axillary lymphadenopathy. Upper abdomen: Partially visualized upper abdominal viscera is within normal limits. Skeletal structures: The skeletal structures are markedly heterogeneous osteopenic. No clear destruct zach bony lesion is identified. Degenerative change is noted in the shoulders and spine. IMPRESSION: 1. There is no evidence of pulmonary embolus in the main, lobar, or segmental pulmonary arteries. 2. Cardiomegaly with evidence of fluid overload/congestive change. 3. Small pleural effusions with dependent atelectasis. 4. Additional findings as above. ACT 112: Negative or not required by law. Electronically signed by: Miguel Rivera M.D. 07/16/2023 4:57 PM
[2023-07-16] MEDS ORDERED: MAGNESIUM HYDROXIDE SUSP 30 ML UDC PO PRN (17:46)
[2023-07-16] MEDS ORDERED: ACETAMINOPHEN 325 MG TAB PO PRN (17:46)
[2023-07-16] MEDS ORDERED: ONDANSETRON INJ 2 MG/ML 2 ML VIAL IV PRN (17:46)
[2023-07-16] MEDS ORDERED: ALUMINUM/MAGNESIUM SUSP 30 ML UDC PO PRN (17:46)
[2023-07-16] MEDS ORDERED: POLYETHYLENE (MIRALAX) 17 GM PACK PO PRN (17:46)
--- NOTE | 2023-07-16 17:57 | History & Physical Report ---
Date of Service July 16, 2023 Assessment & Plan (1) Atrial flutter with rapid ventricular response: (2) Hyponatremia: (3) Hypertension: Plan Ms. Borrego is a 77 year old female that presents today with chest pain that started today that she reports was anterior chest pain that started around noon today. She was resting and not being active. She felt SOB with some lightheadedness at that time. Denies cough. She has never had this type of pain before. She took two baby aspirin prior to coming to the ED. She was given Nitro SL x2 via EMS with minimal relief. She was found to be in AF with RVR on arrival. She has a known history of Atrial fibrillation and was prescribed Amiodarone and Coumadin that was started two years ago but stopped all of her medications one year ago and started to take herbal remedies. She does report taking a baby aspirin at home. She was prescribed Metoprolol about 20 years ago, but no longer takes this medication. She has a known history of Atrial fibrillation and is prescribed Amiodarone and Coumadin but stopped all of her medications one year ago and started to take herbal remedies. She does report taking a baby aspirin at home. In the ED she was given Diltiazem 10 mg which improved her ventricular rate. Incidentally found to be hyponatremia 128 and given 1LNSB. CXR showed cardiomegaly with pulmonary vascular congestion and bibasilar L > R . No leukocytosis, Initial Troponin negative, otherwise electrolytes unremarkable. Last ECHO 08/2021: Normal LV wall motion, EF 60-65%, no valvular abnormalities. Known individual with atrial fibrillation that has not been compliant with taking any antiarrhythmics, beta-blockers, or anticoagulants for the past year and a half. Responded to IV Diltiazem in the ED with fluid resuscitation for hyponatremia. ECG QTc [address] changes in inferior leads. Will obtain ECHO, trend Troponin, start low dose Heparin gtt with bolus, notify Cardiology. Obtain repeat ECG and keep NPO until labs trend and cardiology evaluates. Atrial flutter with RVR: Known diagnosis of AF. ChadsVasc 4 Stopped betablocker, antiarrhythmic, and anticoagulation 1 year ago CXR Cardiomegaly with pulmonary vascular congestion. 2. Bibasilar consolidation, left greater than right. Correlate clinically for evidence of pneumonia/aspiration pneumonitis. Chest CTA negative for PE Was taking Amiodarone and Coumadin and stopped taking them last year; focusing on a more natural approach to her medication regimen. Troponin8.7; will trend Obtain new ECHO Most recent ECHO 08/2021: normal LV wall motion. EF 60-65 % Obtain ECG in AM Start low dose Heparin gtt Hypernatremia/Hyponatremia: Acute uncontrolled Serum sodium 128; received 1LNSB in ED Check serum sodium in AM Check Serum osmoloality and urine sodium HTN: Chronic stable Takes herbal medication supplements Stopped taking Metoprolol years ago Disposition: PCP: None; follows with natural provider in the [facility] Code Status: Full Code VTE Prophylaxis: Heparin gtt I spent a total of 88 minutes coordinating, documenting, and providing care for this patient excluding time spent in the performance of separately billed services. All of the aforementioned completed while collaborating with the assigned attending physician for a full treatment plan. Please see their addendum for further details. History of Present Illness Chief Complaint: AF RVR Primary Care Provider: NO PCP Ms. Borrego is a 77 year old female that presents today with chest pain that started today that she reports was anterior chest pain that started around noon today. She was resting and not being active. She felt SOB with some lightheadedness at that time. Denies cough. She has never had this type of pain before. She took two baby aspirin prior to coming to the ED. She was given Nitro SL x2 via EMS. She was found to be in AF with RVR on arrival. She has a known history of Atrial fibrillation and was prescribed Amiodarone and Coumadin that was started two years ago but stopped all of her medications one year ago and started to take herbal remedies. She does report taking a baby aspirin at home. She was prescribed Metoprolol about 20 years ago, but no longer takes this medication. In the ED she was given Diltiazem 10 mg which improved her ventricular rate. Incidentally found to be hyponatremia 128. CXR showed cardiomegaly with pulmonary vascular congestion and bibasilar L > R . No leukocytosis, Initial Troponin negative, Sodium 128; otherwise electrolytes unremarkable. Last ECHO 08/2021: Normal LV wall motion, EF 60-65%, no valvular abnormalities. Known individual with atrial fibrillation presents with anterior chest pain that started at noon today. She received Nitro SL x2 with minimal relief. She has not been compliant with taking any antiarrhythmics, beta-blockers, or anticoagulants for the past year. Responded to IV Diltiazem in the ED with fluid resuscitation for hyponatremia. ECG QTc [address] changes. Pt denies DUGGAN, dizziness, SOB, visual or auditory changes, abdominal pain or tenderness, recent falls or trauma. Has concerns with going home on Coumadin and Amiodarone; due to frequent testing and she did not feel well taking the Amiodarone that she would like passed on to Cardiology. Patient will be admitted for further evaluation and management. Please see A/P for further details. Allergies Allergy/AdvReac Type Severity Reaction Status Date / Time No Known Allergies Allergy Unverified 07/16/23 17:23 Home Medications Medication Instructions Recorded Confirmed Type aspirin 81 mg tablet,delayed 81 mg PO QAM 08/30/21 07/16/23 History release (Jules Low Dose Aspirin) Past Med/Surg History Medical History Atrial fibrillation Hypertension Surgical History H/O section Family History Other Cancer Coronary heart disease Social History Smoking Status: Never smoker Hx Alcohol Use: No Hx Substance Use: No Preferred Language: Greenlandic Communication Ability: Effective Beliefs That Will Affect Care: Roman Catholic marital status: Current Living Situation: Family How many Children do You have: 8 Feels Safe at Home: Yes Assistive Devices: Glasses Review of Systems Review of Systems: Neuro: (-) Falls, trauma, slurred speech HEENT: (-) DUGGAN, dizziness, dysphagia, visual or auditory changes CV: (+)anterior CP, palpitations, swelling Resp: (-) SOB GI: (-) appetite changes, N/V/D, bowel changes : (-) urinary changes Skin: (-) rashes Psych: (-) anxiety, depression Physical Exam Physical Exam: See Dr. Hinojosa's addendum for physical examination Results & Data Results & Data Vital Signs (Past 12 Hours) Vital Signs Temp Pulse Resp BP Pulse Ox O2 Del Method 07/16/23 17:20 95 H 18 94 Room Air 07/16/23 17:10 79 22 95 Room Air 07/16/23 16:40 84 19 95 Room Air 07/16/23 16:30 83 18 150/88 H 95 Room Air 07/16/23 16:18 90 19 149/82 H 95 Room Air 07/16/23 16:00 103 H 22 141/96 H 95 Room Air 07/16/23 15:50 97 H 23 145/81 H 94 Room Air 07/16/23 15:42 94 H 19 130/83 95 Room Air 07/16/23 15:59 130 H 07/16/23 15:22 Room Air 07/16/23 15:22 36.7 C 133 H 22 157/86 H 100 Room Air Laboratory Results Short CBC 07/16/23 Range/Units Unknown WBC 8.43 (4.8-10.8) K/ul Hgb 12.1 (12.0-16.0) g/dl Hct 35.5 L (37.0-47.0) % Plt Count 152 (130-400) K/uL BMP 07/16/23 Unknown Sodium 127 L Potassium 4.1 Chloride 96 L Carbon Dioxide 25 BUN 16 Creatinine 0.43 L Glucose 151 H Calcium 8.8 Diagnostic Findings Chest X-Ray 07/16/23 15:28 SINGLE VIEW CHEST CLINICAL HISTORY: Atypical chest pain FINDINGS: An AP, portable, upright chest radiograph is compared to study dated 09/01/2021 and correlated with chest CT dated 08/30/2021. The heart is enlarged and noting atherosclerotic calcification of the thoracic aorta. There is pulmonary vascular congestion. Airspace consolidation is seen at both lung bases. No large pleural effusion or pneumothorax is seen. There are scattered calcified granulomas. The skeletal structures are osteopenic. The bony thorax is grossly intact. IMPRESSION: 1. Cardiomegaly with pulmonary vascular congestion. 2. Bibasilar consolidation, left greater than right. Correlate clinically for evidence of pneumonia/aspiration pneumonitis. Radiographic follow-up to resolution is recommended. ACT 112: Negative or not required by law. Electronically signed by: Miguel Rivera M.D. 07/16/2023 4:03 PM Chest CTA 07/16/23 15:32 CT ANGIOGRAM OF THE CHEST CLINICAL HISTORY: Atypical chest pain. Dyspnea. COMPARISON STUDY: Chest CT dated 08/30/2021. Chest x-ray dated 07/16/2023. TECHNIQUE: Following the IV administration of 114 cc of Optiray 320, CT angiogram of the chest was performed from the upper abdomen to the thoracic inlet utilizing the pulmonary embolus protocol. Images are reviewed in the axial, sagittal, and coronal planes. 3-D MIPS images are created and assessed. IV contrast was administered without complication. A dose lowering technique was utilized adhering to the principles of ALARA. CT DOSE: 387.72 mGy.cm FINDINGS: Thyroid: Normal in size and heterogeneous in attenuation. Thoracic aorta: There is atherosclerotic calcification of the thoracic aorta, which is normal in caliber and demonstrates standard 3-vessel arch anatomy. No dissection is seen. Pulmonary vasculature: The main pulmonary arteries are dilated suggesting pulmonary artery hypertension. There are no filling defects identified in main, lobar, or segmental pulmonary branches to suggest pulmonary embolus. Heart: The heart is enlarged and without pericardial effusion. The coronary arteries are densely calcified. Lungs and pleural spaces: There are small pleural effusions with dependent atelectasis. Intralobular septal thickening is seen at the lung bases. No airspace consolidation is seen typical for pneumonia. There are scattered calcified granulomas. The trachea and central airways appear clear. Mediastinum: An enlarged calcified subcarinal node is similar to previous. Additional calcified mediastinal lymph nodes are unchanged. [place]: There are calcified right hilar lymph nodes. No significant hilar lymphadenopathy is seen. Axillae: There is no axillary lymphadenopathy. Upper abdomen: Partially visualized upper abdominal viscera is within normal limits. Skeletal structures: The skeletal structures are markedly heterogeneous osteopenic. No clear destructive bony lesion is identified. Degenerative change is noted in the shoulders and spine. IMPRESSION: 1. There is no evidence of pulmonary embolus in the main, lobar, or segmental pulmonary arteries. 2. Cardiomegaly with evidence of fluid overload/congestive change. 3. Small pleural effusions with dependent atelectasis. 4. Additional findings as above. ACT 112: Negative or not required by law. Electronically signed by: Miguel Rivera M.D. 07/16/2023 4:57 PM Code Status & VTE Plan Code Status Full Code in the event of cardiac or respiratory arrest VTE Prophylaxis Plan VTE Prophylaxis will be ordered: Yes Supervising Physician Co-Signing Physician Notes 77-year-old woman with history of A-fib, was previously on metoprolol, amiodarone and Coumadin but has stopped about a year ago and currently only on aspirin and some supplements who presented with chest pain that started at about noon. Patient reported that she was just resting when the chest pain started described as pressure in the upper part of the central chest associated with some mild shortness of breath at the time. Denied any nausea, vomiting or diaphoresis. Took 2 baby aspirin and EMS was called. Reported getting 2 nitro which may have improved the chest pressure a little bit. Reports chest pressure feels like pulled muscle at this time but milder. Physical exam General: Elderly woman in no distress Eyes: PERRL, conjunctivae normal, not pale, anicteric sclerae, EOM intact bilaterally ENMT: External ear and nose normal, oropharynx normal Respiratory: Normal respiratory effort, no respiratory distress, lungs clear to auscultation, no crackles and no wheezes Cardiovascular: RRR S1 S2 Chest (Breasts): No chest wall tenderness Gastrointestinal (Abdomen): Abdomen is not distended, soft, non-tender to palpation, no guarding, no palpable hepatosplenomegaly, normal bowel sounds Musculoskeletal: No pedal edema Neurologic: Alert and oriented x 3, No focal weakness, sensation grossly intact Psychiatric: Alert and oriented x 3, euthymic affect EKG showed Aflutter with RVR Some ST T changes that are nondiagnostic in view of rapid rate Initial trop was normal Labs notable for sodium of 127, chloride of 96 Aflutter with RVR Start heparin drip. Will need anticoagulation going forward. Patient and family are open to this but will prefer something different from coumadin Trend trop. Continue tele monitor Keep NPO PMN Discussed with Dr Prosper Villareal metoprolol tartrate. Family reported they will not want amiodarone if possible due to possible side effects in the past Get serum osm, uosm Gene to assess hyponatremia.
[2023-07-16] MEDS ORDERED: Heparin IV Adult Wt-Based Low-Dose WITH Bolus Protocol IV SCH (18:46)
[2023-07-16] MEDS ORDERED: HEPARIN SOD (PORCINE) 1000 UNIT/ML IV ONE (19:15)
[2023-07-16] MEDS: HEPARIN SODIUM/DEXTROSE 25,000 UNITS/500 ML BAG IV SCH (19:19)
[2023-07-16 19:42] LABS: Troponin I High Sensitivity 10.3 pg/ml (0-14)
[2023-07-16 19:52] LABS: Thyroid Stimulating Hormone 1.01 uIu/ml (0.300-4.500)
[2023-07-16] MEDS: METOPROLOL TARTRATE 25 MG TAB PO SCH (22:24)
[2023-07-17 02:53] LABS: Partial Thromboplastin Ratio 1.8
[2023-07-17 07:15] LABS: Hematocrit (blood only) 32.3 % (37.0-47.0); Hemoglobin 11.2 g/dl (12.0-16.0); Mean Corpuscular Hemoglobin 30.4 pg (25.0-34.0); Mean Corpuscular Hgb Conc 34.7 g/dL (32.0-36.0); Mean Corpuscular Volume 87.8 fL (80.0-100.0); Mean Platelet Volume 9.7 fL (9.4-12.4); Platelet Count 132 K/uL (130-400); RDW Coefficient of Variation 13.7 % (11.5-14.5); RDW Standard Deviation 43.8 fL (36.4-46.3); Red Blood Count 3.68 M/uL (4.20-5.40); White Blood Count 6.17 K/ul (4.8-10.8)
[2023-07-17 07:29] LABS: Albumin Globulin Ratio 1.9 (0.9-2); Albumin Level 3.7 gm/dl (3.4-5.0); BUN Creatinine Ratio 34.3 (10-20); Bilirubin,Total 2.1 mg/dl (0.2-1.0); Calcium 8.4 mg/dl (8.6-10.3); Chol HDL Ratio 2.6 (0-5); Est GFR (African American) 121.7 ml/min; Globulin 1.9 gm/dl (2.5-4.0); Potassium 4.1 mmol/L (3.5-5.1); Total Protein 5.6 gm/dl (6.0-8.3)
[2023-07-17 07:52] LABS: Estimated Average Glucose 123 mg/dl; Hemoglobin A1C 5.9 % (4.5-5.6)
[2023-07-17 07:57] LABS: Partial Thromboplastin Ratio 1.5
[2023-07-17 08:14] LABS: Partial Thromboplastin Time 42.8 Seconds (21.0-31.0)
[2023-07-17] MEDS: METOPROLOL TARTRATE 25 MG TAB PO SCH ×2 (08:14→20:41)
[2023-07-17] MEDS: ASPIRIN 81 MG ECTAB PO SCH (08:14)
--- NOTE | 2023-07-17 08:31 | Cardiology Consultation ---
Date of Consultation July 17, 2023 Assessment & Plan (1) Atrial flutter with rapid ventricular response: (2) Hypertension: Plan IMPRESSION: 77 year old [facility] female with a past medical history of PAF/Flutter. Presents with recurrent AFlutter- now asymptomatic with improvement in rates. Echo 07/17: LVEF 60-65% without WMA. Mild concentric LVH. Moderately enlarged LA. Mild MR. No pulm HTN PLAN: Atrial Flutter: Increase metoprolol tartrate to 25 mg twice daily. Continue IV heparin for stroke prevention-- patient agreeable to anticoagulation but would like to avoid Coumadin due to frequent blood draws. I will reach out to our outpatient pharmacist regarding cost effective options for DOACs Discussed rate control vs rhythm management. Both patient and daughter would like to focus on rate control at this time since patient is feeling well- they are not interested in DCCV and/or flutter ablation at this time. Okay to eat- diet order placed. Overall patient appears euvolemic on exam. Not requiring diuretic therapy at this time. Hypertension: BP well controlled- no changes needed at this time. Case discussed with Dr. Cheng-- will follow. Supervising Physician Co-Signing Physician Notes Patient was seen and personally examined, chart and records reviewed. 77-year-old female with persistent atrial fibrillation flutter initially diagnosed 2020. Serially discontinued antiarrhythmic and heart rate control medications as well as anticoagulation as an outpatient due to intolerances of medications and difficulties obtaining laboratory studies Presents now with elevated heart rate response and dyspnea, hyponatremia on laboratory studies. EKGs with atrial flutter with rapid ventricular response rates have controlled with initiation of beta-andrez therapy we will continue. Discussed anticoagulation currently on IV heparin. Does not wish to resume warfarin we will assess for feasibility of anticoagulation with Eliquis Follow sodiums closely suspect patient would benefit from low-dose diuretic initially. History of Present Illness Reason for Consultation: Atrial flutter with RVR Requesting Physician: Phillip hargrove Attending Physician: Roni Borja MD History of Present Illness Very pleasant 77-year-old obvious female who is originally from [facility] moving to [facility] approximately 10 years ago. follows with "comfort care" a [facility] in [place]. Patient has a history of atrial fibrillation dating back approximately 20 years. Prior management included the use of metoprolol and anticoagulation with Coumadin--patient self discontinued. In August 2021 patient presented with palpitation shortness of breath and cough. Evaluation revealed bilateral community acquired pneumonia, hyponatremia, and patient was in atrial fibrillation/flutter with RVR. During this admission patient was placed on amiodarone 200 mg daily, metoprolol tartrate 100 mg twice daily, and Coumadin was restarted. Again at some point after returning home medications were self discontinued. Noted that she did not feel well on amiodarone. On 07/16/2023 patient presented to the ED with chest discomfort at rest with shortness of breath and lightheadedness. Patient was found to be in atrial flutter with RVR. Was given IV diltiazem with improvement in heart rates. Heparin drip started for stroke prevention. Labs: Stable renal function, hyponatremia (127>>128), stable CBC, high- sensitivity troponin negative x3, BNP minimally elevated at 280. Echo: LVEF 60-65% without WMA. Mild concentric LVH. Moderately enlarged LA. Mild MR. No pulm HTN EKG this am: AFLUTTER 80s Tele: Atrial flutter 70-80s Upon entrance into the room patient resting comfortably in bed. Daughter, Leyla, at bedside. Notes that her palpitations and chest heaviness has improved since heart rates have become controlled. No lightheadedness or dizziness. No SOB, orthopnea or PND. Past medical history: History of paroxysmal atrial fibrillation/flutter, diagnosed initially in her 50s. [id number] score of 5 (age, female, HTN and observed aortic plaque) Hypertension Family History: Positive for CAD. Social History: Nonsmoker. No alcohol. No substance abuse. [facility]. Lives in [place], originally from [place], [place]. Allergies Allergy/AdvReac Type Severity Reaction Status Date / Time No Known Allergies Allergy Unverified 07/16/23 17:23 Home Medications Medication Instructions Recorded Confirmed Type aspirin 81 mg tablet,delayed 81 mg PO QAM 08/30/21 07/16/23 History release (Jules Low Dose Aspirin) Patient History Medical History Atrial fibrillation Hypertension Surgical History H/O section Family History Other Cancer Coronary heart disease Social History Smoking Status: Never smoker Second Hand Exposure: No; Do You Dip or Chew Tobacco: No; Hx Alcohol Use: No Hx Substance Use: No Preferred Language: Mohawk Communication Ability: Effective Swing Driver Required: No Beliefs That Will Affect Care: None and Spiritual marital status: Current Living Situation: Spouse and Family How many Children do You have: 8 Other Information That Helps Us Care for You: No Feels Safe at Home: Yes Safety Concerns: Feels Safe At This Time Assistive Devices: None Review of Systems Review of Systems: All systems reviewed & are unremarkable except as noted in HPI & below Physical Exam Constitutional: WD/WN, vitals as above Eyes: PERRL, conjunctivae normal, anicteric sclerae Neck: normal visual inspection and trachea midline Respiratory: normal respiratory effort, lungs clear to auscultation Cardiovascular: Rate/Rhythm: regular rate and + irregularly irregular Heart Sounds: normal S1, normal S2 and + murmur (+soft systolic murmur) Vessels: no JVD Extremities: no edema Gastrointestinal (Abdomen): normal bowel sounds, soft, nontender, no hepatosplenomegaly Skin: no rashes, warm and dry Psychiatric: A+Ox3, euthymic affect Results & Data Vital Signs (Past 12 Hours) Vital Signs Temp Pulse Pulse Resp BP BP Pulse Ox 07/17/23 07:14 36.8 C 60 18 123/56 L 93 07/17/23 02:58 37.3 C 79 18 131/64 93 07/16/23 23:59 87 07/16/23 23:19 37.1 C 86 18 145/81 H 94 07/16/23 22:15 37 C 86 20 153/74 H 94 07/16/23 22:05 93 H 07/16/23 20:44 85 17 161/92 H 95 07/16/23 20:45 O2 Del Method 07/17/23 07:14 Room Air 07/17/23 02:58 Room Air 07/16/23 23:59 07/16/23 23:19 Room Air 07/16/23 22:15 Room Air 07/16/23 22:05 07/16/23 20:44 Room Air 07/16/23 20:45 Room Air Laboratory Results Cardiac Enzymes 07/16/23 07/16/23 07/16/23 Range/Units 19:03 19:03 21:12 AST (13-39) U/L Troponin I High Sens 10.3 10.0 (0-14) pg/ml B-Natriuretic Peptide 280 H (0-100) pg/ml 07/16/23 07/17/23 Range/Units Unknown 06:11 AST 22 (13-39) U/L Troponin I High Sens 8.7 (0-14) pg/ml B-Natriuretic Peptide (0-100) pg/ml Coagulation 07/16/23 07/16/23 07/17/23 Range/Units 19:03 Unknown 01:12 PT 11.1 (9.0-12.0) Seconds APTT 27.6 52.0 H* (21.0-31.0) Seconds B-Natriuretic Peptide 280 H (0-100) pg/ml 07/17/23 Range/Units 06:11 PT (9.0-12.0) Seconds APTT 42.8 H* (21.0-31.0) Seconds B-Natriuretic Peptide (0-100) pg/ml Lipids 07/17/23 Range/Units 06:11 Triglycerides 31 (0-150) mg/dl Cholesterol 162 (0-200) mg/dl HDL Cholesterol 62 mg/dl Cholesterol/HDL Ratio 2.6 (0-5) CBC 07/16/23 07/17/23 Range/Units Unknown 06:11 WBC 8.43 6.17 (4.8-10.8) K/ul RBC 3.98 L 3.68 L (4.20-5.40) M/uL Hgb 12.1 11.2 L (12.0-16.0) g/dl Hct 35.5 L 32.3 L (37.0-47.0) % Plt Count 152 132 (130-400) K/uL Neut # (Auto) 6.76 H (1.40-6.50) K/uL Lymph # (Auto) 0.56 L (1.20-3.40) K/uL Morrison # (Auto) 1.01 H (0.11-0.59) K/uL Eos # (Auto) 0.02 (0.00-0.50) K/uL Baso # (Auto) 0.05 (0.00-0.20) K/uL Comprehensive Metabolic Panel 07/16/23 07/17/23 Range/Units Unknown 06:11 Sodium 127 L 128 L (136-145) mmol/L Potassium 4.1 4.1 (3.5-5.1) mmol/L Chloride 96 L 99 (98-107) mmol/L Carbon Dioxide 25 23 (21-32) mmol/L BUN 16 12 (6-23) mg/dl Creatinine 0.43 L 0.35 L (0.6-1.2) mg/dl Glucose 151 H 110 H (70-99(Fasting)) mg/dl Calcium 8.8 8.4 L (8.6-10.3) mg/dl AST 22 (13-39) U/L ALT 27 (7-52) U/L Alkaline Phosphatase 122 H (34-104) U/L Total Protein 5.6 L (6.0-8.3) gm/dl Albumin 3.7 (3.4-5.0) gm/dl Intake and Output 07/16/23 07/17/23 07/17/23 22:59 06:59 14:59 Intake Total 1030 / 1153.5 123.5 / 1153.5 53.25 / 53.25 Output Total 400 / 400 Balance 1030 / 753.5 -276.5 / 753.5 53.25 / 53.25 Intake: IV 1000 / 1123.5 123.5 / 1123.5 53.25 / 53.25 Heparin Sodium/Dextrose 25,000 123.5 / 123.5 53.25 / 53.25 units In 500 ml @ 750 UNITS/HR 15 mls/hr IV .Q24H KEANU Rx#: [id number] Sodium Chloride 0.9% 1,000 ml @ 1000 / 1000 999 mls/hr IV .Q1H1M STA Rx#: [id number] Oral 30 / 30 Output: Urine 400 / 400 Other: Other Intake Source npo # Unmeasured Voids 1 Weight 59.3 kg 59.3 kg Weight Measurement Method Built in [facility] Built in [facility]
[2023-07-17] MEDS ORDERED: METOPROLOL TARTRATE 25 MG TAB PO ONE (11:15)
--- NOTE | 2023-07-17 12:11 | Hospitalist Progress Note ---
Date of Service July 17, 2023 Assessment & Plan (1) Atrial flutter with rapid ventricular response: (2) Hyponatremia: (3) Hypertension: Plan 77 year old female presented 07/16 with chest pain that started on the day of arrival that she reports was anterior chest pain that started around noon. She was resting and not being active. She felt SOB with some lightheadedness at that time. Denies cough. She was given Nitro SL x2 via EMS with minimal relief. She was found to be in AF with RVR on arrival. She has a known history of Atrial fibrillation and was prescribed Amiodarone and Coumadin that was started two years ago but stopped all of her medications one year ago and started to take herbal remedies. She does report taking a baby aspirin at home. She was prescribed Metoprolol about 20 years ago, but no longer takes this medication. In the ED she was given Diltiazem 10 mg which improved her ventricular rate. Responded to it. She is being managed for the following: Atrial flutter with RVR: Known diagnosis of AF. ChadsVasc 4 Stopped betablocker, antiarrhythmic, and anticoagulation 1 year ago. Resorted to herbal remedies. CXR Cardiomegaly with pulmonary vascular congestion. 2. Bibasilar consolidation, left greater than right. Last ECHO 08/2021: Normal LV wall motion, EF 60-65%, no valvular abnormalities. Patient reports baseline cough, no new worsening of cough. Chest CTA negative for PE Troponin x2 negative. EKG with a flutter with AV block. Echo with EF of 60 to 65%, LV is normal in size/systolic function/wall motion. Mild concentric LVH noted. Continue with heparin GTT, aspirin, metoprolol Cardiology on board, appreciate recommendation. Rate under control. Hyponatremia: Admitting serum sodium 128; received 1LNSB in ED Serum osmolality 269, urine osmolality 567 and urine sodium 89 Likely SIADH, free fluid restriction of 1500 mL, increase protein content in diet, BMP in a.m. Low Na diet. HTN: Chronic stable Takes herbal medication supplements Stopped taking Metoprolol years ago c/w w/ meds a above, fairly under control. Disposition: PCP: None; follows with natural provider in the [facility] Code Status: Full Code VTE Prophylaxis: Heparin gtt Admission and Anticipated Discharge Date Admission Date: July 16, 2023 Subjective Patient was seen and examined at bedside. Patient was lying in bed, on room air, resting comfortably, not in any acute distress. Patient reports chest heaviness getting better since he came in. Patient denies headache or dizziness or sore throat or cough. Denies other ROS. Physical Exam Physical Exam: GENERAL: Alert and oriented x3. NAD, on RA. HEENT: No pallor, no icterus. Pupils equal, round and reactive to light. Oral mucosa moist. NECK: No JVD, no neck masses. HEART: S1 and S2 heard. irregular rate and rhythm. No murmur, no gallop. RESPIRATORY SYSTEM: Normal AP diameter. No accessory muscle use. No wheezing, no crackles. ABDOMEN: Soft, bowel sounds present, nontender, no distention. CENTRAL NERVOUS SYSTEM: No facial droop. Speech is clear. Obeys simple commands. Moves extremities. EXTREMITIES: No edema, no erythema seen. Results & Data Results & Data Vital Signs (Past 12 Hours) Vital Signs Temp Pulse Pulse Resp BP Pulse Ox O2 Del Method 07/17/23 11:19 36.9 C 69 18 135/78 95 Room Air 07/17/23 07:14 36.8 C 60 18 123/56 L 93 Room Air 07/17/23 02:58 37.3 C 79 18 131/64 93 Room Air 07/16/23 23:59 87
--- NOTE | 2023-07-17 12:18 | Electrocardiogram Report ---
Test Reason : Blood Pressure : / mmHG Vent. Rate : 108 BPM Atrial Rate : 271 BPM P-R Int : 000 ms QRS Dur : 100 ms QT Int : 368 ms P-R-T Axes : 000 099 052 degrees QTc Int : 493 ms Atrial flutter with variable A-V block Rightward axis Cannot rule out Inferior infarct (cited on or before 31-AUG-2021) Abnormal ECG When compared with ECG of 31-AUG-2021 05:41, No significant change was found Confirmed by Trip Easley ([id number]) on 07/17/2023 12:17:37 PM Referred By: REFERRED SELF Confirmed By:Trip Easley
--- NOTE | 2023-07-17 12:19 | Electrocardiogram Report ---
Test Reason : Blood Pressure : / mmHG Vent. Rate : 133 BPM Atrial Rate : 266 BPM P-R Int : 000 ms QRS Dur : 076 ms QT Int : 320 ms P-R-T Axes : 257 097 -74 degrees QTc Int : 476 ms Atrial flutter with 2:1 A-V conduction Rightward axis Abnormal ECG When compared with ECG of 16-JUL-2023 15:26, (unconfirmed) No significant change Confirmed by Trip Easley ([id number]) on 07/17/2023 12:19:32 PM Referred By: REFERRED SELF Confirmed By:Trip Easley
--- NOTE | 2023-07-17 12:19 | Electrocardiogram Report ---
Test Reason : Blood Pressure : / mmHG Vent. Rate : 099 BPM Atrial Rate : 267 BPM P-R Int : 000 ms QRS Dur : 080 ms QT Int : 342 ms P-R-T Axes : 000 092 063 degrees QTc Int : 438 ms Atrial flutter with variable A-V block Rightward axis Nonspecific ST and T wave abnormality Abnormal ECG When compared with ECG of 16-JUL-2023 15:40, (unconfirmed) No significant change Confirmed by Trip Easley ([id number]) on 07/17/2023 12:19:07 PM Referred By: REFERRED SELF Confirmed By:Trip Easley
--- NOTE | 2023-07-17 12:31 | Electrocardiogram Report ---
Test Reason : Blood Pressure : / mmHG Vent. Rate : 085 BPM Atrial Rate : 255 BPM P-R Int : 000 ms QRS Dur : 074 ms QT Int : 376 ms P-R-T Axes : 233 094 075 degrees QTc Int : 447 ms Atrial flutter with variable A-V block Rightward axis Abnormal ECG When compared with ECG of 16-JUL-2023 15:42, (unconfirmed) ST no longer elevated in Inferior leads ST now depressed in Anterior leads Confirmed by Trip Easley ([id number]) on 07/17/2023 12:31:37 PM Referred By: REFERRED SELF Confirmed By:Trip Easley
--- NOTE | 2023-07-17 12:39 | Electrocardiogram Report ---
Test Reason : Blood Pressure : / mmHG Vent. Rate : 086 BPM Atrial Rate : 250 BPM P-R Int : 000 ms QRS Dur : 088 ms QT Int : 394 ms P-R-T Axes : 000 091 064 degrees QTc Int : 471 ms Atrial flutter with variable A-V block Rightward axis Nonspecific ST and T wave abnormality Abnormal ECG When compared with ECG of 16-JUL-2023 22:54, (unconfirmed) No significant change Confirmed by Trip Easley ([id number]) on 07/17/2023 12:39:06 PM Referred By: REFERRED SELF Confirmed By:Trip Easley
[2023-07-18] MEDS: HEPARIN SODIUM/DEXTROSE 25,000 UNITS/500 ML BAG IV SCH (03:39)
[2023-07-18 06:23] LABS: Hematocrit (blood only) 33.3 % (37.0-47.0); Hemoglobin 11.5 g/dl (12.0-16.0); Mean Corpuscular Hemoglobin 30.5 pg (25.0-34.0); Mean Corpuscular Hgb Conc 34.5 g/dL (32.0-36.0); Mean Corpuscular Volume 88.3 fL (80.0-100.0); Mean Platelet Volume 9.7 fL (9.4-12.4); Platelet Count 143 K/uL (130-400); RDW Coefficient of Variation 13.8 % (11.5-14.5); RDW Standard Deviation 44.2 fL (36.4-46.3); Red Blood Count 3.77 M/uL (4.20-5.40); White Blood Count 5.08 K/ul (4.8-10.8)
[2023-07-18 06:50] LABS: BUN Creatinine Ratio 30.8 (10-20); Calcium 8.4 mg/dl (8.6-10.3); Creatinine Clr Calc Pharmacy 108.6 ml/min; Est GFR (African American) 117.4 ml/min; Est GFR (Non-African American) 101.3 ml/min; Magnesium 1.8 mg/dl (1.7-2.4); Partial Thromboplastin Ratio 1.3; Partial Thromboplastin Time 37.9 Seconds (21.0-31.0); Phosphorus 2.4 mg/dl (2.5-4.9); Potassium 3.8 mmol/L (3.5-5.1)
[2023-07-18] MEDS: METOPROLOL TARTRATE 25 MG TAB PO SCH (07:29)
[2023-07-18] MEDS: ASPIRIN 81 MG ECTAB PO SCH (07:29)
--- NOTE | 2023-07-18 08:28 | Cardiology Progress Note ---
Date of Service July 18, 2023 Assessment & Plan (1) Atrial flutter with rapid ventricular response: (2) Hypertension: Plan IMPRESSION: 77 year old [employer] female with a past medical history of PAF/Flutter. Presents with recurrent AFlutter- now asymptomatic with improvement in rates. Echo 07/17: LVEF 60-65% without WMA. Mild concentric LVH. Moderately enlarged LA. Mild MR. No pulm HTN PLAN: Atrial Flutter: Continue metoprolol tartrate to 25 mg twice daily. Transition Heparin to Eliquis 5 mg BID-- spoke with outpatient pharmacist. Patient would qualify for cost assistance through [employer])-- application form faxed to [facility] for patient to fill out. Personally spoke to Case Management, they are aware they will need to assist her with filling this form out. Patient will need to have form filled out and faxed along with proof of income. Will give patient a one month supply free Eliquis card to get her started. Discussed rate control vs rhythm management. Both patient and daughter would like to focus on rate control at this time since patient is feeling well- they are not interested in DCCV and/or flutter ablation at this time. Overall patient appears euvolemic on exam. Not requiring diuretic therapy at this time. Hypertension: BP well controlled- no changes needed at this time. Case discussed with Dr. Cheng-- okay for discharge from a cardiology standpoint. Will arrange for close follow up. Admission and Anticipated Discharge Date Admission Date: July 16, 2023 Supervising Physician Co-Signing Physician Notes Patient seen, chart reviewed Plan as well outlined above Chronic/persistent A-fib flutter with elevated ventricular sponsor rate now responsive to medical therapies. Rate controlled. We will plan on rate control and anticoagulation management Patient does warrant chronic anticoagulation with goals to make Eliquis financially feasible. Does not desire warfarin Subjective 77-year-old [employer] female with persistent atrial fibrillation flutter initially diagnosed 2020. Serially discontinued antiarrhythmic and heart rate control medications as well as anticoagulation as an outpatient due to intolerances of medications and difficulties obtaining laboratory studies Presents now with elevated heart rate response and dyspnea, hyponatremia on laboratory studies. EKGs with atrial flutter with rapid ventricular response rates have controlled with initiation of beta-andrez therapy. IV heparin initiated for stroke prevention. Echo: LVEF 60-65% without WMA. Mild concentric LVH. Moderately enlarged LA. Mild MR. No pulm HTN 07/18: Tele: Atrial flutter 70-80s Upon entrance into the room patient resting comfortably in bed. Daughter, Leyla, at bedside. Notes that her palpitations and chest heaviness has improved since heart rates have become controlled. No lightheadedness or dizziness. No SOB, orthopnea or PND. Review of Systems Review of Systems: All systems reviewed & are unremarkable except as noted in HPI & below Physical Exam Constitutional: WD/WN, vitals as above Eyes: PERRL, conjunctivae normal, anicteric sclerae Neck: normal visual inspection and trachea midline Respiratory: normal respiratory effort, lungs clear to auscultation Cardiovascular: Rate/Rhythm: regular rate and + irregularly irregular Heart Sounds: normal S1, normal S2 and + murmur (+soft systolic murmur) Vessels: no JVD Extremities: no edema Gastrointestinal (Abdomen): normal bowel sounds, soft, nontender, no hepatosplenomegaly Skin: no rashes, warm and dry Psychiatric: A+Ox3, euthymic affect Results & Data Vital Signs (Past 12 Hours) Vital Signs Temp Pulse Resp BP Pulse Ox O2 Del Method 07/18/23 08:14 36.9 C 83 18 150/76 H 94 Room Air 07/18/23 03:47 37.0 C 73 16 135/80 95 Room Air 07/18/23 00:02 36.7 C 72 18 135/70 93 Room Air Laboratory Results Coagulation 07/18/23 Range/Units 05:40 APTT 37.9 H (21.0-31.0) Seconds CBC 07/18/23 Range/Units 05:40 WBC 5.08 (4.8-10.8) K/ul RBC 3.77 L (4.20-5.40) M/uL Hgb 11.5 L (12.0-16.0) g/dl Hct 33.3 L (37.0-47.0) % Plt Count 143 (130-400) K/uL Comprehensive Metabolic Panel 07/18/23 Range/Units 05:40 Sodium 133 L (136-145) mmol/L Potassium 3.8 (3.5-5.1) mmol/L Chloride 103 (98-107) mmol/L Carbon Dioxide 24 (21-32) mmol/L BUN 12 (6-23) mg/dl Creatinine 0.39 L (0.6-1.2) mg/dl Glucose 103 H (70-99(Fasting)) mg/dl Calcium 8.4 L (8.6-10.3) mg/dl Intake and Output 07/17/23 07/18/23 07/18/23 22:59 06:59 14:59 Intake Total 700 / 1208.75 455.50 / 1208.75 10. / .25 Output Total 300 / 625 Balance 400 / 583.75 455.50 / 583.75 10. / 10.25 Intake: IV 355.50 / 408.75 10.25 / 10.25 Heparin Sodium/Dextrose 25,000 355.50 / 408.75 10.25 / 10.25 units In 500 ml @ 750 UNITS/HR 15 mls/hr IV .Q24H [facility] Rx#: [id number] Oral 700 / 800 100 / 800 Output: Urine 300 / 625 Other: # Unmeasured Voids 1 Weight 56.971 kg Weight Measurement Method Built in [facility]
[2023-07-18] MEDS ORDERED: APIXABAN 5 MG TABLET PO SCH (10:30)
[2023-07-18] MEDS ORDERED: POT PHOSPHATE MONOBASIC W/ SOD TAB PO SCH (13:00)
--- NOTE | 2023-07-18 13:59 | Discharge Summary ---
Date of Service July 18, 2023 Admission HPI Per Admitting Provider Ms. Borrego is a 77 year old female that presents today with chest pain that started today that she reports was anterior chest pain that started around noon today. She was resting and not being active. She felt SOB with some lightheadedness at that time. Denies cough. She has never had this type of pain before. She took two baby aspirin prior to coming to the ED. She was given Nitro SL x2 via EMS. She was found to be in AF with RVR on arrival. She has a known history of Atrial fibrillation and was prescribed Amiodarone and Coumadin that was started two years ago but stopped all of her medications one year ago and started to take herbal remedies. She does report taking a baby aspirin at home. She was prescribed Metoprolol about 20 years ago, but no longer takes this medication. In the ED she was given Diltiazem 10 mg which improved her ventricular rate. Incidentally found to be hyponatremia 128. CXR showed cardiomegaly with pulmonary vascular congestion and bibasilar L > R . No leukocytosis, Initial Troponin negative, Sodium 128; otherwise electrolytes unremarkable. Last ECHO 08/2021: Normal LV wall motion, EF 60-65%, no valvular abnormalities. Known individual with atrial fibrillation presents with anterior chest pain that started at noon today. She received Nitro SL x2 with minimal relief. She has not been compliant with taking any antiarrhythmics, beta-blockers, or anticoagulants for the past year. Responded to IV Diltiazem in the ED with fluid resuscitation for hyponatremia. ECG QTc [address] changes. Pt denies DUGGAN, dizziness, SOB, visual or auditory changes, abdominal pain or tenderness, recent falls or trauma. Has concerns with going home on Coumadin and Amiodarone; due to frequent testing and she did not feel well taking the Amiodarone that she would like passed on to Cardiology. Patient will be admitted for further evaluation and management. Please see A/P for further details. Admission Exam Per Admitting Provider General: Elderly woman in no distress Eyes: PERRL, conjunctivae normal, not pale, anicteric sclerae, EOM intact bilaterally ENMT: External ear and nose normal, oropharynx normal Respiratory: Normal respiratory effort, no respiratory distress, lungs clear to auscultation, no crackles and no wheezes Cardiovascular: RRR S1 S2 Chest (Breasts): No chest wall tenderness Gastrointestinal (Abdomen): Abdomen is not distended, soft, non-tender to palpation, no guarding, no palpable hepatosplenomegaly, normal bowel sounds Musculoskeletal: No pedal edema Neurologic: Alert and oriented x 3, No focal weakness, sensation grossly intact Psychiatric: Alert and oriented x 3, euthymic affect Principal Diagnosis A flutter with RVR Hyponatremia, likely SIADH Hypertension Discharge Exam GENERAL: Alert and oriented x3. NAD, on RA. HEENT: No pallor, no icterus. Pupils equal, round and reactive to light. Oral mucosa moist. NECK: No JVD, no neck masses. HEART: S1 and S2 heard. irregular rate and rhythm. No murmur, no gallop. RESPIRATORY SYSTEM: Normal AP diameter. No accessory muscle use. No wheezing, no crackles. ABDOMEN: Soft, bowel sounds present, nontender, no distention. CENTRAL NERVOUS SYSTEM: No facial droop. Speech is clear. Obeys simple commands. Moves extremities. EXTREMITIES: No edema, no erythema seen. Discharge Data Allergies Allergy/AdvReac Type Severity Reaction Status Date / Time No Known Allergies Allergy Unverified 07/16/23 17:23 Consultations 07/16/23 17:12 ED Decision to Admit Stat 07/16/23 17:46 Consult Cardiology Routine Ordered Studies 07/16/23 15:32 CT angio chest PE protocol Stat Hospital Course (1) Atrial flutter with rapid ventricular response: (2) Hyponatremia: (3) Hypertension: Plan 77 year old female presented 07/16 with chest pain that started on the day of arrival that she reports was anterior chest pain that started around noon. She was resting and not being active. She felt SOB with some lightheadedness at that time. Denies cough. She was given Nitro SL x2 via EMS with minimal relief. She was found to be in AF with RVR on arrival. She has a known history of Atrial fibrillation and was prescribed Amiodarone and Coumadin that was started two years ago but stopped all of her medications one year ago and started to take herbal remedies. She does report taking a baby aspirin at home. She was prescribed Metoprolol about 20 years ago, but no longer takes this medication. In the ED she was given Diltiazem 10 mg which improved her ventricular rate. Responded to it. She was managed for the following: Atrial flutter with RVR: Known diagnosis of AF. ChadsVasc 4 Stopped betablocker, antiarrhythmic, and anticoagulation 1 year ago. Resorted to herbal remedies. CXR Cardiomegaly with pulmonary vascular congestion. 2. Bibasilar consolidation, left greater than right. Last ECHO 08/2021: Normal LV wall motion, EF 60-65%, no valvular abnormalities. Patient reports baseline cough, no new worsening of cough. Chest CTA negative for PE Troponin x2 negative. EKG with a flutter with AV block. Echo with EF of 60 to 65%, LV is normal in size/systolic function/wall motion. Mild concentric LVH noted. Patient transitioned to Eliquis 5 mg twice daily, continue with metoprolol. Cardiology evaluated, appreciate recommendation. Rate under control. Patient hemodynamically stable. Hyponatremia: Admitting serum sodium 128; received 1LNSB in ED Serum osmolality 269, urine osmolality 567 and urine sodium 89 Likely SIADH, free fluid restriction of 1500 mL, increase protein content in diet, BMP in a.m. Low Na diet. Sodium already improving. Patient counselled regarding fluid restriction/low- sodium diet/incorporating protein intake in diet. HTN: Chronic stable Takes herbal medication supplements Stopped taking Metoprolol years ago c/w w/ meds a above, fairly under control. Disposition: PCP: None; follows with natural provider in the [facility] Code Status: Full Code VTE Prophylaxis: Eliquis Patient is being discharged to home with following instruction at the point of discharge: Follow-up with your primary care physician within a week time and likely you will need labs CBC/CMP/magnesium/phosphorus. Cardiology evaluated you while inpatient, you are being started on Eliquis 5 mg twice a day. Establish and follow-up with cardiology as an outpatient. For your low sodium level in the blood, maintain adequate protein intake in diet/maintain low-sodium diet/maintain fluid restriction of 2 L/day. Take your medications as prescribed. Please make sure that you are able to get your medications today by calling your pharmacy before you leave the hospital so that your treatment continuity is not broken. Please note the above document was generated using voice recognition software. It may contain grammatical, syntax or spelling errors. Any formal questions or concerns about the content, text or information contained within the body of this dictation should be directly addressed to the undersigned for clarification. Home Health Attestation I certify that this patient is under my care and that I, or a physicians medical assistant internal medicine working with me, had a face to-face encounter that meets the home health [id number] encounter requirements with this patient. The encounter with the patient was in whole, or in part, for the following medical condition, which is the primary reason for home health care (list medical condition): I certify that, based on my findings, the following services are medically necessary home health services: My clinical findings support the need for the above services because: Further, I certify that my clinical findings support that this patient is homebound (i.e. absences from home require considerable and taxing effort and are for medical reasons or uatsdin services or infrequently or of short duration when for other reasons) because: Certification for Home Health Services: Based on the above findings, I certify that this patient is confined to the home and needs intermittent alf care, physical therapy and/or speech therapy or continues to need occupational therapy. The patient is under my care, and I have initiated the establishment of the plan of care. This patient will be followed by a physician who will periodically review the plan of care. Total Time Total Time Spent Total Time Spent (In Minutes): 40 Discharge Plan Discharge Items Patient Disposition: Home - Self-Care Reason For Visit: AF RVR Discharge Diagnosis: A flutter with RVR Hyponatremia, likely SIADH Hypertension Activity: Resume your previous activity Non-emergency contact: Primary Care Provider Call non-emergency contact if: you have any medication questions, your symptoms worsen and your temperature is above 101 Follow-up/Referrals: Nehemias Cheng MD [Physician] - 08/04/23 10:45 am (Please bring Eliquis application and bank statement to apt. ) PCP,NO [Primary Care Provider] - Diet: Heart Healthy and Low Potassium (2gm) Addtl Attending Provider Instructions: Follow-up with your primary care physician within a week time and likely you will need labs CBC/CMP/magnesium/phosphorus. Cardiology evaluated you while inpatient, you are being started on Eliquis 5 mg twice a day. Establish and follow-up with cardiology as an outpatient. For your low sodium level in the blood, maintain adequate protein intake in diet/maintain low-sodium diet/maintain fluid restriction of 2 L/day. Take your medications as prescribed. Please make sure that you are able to get your medications today by calling your pharmacy before you leave the hospital so that your treatment continuity is not broken. Pending Studies at Discharge: No Stand-Alone Forms: My [facility], Smoking Cessation Medications and DC Order Prescriptions: New Eliquis 5 mg Tablet 5 mg PO BID Qty: 60 0RF metoprolol tartrate 25 mg Tablet 25 mg PO BID Qty: 60 0RF Continued aspirin [Jules Low Dose Aspirin] 81 mg Tablet,Delayed Release (Dr/Ec) 81 mg PO QAM Discharge Orders: Discharge Order (Routine); Ordered 07/18/23 Ordered By: Roni Borja Admission Data Admit Date/Time: 07/16/23 17:46 Attending Provider: Roni Borja Admit Provider: Kierra Hinojosa I. Primary Care Provider: PCP,NO Other Providers: Kierra Hinojosa I. ; Nehemias Cheng
== END 2023-07-18 17:03 | disposition home or self-care (01) | DRG 309 ==
LOC: ED 15:19 → 2S 17:46 → SUATTDRO 17:46 → 2S 20:45